=== PATIENT | female | born 1955 | race Caucasian/White ===

== ENCOUNTER → 2016-07-30 | Outpatient (CLI) | payer OTHER ==
[~2016-07-30] MED LIST: ACET-1256 PO; ADVIN25/60 INH; ALBU1AER9 INH; CHOL2000 PO; FURO-85 PO; LOSA50TA54 PO; LXP/20 PO; MISCCAP80 PO; OMEP20TA PO; PRAV40TA2 PO; PYRI100T4 PO; TPRSR/25 PO
[2016-07-30 18:22] LABS: ALT/SGPT 29 U/L (12-78); AST/SGOT 17 U/L (15-37); BLOOD UREA NITROGEN 21 mg/dl (7-18); BUN/CREATININE RATIO 20.5 (10-20); CALCIUM 8.8 mg/dl (8.5-10.1); CARBON DIOXIDE 32 mmol/L (21-32); CHLORIDE 103 mmol/L (98-107); GLUCOSE 84 mg/dl (70-99); SODIUM 141 mmol/L (136-145)
[2016-07-30 18:33] LABS: ALB/GLOB RATIO 0.9 (0.9-2); ALKALINE PHOSPHATASE 78 U/L (45-117); CHOLESTEROL 189 mg/dl (0-200); CHOLESTEROL/HDL RATIO 2.9; HDL CHOLESTEROL 66 mg/dl; LDL CHOLESTEROL CALCULATED 106 mg/dl; TRIGLYCERIDES 84 mg/dl (0-150); VERY LOW DENSITY LIPOPROT CALC 17 mg/dl
== END ==
LOC: C.LABPVFM 14:10
PROVIDERS: ATTEND Family Medicine
DX: I10 Essential (primary) hypertension (principal); E78.5 Hyperlipidemia, unspecified; F41.8 Other specified anxiety disorders; I50.32 Chronic diastolic (congestive) heart failure; E55.9 Vitamin D deficiency, unspecified

== ENCOUNTER → 2017-01-07 | Outpatient (CLI) | payer OTHER ==
--- NOTE | 2017-01-07 15:38 | MAMMOGRAPHY REPORT ---
BILATERAL DIGITAL SCREENING MAMMOGRAM TOMOSYNTHESIS WITH CAD: 01/07/2017 CLINICAL HISTORY: Routine screening. Patient has no complaints. TECHNIQUE: Breast tomosynthesis in addition to standard 2D mammography was performed. Current study was also evaluated with a Computer Aided Detection (CAD) system. COMPARISON: Comparison is made to exams dated: 01/07/2016 mammogram, 01/01/2015 mammogram, 08/08/2013 mammogram, 06/19/2012 mammogram, 06/14/2011 mammogram, and 06/11/2010 mammogram - [facility]. BREAST COMPOSITION: There are scattered areas of fibroglandular density in both breasts. FINDINGS: No suspicious masses, calcifications, or areas of architectural distortion are noted in ei ther breast. There has been no significant interval change compared to prior exams. Scattered bilater al benign-appearing calcifications are not significantly changed. A marker clip is again noted withi n the left 12:00 breast. Circumscribed oval benign-appearing 7 mm mass within the left upper inner q uadrant posteriorly is stable dating back to at least the 2014 exam. IMPRESSION: ACR BI-RADS CATEGORY 2: BENIGN There is no mammographic evidence of malignancy. A 1 year screening mammogram is recommended. The pa tient will receive written notification of the results. Approximately 10% of breast cancers are not detected with mammography. A negative mammographic report should not delay biopsy if a clinically suggestive mass is present. Charo Alas M.D. /:01/07/2017 15:23:01 Title Insurance Agent: Jewell HUI(Alena)(Johnson)(PIETRO), [facility] letter sent: Normal 1/2 BI-RADS Code: ACR BI-RADS Category 2: Benign
== END | disposition home or self-care (01) ==
LOC: C.MAMM 11:06
PROVIDERS: ATTEND Family Medicine
DX: Z12.31 Encounter for screening mammogram for malignant neoplasm of breast (principal)

== ENCOUNTER → 2017-01-27 | Outpatient (CLI) | payer OTHER ==
[2017-01-27 18:01] LABS: ALT/SGPT 32 U/L (12-78); BLOOD UREA NITROGEN 17 mg/dl (7-18); BUN/CREATININE RATIO 17.6 (10-20); CARBON DIOXIDE 32 mmol/L (21-32); CHLORIDE 103 mmol/L (98-107); CHOLESTEROL 182 mg/dl (0-200); CREATININE 0.98 mg/dl (0.60-1.20); GLUCOSE 85 mg/dl (70-99); POTASSIUM 4.2 mmol/L (3.5-5.1); SODIUM 139 mmol/L (136-145)
[2017-01-27 18:04] LABS: ALB/GLOB RATIO 1.3 (0.9-2); ALKALINE PHOSPHATASE 69 U/L (45-117); AST/SGOT 21 U/L (15-37); CHOLESTEROL/HDL RATIO 2.8; HDL CHOLESTEROL 64 mg/dl; LDL CHOLESTEROL CALCULATED 99 mg/dl; TRIGLYCERIDES 95 mg/dl (0-150); VERY LOW DENSITY LIPOPROT CALC 19 mg/dl
== END | disposition home or self-care (01) ==
LOC: C.LABPVFM 12:11
PROVIDERS: ATTEND Family Medicine
DX: K21.9 Gastro-esophageal reflux disease without esophagitis (principal); J45.909 Unspecified asthma, uncomplicated; I50.32 Chronic diastolic (congestive) heart failure; F41.8 Other specified anxiety disorders; E78.5 Hyperlipidemia, unspecified; I11.0 Hypertensive heart disease with heart failure

== ENCOUNTER → 2017-09-07 | Outpatient (CLI) | payer OTHER ==
--- NOTE | 2017-09-07 14:13 | DIAGNOSTIC IMAGING REPORT ---
LEFT SHOULDER 3 VIEWS HISTORY: LT SHOULDER PAIN COMPARISON: None. FINDINGS: There is no fracture or dislocation. The left clavicle is intact. Mild AC joint arthrosis. Moderate cartilage space narrowing with subchondral sclerosis and marginal osteophytes at the glenohumeral joint. This is consistent with osteoarthritis. No radiopaque foreign bodies. IMPRESSION: 1. No fracture or dislocation within the left shoulder. 2. Moderate osteoarthritis at the glenohumeral joint. Electronically signed by: Wilder Vaca M.D. 09/07/2017 2:12 PM Dictated Date/Time: 09/07/2017 2:11 PM
[2017-09-07 17:48] LABS: BLOOD UREA NITROGEN 16 mg/dl (7-18); CARBON DIOXIDE 30 mmol/L (21-32); CREATININE 0.89 mg/dl (0.60-1.20); GLUCOSE 87 mg/dl (70-99); POTASSIUM 4.2 mmol/L (3.5-5.1); SODIUM 141 mmol/L (136-145)
[2017-09-07 17:49] LABS: ALBUMIN 3.8 gm/dl (3.4-5.0); ALKALINE PHOSPHATASE 76 U/L (45-117); ALT/SGPT 22 U/L (12-78); AST/SGOT 16 U/L (15-37); CALCIUM 8.8 mg/dl (8.5-10.1); CHOLESTEROL 204 mg/dl (0-200); LDL CHOLESTEROL CALCULATED 111 mg/dl; TOTAL PROTEIN 7.7 gm/dl (6.4-8.2)
== END | disposition home or self-care (01) ==
LOC: C.LABPVFM 13:21
PROVIDERS: ATTEND Family Medicine
DX: M25.512 Pain in left shoulder (principal); I10 Essential (primary) hypertension; E78.5 Hyperlipidemia, unspecified; J45.909 Unspecified asthma, uncomplicated; F41.8 Other specified anxiety disorders; I50.32 Chronic diastolic (congestive) heart failure; K21.9 Gastro-esophageal reflux disease without esophagitis

== ENCOUNTER 2020-08-29 07:57 | Observation (INO) ==
--- NOTE | 2020-08-06 12:41 | PAT Medication Instructions ---
Medication Instructions Date of Service August 06, 2020 Home Medications Medication Instructions Recorded acetaminophen 500 mg tablet 1,000 mg PO DIRECTED PRN #30 tab 09/29/18 fluticasone 250 mcg-salmeterol 50 See Rx Instructions .ROUTE 01/04/20 mcg/dose blistr powdr for .COMPLEX #60 unspecified inhalation furosemide 20 mg tablet 20 mg PO QAM #90 tab 02/11/20 furosemide 20 mg tablet 20 mg PO QAM #90 tab 02/11/20 losartan 50 mg tablet 50 mg PO QAM #90 tab 02/11/20 losartan 50 mg tablet 50 mg PO QAM #90 tab 02/11/20 metoprolol succinate 25 mg 25 mg PO DAILY #90 tab 02/11/20 tablet,extended release 24 hr pravastatin 40 mg tablet 40 mg PO DAILY #90 tab 02/11/20 escitalopram oxalate 20 mg tablet 20 mg PO QAM #90 tab 04/04/20 albuterol sulfate 90 mcg/actuation 2 puff INHALATION BID PRN #18 g 07/09/20 aerosol inhaler tramadol 50 mg tablet 50 mg PO Q8H PRN #30 tab 07/23/20 acetaminophen 500 mg tablet 1,000 mg PO DIRECTED PRN fluticasone 250 mcg-salmeterol 50 mcg/dose blistr powdr for inhalation See Rx Instructions .ROUTE .COMPLEX furosemide 20 mg tablet 20 mg PO QAM losartan 50 mg tablet 50 mg PO QAM metoprolol succinate 25 mg tablet,extended release 24 hr 25 mg PO DAILY pravastatin 40 mg tablet 40 mg PO DAILY escitalopram oxalate 20 mg tablet 20 mg PO QAM albuterol sulfate 90 mcg/actuation aerosol inhaler 2 puff INHALATION BID PRN tramadol 50 mg tablet 50 mg PO Q8H PRN metoprolol succinate 25 mg PO QAM multivitamin 1 tab PO QAM omeprazole 20 mg PO QAM pravastatin 40 mg PO QAM DO NOT take the morning of surgery furosemide 20 mg tablet 20 mg PO QAM losartan 50 mg tablet 50 mg PO QAM multivitamin 1 tab PO QAM Take morning of surgery With a small sip of water, OTHERWISE NOTHING TO EAT OR DRINK AFTER MIDNIGHT: acetaminophen 500 mg tablet 1,000 mg PO DIRECTED PRN (okay to take up to 4 hours prior to surgery if needed) fluticasone 250 mcg-salmeterol 50 mcg/dose blistr powdr for inhalation See Rx Instructions .ROUTE .COMPLEX metoprolol succinate 25 mg tablet,extended release 24 hr 25 mg PO DAILY pravastatin 40 mg tablet 40 mg PO DAILY escitalopram oxalate 20 mg tablet 20 mg PO QAM albuterol sulfate 90 mcg/actuation aerosol inhaler 2 puff INHALATION BID PRN (use if needed; please bring rescue inhaler with you to hospital day of surgery if possible) tramadol 50 mg tablet 50 mg PO Q8H PRN (okay to take up to 4 hours prior to surgery if needed) metoprolol succinate 25 mg PO QAM omeprazole 20 mg PO QAM pravastatin 40 mg PO QAM Take evening before surgery acetaminophen 500 mg tablet 1,000 mg PO DIRECTED PRN (if needed) fluticasone 250 mcg-salmeterol 50 mcg/dose blistr powdr for inhalation See Rx Instructions .ROUTE .COMPLEX albuterol sulfate 90 mcg/actuation aerosol inhaler 2 puff INHALATION BID PRN (if needed) tramadol 50 mg tablet 50 mg PO Q8H PRN (if needed) Other Notes If you have any questions please call us at [phone] or [phone] or [phone] or [phone]
--- NOTE | 2020-08-07 13:26 | Anesthesiology Consultation ---
Date of Service August 07, 2020 The patient will be seen by her PCP prior to surgery. There is some concern about her daily albuterol use. Assessment & Plan (1) Encounter for pre-operative examination: COVID Status: As of 08/07 assessment, patient denies travel to endemic area, known exposure/sick contacts, or symptoms of COVID19. Patient advised to adhere to social distancing guidelines, wear a mask in public and avoid large crowds or unnecessary travel in the 2 weeks leading up to surgery. Preoperative COVID19 testing to be completed prior to surgery per surgeon's arrangements (pt reports 08/20, too far in advance, should be 08/27, will inform surgeon's office). Patient encouraged to be extra cautious/conscientious with COVID precautions between COVID testing and surgery. Possible difficult intubation. Chart Review Chart Review: Acceptable Risk for Surgery and Patient seen in Pre Admission Testing Teaching & Discussion Instructed NPO after midnight before surgery, except medications with 15 cc of water. Medication instructions provided according to the PAT guidelines. History Surgery Operation Date: 08/29/20 08:20 Proposed Procedures p Right Reverse Total Shoulder Arthroplasty - Seb Gonzalez, Height/Weight Height: 5 ft 2 in Weight: 100.7 kg Allergies Allergy/AdvReac Type Severity Reaction Status Date / Time No Known Allergies Allergy Unknown Verified 07/25/20 13:22 Medications Home Medications Medication Instructions Recorded Confirmed Last Taken acetaminophen 500 mg tablet 1,000 mg PO DIRECTED PRN #30 tab 09/29/18 07/25/20 Unknown fluticasone 250 mcg-salmeterol 50 See Rx Instructions .ROUTE 01/04/20 07/25/20 Unknown mcg/dose blistr powdr for .COMPLEX #60 unspecified inhalation furosemide 20 mg tablet 20 mg PO QAM #90 tab 02/11/20 02/11/20 Unknown furosemide 20 mg tablet 20 mg PO QAM #90 tab 02/11/20 07/25/20 Unknown losartan 50 mg tablet 50 mg PO QAM #90 tab 02/11/20 02/11/20 Unknown losartan 50 mg tablet 50 mg PO QAM #90 tab 02/11/20 07/25/20 Unknown metoprolol succinate 25 mg 25 mg PO DAILY #90 tab 02/11/20 02/11/20 Unknown tablet,extended release 24 hr pravastatin 40 mg tablet 40 mg PO DAILY #90 tab 02/11/20 02/11/20 Unknown escitalopram oxalate 20 mg tablet 20 mg PO QAM #90 tab 04/04/20 07/25/20 Unknown albuterol sulfate 90 mcg/actuation 2 puff INHALATION BID PRN #18 g 07/09/20 07/25/20 Unknown aerosol inhaler tramadol 50 mg tablet 50 mg PO Q8H PRN #30 tab 07/23/20 07/25/20 Unknown metoprolol succinate 25 mg PO QAM 07/25/20 07/25/20 Unknown multivitamin 1 tab PO QAM 07/25/20 07/25/20 Unknown omeprazole 20 mg PO QAM 07/25/20 07/25/20 Unknown pravastatin 40 mg PO QAM 07/25/20 07/25/20 Unknown Past Medical History Medical History (Updated 08/07/20 @ 13:46 by Sushil Klein) Asthma Advair daily and albuterol a few times per day Atypical chest pain [place] [facility] [place] for [place]. At the time reported chest discomfort at random but most often during times of increased emotional stress. EKG normal sinus with no acute STT wave abnormality. Also had work-up for this in 2017 with normal DSE. Per cardiology can follow-up as needed but no further cardiovascular testing or intervention recommended. Patient denies any recent chest pain at PAT. Chronic diastolic (congestive) heart failure Follows with PCP, on Lasix daily, low Na+ diet. Euvolemic on exam. 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 No longer on anticoagulation. Exercise / Class Metabolic Activity III < 4 Walking/Shop/Light housework Past Family History Family History (Updated 07/25/20 @ 13:35 by Winsome Serra RN) Grandmother Breast cancer Father Diabetes Heart disease Myocardial infarction Grandfather Diabetes Stroke Brother Myocardial infarction Uncle Family hx of colon cancer Denies family history of Ovarian cancer Prostate cancer Lung cancer Colorectal cancer Hypertension Past Surgical History Surgical History (Updated 08/07/20 @ 13:23 by Sushil Klein) History of carpal tunnel surgery LEFT History of colonoscopy History of hand surgery MASS REMOVAL FROM FINGER History of oral surgery REMOVAL GROWTH UNDER TONGUE S/P tonsillectomy Past Anesthesia History No Hx of Anesthesia Complications and No Family Hx of Anesthesia Complications History of PONV No Hx of PONV and No Hx of Motion Sickness Social History Smoking Status: Never smoker Do You Dip or Chew Tobacco: No Hx Alcohol Use: No Alcohol type: beer Hx Substance Use: No Review of Systems Pt denies any recent chest pain, shortness of breath, palpitations, cough, fever, URI, or uncontrolled acid reflux (controlled with PPI). Physical Exam Vital Signs BP: 112/74 P: 67bpm SPO2: 95% RA T: 98.2 F R: 12 Constitutional + morbidly obese ENMT Mouth: + poor dentition (many missing), + chipped teeth and + macroglossia; no dental restorations and no loose teeth Thyromental Distance: < 3.5 Finger Breadths (2) Mallampati Class: I Neck + short neck and + thick neck; neck extension not limited Respiratory normal respiratory effort, lungs clear to auscultation Cardiovascular RRR, no murmur, no edema Lab Results Anesthesia Preop Results Results Anesthesia Widget: WBC 5.61 K/uL (4.8-10.8) 08/07/20 Hgb 12.5 g/dL (12.0-16.0) 08/07/20 Hct 39.1 % (37-47) 08/07/20 Plt 245 K/uL (130-400) 08/07/20 Na 140 mmol/L (136-145) 08/07/20 K 4.2 mmol/L (3.5-5.1) 08/07/20 Cl 103 mmol/L (98-107) 08/07/20 CO2 30 mmol/L (21-32) 08/07/20 BUN 17 mg/dl (7-18) 08/07/20 Creat 0.80 mg/dl (0.6-1.2) 08/07/20 Glucose Level 90 mg/dl (70-99) 08/07/20 PT 9.9 Seconds (9.0-12.0) 08/07/20 PTT 25.2 Seconds (21.0-31.0) 08/07/20 INR 1.0 (0.9-1.1) 08/07/20 Blood Type A Positive 08/07/20 Antibody Screen NEGATIVE 08/07/20 Testing Electrocardiogram Date: 08/07/20 Findings: + NSR @ (67bpm) and + no change from (2015) Chest X-Ray Date: 08/07/20 FINDINGS: No pneumothorax. No pleural effusion. Minimal atelectasis is seen at the left base. Redemonstration of diffuse prominence of pulmonary interstitium throughout otto ateral lungs, unchanged since prior study performed almost 3 years ago. Cardiomediastinal silhouette is within normal limits in size. Right hilum is enlarged. Aorta is tortuous.. Osseous structures: Degenerative changes of the spine. Interval development of severe degenerative changes of bilateral shoulders. IMPRESSION: 1. Minimal atelectasis at the left base. 2. Prominence of the right hilum. 3. Other findings as above. Stress Test Date: 11/01/16 Type: DSE Negative dobutamine stress echo at 87% MPHR. Patient achieved target heart rate in stage I of protocol with minimal dobutamine in part secondary to anxiety. Normal resting LV size and function with EF 55-60%. Normal RV size and function. No significant valvular pathology.
--- NOTE | 2020-08-28 16:51 | History & Physical Report ---
Date of Service August 28, 2020 Assessment & Plan (1) Osteoarthritis of right shoulder: We will proceed with a right reverse shoulder arthroplasty. Postoperatively she will be placed in a sling and kept overnight in the hospital for postoperative medical management. She plans to go to [facility] for therapy upon discharge. History of Present Illness Chief Complaint: Advanced osteoarthritis of the right shoulder. Primary Care Provider: July Willard MD Erica is a pleasant 65-year-old female who is been doing chronic worsening arthritis of her right shoulder. X-rays and clinical examination have been diagnostic for the arthritis. She had multiple injections in her shoulder without much relief. After failing conservative treatment, she has elected proceed with a right reverse shoulder replacement.. Allergies Allergy/AdvReac Type Severity Reaction Status Date / Time No Known Allergies Allergy Unknown Verified 08/29/20 08:29 Home Medications Medication Instructions Recorded Confirmed Type acetaminophen 500 mg tablet 1,000 mg PO DIRECTED PRN #30 tab 09/29/18 08/29/20 Rx fluticasone 250 mcg-salmeterol 50 See Rx Instructions .ROUTE 01/04/20 08/29/20 Rx mcg/dose blistr powdr for .COMPLEX #60 unspecified inhalation furosemide 20 mg tablet 20 mg PO QAM #90 tab 02/11/20 08/29/20 Rx losartan 50 mg tablet 50 mg PO QAM #90 tab 02/11/20 08/29/20 Rx escitalopram oxalate 20 mg tablet 20 mg PO QAM #90 tab 04/04/20 08/29/20 Rx albuterol sulfate 90 mcg/actuation 2 puff INHALATION BID PRN #18 g 07/09/20 08/29/20 Rx aerosol inhaler tramadol 50 mg tablet 50 mg PO Q8H PRN #30 tab 07/23/20 08/29/20 Rx metoprolol succinate 25 mg PO QAM 07/25/20 08/29/20 History multivitamin 1 tab PO QAM 07/25/20 08/29/20 History omeprazole 20 mg PO QAM 07/25/20 08/29/20 History pravastatin 40 mg PO QAM 07/25/20 08/29/20 History Past Med/Surg History Medical History Asthma Advair daily and albuterol a few times per day Atypical chest pain [place] [facility] [place]. At the time reported chest discomfort at random but most often during times of increased emotional stress. EKG normal sinus with no acute STT wave abnormality. Also had work-up for this in 2017 with normal DSE. Per cardiology can follow-up as needed but no further cardiovascular testing or intervention recommended. Patient denies any recent chest pain at PAT. Chronic diastolic (congestive) heart failure Follows with PCP, on Lasix daily, low Na+ diet. Euvolemic on exam. 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 No longer on anticoagulation. Surgical History History of carpal tunnel surgery LEFT History of colonoscopy History of hand surgery MASS REMOVAL FROM FINGER History of oral surgery REMOVAL GROWTH UNDER TONGUE S/P tonsillectomy Family History Grandmother Breast cancer Father Diabetes Heart disease Myocardial infarction Grandfather Diabetes Stroke Brother Myocardial infarction Uncle Family hx of colon cancer Denies family history of Ovarian cancer Prostate cancer Lung cancer Colorectal cancer Hypertension Social History Smoking Status: Never smoker Second Hand Exposure: Yes (SPOUSE SMOKES); Do You Dip or Chew Tobacco: No; Hx Alcohol Use: No Hx Substance Use: No Preferred Language: Yoruba Communication Ability: Effective Health Program Analyst Required: No Beliefs That Will Affect Care: None marital status: Current Living Situation: Spouse current occupational status: retired How many Children do You have: 2 Other Information That Helps Us Care for You: No Feels Safe at Home: Yes Safety Concerns: Feels Safe At This Time caffeine: Yes (coffee) Dental Care, Regularly: No Physical Activity Frequency: 1-2 Times per Week Seatbelt Use: always Sunscreen Use: No Assistive Devices: Brace/Splint/Immobilizer and Glasses Assistive Devices Comment: BACK BRACE PRN Review of Systems All systems reviewed & are unremarkable except as noted in HPI & below. Physical Exam On physical examination of the right shoulder, she has about 80 degrees of forward elevation 80 degrees of abduction. She also has some weakness possibly secondary to pain.. Constitutional WD/WN, vitals as above Eyes PERRL, conjunctivae normal, anicteric sclerae ENMT external ear and nose normal, oropharynx normal Neck trachea midline, no thyromegaly Respiratory normal respiratory effort Cardiovascular RRR, no murmur, no edema Gastrointestinal (Abdomen) normal bowel sounds, soft, nontender, no hepatosplenomegaly Psychiatric A+Ox3, euthymic affect Results & Data Results & Data Laboratory Results . Diagnostic Findings X-rays of the right shoulder do show advanced osteoarthritis with joint space narrowing, osteophyte formation, and [id number] articulation. PG Care Time/CCT Total # of Minutes Spent Total Time Spent with Patient: Total time spent is greater than 50% in coordination of care (as documented) at patient's floor/unit and/or counseling patient: Coding Level of Care Code None Diagnoses Osteoarthritis of right shoulder M19.011
[~2020-08-29 07:57] MED LIST changes: -ACET-1256 PO; +ACETAMINOPHEN 500 MG TAB PO SCH; -ADVIN25/60 INH; -ALBU1AER9 INH; +BUPIVACAINE 0.5 % 5 MG/1 ML PF 10ML VIAL ONE; -CHOL2000 PO; +FAMOTIDINE 20 MG TAB PO SCH; -FURO-85 PO; +GABAPENTIN 300 MG CAP PO SCH; -LOSA50TA54 PO; +LR 15ML/HR IV SCH; +LR 60ML/HR IV SCH; -LXP/20 PO; -MISCCAP80 PO; -OMEP20TA PO; -PRAV40TA2 PO; -PYRI100T4 PO; -TPRSR/25 PO; +TRANEXAMIC ACID 1,000 MG **IV Pre-op IV SCH; +ceFAZolin 2000MG 2,000 MG/15 ML SYR IV SCH; +dexAMETHasone 4 MG TAB PO SCH
[2020-08-29] MEDS ORDERED: dexAMETHasone 4 MG TAB PO ONE (08:33)
[2020-08-29] MEDS ORDERED: ACETAMINOPHEN 500 MG TAB ONE (08:33)
[2020-08-29] MEDS ORDERED: TRANEXAMIC ACID / 0.7% NACL 1000MG/100ML BAG IV ONE ×2 (08:33→11:40)
[2020-08-29] MEDS ORDERED: FAMOTIDINE 20 MG TAB ONE (08:33)
[2020-08-29] MEDS ORDERED: ceFAZolin 2,000 MG/15 ML IV PUSH IV ONE (08:34)
[2020-08-29] MEDS ORDERED: PHENYLEPHRINE 100MCG/ML 5ML SYR ONE (09:40)
[2020-08-29] MEDS ORDERED: fentaNYL citrate 100 MCG/2 ML VIAL ONE (09:40)
[2020-08-29] MEDS ORDERED: ONDANSETRON INJ 2 MG/ML 2 ML VIAL ONE (09:40)
[2020-08-29] MEDS ORDERED: PROPOFOL IV EMULSION 10 MG/ML 20 ML VIAL IV ONE (09:40)
[2020-08-29] MEDS ORDERED: MIDAZOLAM HCL 1 MG/ML 2ML VIAL ONE (09:40)
[2020-08-29] MEDS ORDERED: ePHEDrine sulfate 50 MG/ML AMP ONE (09:40)
[2020-08-29] MEDS ORDERED: DEXAMETHASONE SOD INJ 4 MG/ML VIAL ONE (09:40)
[2020-08-29] MEDS ORDERED: ATROPINE SULFATE 0.1 MG/ML 10ML SYR IV PRN (10:27)
[2020-08-29] MEDS ORDERED: ePHEDrine sulfate 50 MG/ML AMP IV PRN (10:27)
[2020-08-29] MEDS ORDERED: fentaNYL citrate 100 MCG/2 ML VIAL IV PRN (10:27)
[2020-08-29] MEDS ORDERED: ONDANSETRON INJ 2 MG/ML 2 ML VIAL IV PRN ×2 (10:27→14:35)
--- NOTE | 2020-08-29 10:35 | History & Physical Bridge Note ---
Date of Service August 29, 2020 History & Physical Bridge Note I have examined the patient, reviewed the History & Physical and in the interval since the performance of the History & Physical I have noted the following changes of clinical significance: no changes noted
[2020-08-29] MEDS ORDERED: ROPIVACAINE 0.5% HCL/PF 150 MG, BUPIVACAINE 0.75% MPF 20 ML, EPINEPHrine 30MG/30ML (OR ... INFIL SCH (12:30)
--- NOTE | 2020-08-29 13:20 | Operative Report ---
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 X-rays and clinical examination been diagnostic for advanced osteoarthritis of the right shoulder. After failing conservative treatment, she has elected to proceed with a right reverse shoulder replacement. Description of Procedure A CPT code modifier 59: The long head of the biceps tendon was enlarged and inflamed consistent with tendinopathy. A tenodesis was opted. This was a separate and distinct portion of the procedure. For these reasons, a CPT code modifier 59 will be added to this case. Implants used: I used a [employer]omet Comprehensive reverse total shoulder arthroplasty system with a size 6 press fit micro humeral stem, a standard humeral tray and a +3 humeral bearing, a 25 mm medium augment baseplate with a 6.5 mm central screw and superior and inferior locking screws, and a size 40 mm eccentric glenosphere. Erica arrived at [facility] for the above procedure. She was seen in the preoperative holding area and the operative extremity was identified and signed. She was given a preoperative antibiotic, TXA, and an interscalene nerve block. She was taken back to the operating room, laid on table in supine position, and put under general anesthesia. She was then put into the beachchair position. The shoulder was then prepped and draped in sterile fashion. A timeout was done and the patient and the operative extremity was properly identified. A deltopectoral approach was used. Dissection was taken down through the fascia and the deltoid was retracted laterally and the conjoined tendon was retracted medially. The anterior shoulder was exposed. The biceps groove was opened up and the biceps tendon was examined extensively. The biceps tendon demonstrated enlargement and inflammatory changes consistent with longstanding inflammation in the context of osteoarthritis and cuff arthropathy. The long head of the bic eps tendon was then tenodesed to the upper border of the pectoralis major. This was a separate and distinct portion of the procedure. The subscapularis was then directly released off the lesser tuberosity with a peel technique. The inferior capsule was released and the humeral head was dislocated. A canal finding reamer was sent down the center of the humeral canal. Sequential reaming up to a size 6 reamer was done. Off that reamer, a proximal humeral resection guide was placed. The proximal humerus was resected at 135 of inclination and 25 of retroversion. Osteophytes were then removed and the glenoid was exposed. Time was spent doing a complete capsular and labral release. The glenoid guide was then placed in the inferior aspect of the glenoid. A 3.2 mm Steinmann pin was then placed into the glenoid vault at 10 of inclination. The glenoid baseplate was then reamed. The final size 25 mm medium augment baseplate was then impacted in the place. A 6.5 mm central screw was then placed followed by superior and inferior locking screws. A 40 mm eccentric glenosphere was then impacted into place. Surrounding soft tissues were then injected with 100 cc an orthopedic pain control cocktail. The proximal humerus was then exposed. Sequential broaching of the humerus up to a size 6 broach was done. Off that broach a +3 thickness humeral tray was trialed. The shoulder was then reduced, brought through a full range of motion, and felt to be stable. The shoulder was then dislocated and the broach was removed. The final size 6 micro press-fit humeral stem was then impacted into place. A +3 humeral bearing was then snapped onto a standard offset humeral tray. The humeral tray was then impacted onto the humeral stem. The shoulder was once again reduced, brought through a full range of motion, and felt to be stable. The subscapularis was not able to be repaired. A dilute betadyne lavage was then done for 3 minutes. The joint was then irrigated with normal saline solution. Hemostasis was obtained. The interval was closed with 2-0 Vicryl suture. The skin was then closed with 2-0 Vicryl and jocelyn. A Silverlon dressing was placed and the arm was rested in a regular arm sling. She was then extubated and transferred to a hospital bed. She taken to the postanesthesia care unit in stable condition. She tolerated the procedure well. Seb Peaz PA-C, was present for the entire procedure. He was critical for patient positioning, prepping, draping, retraction exposure, wound closure and application of sterile dressing. I attest to the content of the Intraoperative Record and any orders documented therein. Any exceptions are noted below.
--- NOTE | 2020-08-29 14:23 | XRay Report ---
RIGHT SHOULDER 2 VIEWS CLINICAL HISTORY: Postoperative examination. FINDINGS: 2 portable views of the right shoulder are obtained. The skeletal structures are osteopenic . A right shoulder arthroplasty is in near anatomic alignment. No acute fracture is identified. Mild degenerative change is seen at the acromioclavicular joint. Skin clips, soft tissue swelling, and sub cutaneous gas are expected postoperative findings. The visualized right lung parenchyma appears clear noting basilar atelectasis. IMPRESSION: Expected postoperative findings status post right shoulder arthroplasty. No acute fractur e is seen. Electronically signed by: Sukumar Valenzuela M.D. 08/29/2020 2:22 PM
[2020-08-29] MEDS ORDERED: oxyCODONE HCL IR 5 MG TAB (IMMEDIATE RELEASE) PO PRN (14:35)
[2020-08-29] MEDS ORDERED: MAGNESIUM HYDROXIDE SUSP 30 ML UDC PO PRN (14:35)
[2020-08-29] MEDS ORDERED: METOCLOPRAMIDE HCL INJ 5 MG/ML 2 ML VIAL IV PRN (14:35)
[2020-08-29] MEDS ORDERED: bisacodyL 10 MG SUPP PR PRN (14:35)
[2020-08-29] MEDS ORDERED: SODIUM CHLORIDE 0.9% 1000ML 1,000 ML IV SCH (14:35)
[2020-08-29] MEDS ORDERED: NALOXONE HCL 0.4 MG/1 ML VIAL/CARP IV PRN (14:35)
[2020-08-29] MEDS ORDERED: HYDROmorphone INJ 0.5 MG/0.5 ML SYR IV PRN (14:35)
--- NOTE | 2020-08-29 14:47 | Anesthesiology Progress Note ---
Date of Service August 29, 2020 Anesthesia Post Procedure Vital Signs Vital Signs: Temp Pulse Pulse Resp BP Pulse Ox 08/29/20 14:30 97.7 F 101 H 16 132/80 100 08/29/20 14:15 97.0 F L 94 H 20 155/98 H 95 08/29/20 14:05 86 18 140/87 94 08/29/20 13:55 92 H 18 115/90 94 08/29/20 13:45 83 18 142/82 H 96 08/29/20 13:36 97.5 F L 90 14 149/87 H 98 08/29/20 08:37 98.1 F 79 22 157/89 H 94 Transfer of Care Handoff Completed per policy Notes Mental Status: alert / awake / arousable and participated in evaluation Patient Amnestic to Procedure: Yes Nausea / Vomiting: adequately controlled Pain: adequately controlled Airway Patency, RR, SpO2: stable & adequate BP & HR: stable & adequate Hydration State: stable & adequate Anesthetic Complications: no major complications apparent and Pt Satisfied with anesthetic care
[2020-08-29] MEDS ORDERED: ALBUTEROL HFA 8 GM INHALER INH PRN (14:52)
[2020-08-29] MEDS: ACETAMINOPHEN 500 MG TAB PO SCH ×2 (16:34→23:42)
[2020-08-29] MEDS: KETOROLAC TROMETHAMINE 15 MG/ML VIAL IV SCH ×2 (16:35→22:45)
[2020-08-29] MEDS: ceFAZolin 2000MG 2,000 MG/15 ML SYR IV SCH (20:50)
[2020-08-29] MEDS ORDERED: SENNA 8.6 MG TAB PO SCH (21:00)
[2020-08-29] MEDS: DOCUSATE SODIUM 100 MG CAP PO SCH (22:44)
[2020-08-30] MEDS: KETOROLAC TROMETHAMINE 15 MG/ML VIAL IV SCH ×2 (04:16→08:43)
[2020-08-30] MEDS: ceFAZolin 2000MG 2,000 MG/15 ML SYR IV SCH (04:16)
--- NOTE | 2020-08-30 07:07 | Orthopedic Progress Note ---
Date of Service August 30, 2020 Assessment & Plan (1) Status post reverse total replacement of right shoulder: Overall she is doing very well. She is not having much pain in the right shoulder. She will be seen by physical therapy today for ambulation and range of motion exercises. She can be discharged home later today. She will follow- up with orthopedics in 2 weeks. Natalie Maldonado was seen and examined at bedside this morning. Overall she is doing fairly well. She is not having much pain in the right shoulder. She was able to get some sleep last night. She has no complaints.. Review of Systems All systems reviewed & are unremarkable except as noted in HPI & below. Physical Exam On physical examination of the right shoulder, the dressing is clean and dry. She has active motion of her hand and her wrist. She is wearing her sling as instructed.. Results & Data Results & Data Laboratory Results . Diagnostic Findings Postoperative x-rays of the right shoulder show the prosthesis to be in anatomic alignment without any evidence of fracture, dislocation, or loosening. PG Care Time/CCT Total # of Minutes Spent Total Time Spent with Patient: Total time spent is greater than 50% in coordination of care (as documented) at patient's floor/unit and/or counseling patient: Coding Level of Care Code 90800 Post Operative Follow-Up Diagnoses Status post reverse total replacement of right shoulder Z96.611
--- NOTE | 2020-08-30 07:08 | Discharge Summary ---
Date of Service August 30, 2020 Admission HPI (Per Admitting) Erica is a pleasant 65-year-old female who is been doing chronic worsening arthritis of her right shoulder. X-rays and clinical examination have been diagnostic for the arthritis. She had multiple injections in her shoulder without much relief. After failing conservative treatment, she has elected proceed with a right reverse shoulder replacement.. Admission Exam (Per Admitting) On physical examination of the right shoulder, she has about 80 degrees of forward elevation 80 degrees of abduction. She also has some weakness possibly secondary to pain.. Principal Diagnosis Same as "Discharge Diagnosis" noted below under Discharge Instructions. Discharge Exam On physical examination of the right shoulder, the dressing is clean and dry. She has active motion of her hand and her wrist. She is wearing her sling as instructed.. Discharge Data Procedures Performed Operation Date: 08/29/20 10:20 Actual Procedures p Right Reverse Total Shoulder Arthroplasty(Right) - Seb Gonzalez DO Ordered Studies 08/29/20 05:00 US - OR guided needle placemen Routine Hospital Course (1) Status post reverse total replacement of right shoulder: On August 29, [address] [facility] and underwent a right reverse shoulder replacement without complication. She had a general anesthetic and a right interscalene nerve block. Postoperatively she was placed in an arm sling and transferred to the general orthopedic floors. Her hospital course was uneventful. On postop day #1 her vital signs were stable and her. Was well controlled. She was able to participate well with physical therapy doing ambulation and range of motion exercises. She was then discharged to home. She will follow-up with orthopedics in 2 weeks. PG Care Time/CCT Total # of Minutes Spent Total Time Spent with Patient: Total time spent is greater than 50% in coordination of care (as documented) at patient's floor/unit and/or counseling patient: Discharge Plan Discharge Items Patient Disposition: Home - Home Health Services Reason For Visit: z01.818 Right Shoulder Osteoarthritis Discharge Diagnosis: Right reverse shoulder replacement Activity: As commented below Non-emergency contact: Surgeon Call non-emergency contact if: your wound has increased redness and your wound has increased drainage Follow-up/Referrals: July Willard MD [Primary Care Provider] - Diet: Regular Addtl Attending Provider Instructions: Activity and Therapy Recommendations: * If you are using [facility] then therapy will be provided at your home until they feel you have accomplished all of your goals. * If you are using [facility] then Physical Therapy will be provided until they feel you are ready to start Outpatient Physical Therapy. * If you are not using home therapy then Outpatient Physical Therapy should start about 3-5 days from your day of surgery. Therapy will last about 8-12 weeks * Wear your sling for 3 weeks, unless otherwise instructed. You may remove your sling to shower and to dress, but otherwise, you should be in your sling at all times, including while sleeping * The shoulder replacement is very stable and you can use your hand while in the sling * You were shown a series of exercises in the hospital. Do these exercises daily including the exercises you were shown in physical therapy. Medications: * Narcotic You will likely be sent home from the hospital with a prescription for the narcotic pain medication that worked best throughout your stay. * Other medications may be prescribed for specific circumstances. If you have any questions, please call the office at . * Resume previous home medications unless otherwise instructed Dressing Care: Leave the Silverlon dressing in place for 7 days. After 7 days you may remove the dressing. If the incision is not draining then you may leave the jocelyn open to air. If there is a little bit of drainage or if the jocelyn are getting stuck on your clothing then cover the incision with a dry dressing. The jocelyn will be removed at your 2 week follow-up appointment. Showering: You may shower with the Silverlon dressing in place. Do not let the shower spray hit the dressing directly. Pat the Silverlon dressing dry. If the dressing becomes wet underneath, then simply remove the dressing. Keep the incision dry until you are 7 days out from the day of surgery. After 7 days you may remove the Silverlon dressing and shower with the jocelyn exposed. Let soapy water run over the jocelyn and pat them dry. Do not scrub or soak the incision. Things To Watch For: * Drainage from the incision site that occurs more than one week after your surgery. * Increased redness at the incision site. * Fever above 102 degrees Fahrenheit. * Unusual chest pain or shortness of breath. * Call [facility] at with any of the above problems Follow-Up Visit: Follow-up with Dr. Gonzalez's PA (Seb Paez) 2-3 weeks after your day of surgery. He will remove your jocelyn and answer any questions. If you have any additional questions or concerns, Dr Gonzalez is usually in the office at the same time and will be available An appointment was probably scheduled when you signed-up for surgery in the office. If you have any questions call More detailed instructions as well as Frequently Asked Questions were provided in a folder by our office when you signed-up for surgery. Please review these instructions when you get home. If you have any further questions or concerns, please feel free to call the office at [phone] Pending Studies at Discharge: No Stand-Alone Forms: [facility] [employer], Smoking Cessation Medications and DC Order Prescriptions: New oxycodone 5 mg Tablet 5 mg PO Q4H PRN (Reason: pain) Qty: 30 RF: 0 Continued fluticasone propion-salmeterol [Advair Diskus] 250-50 mcg/dose blister with device See Rx Instructions .ROUTE .COMPLEX Qty: 60 RF: 5 escitalopram oxalate [Lexapro] 20 mg tablet 20 mg PO QAM Qty: 90 RF: 3 albuterol sulfate [ProAir HFA] 90 mcg/actuation HFA aerosol inhaler 2 puff INHALATION BID PRN (Reason: Shortness Of Breath Or Wheezing) Qty: 18 RF: 5 tramadol 50 mg tablet 50 mg PO Q8H PRN (Reason: pain) Qty: 30 RF: 0 acetaminophen [Tylenol Extra Strength] 500 mg tablet 1,000 mg PO DIRECTED PRN (Reason: Pain) Qty: 30 RF: 2 losartan 50 mg tablet 50 mg PO QAM Qty: 90 RF: 1 furosemide [Lasix] 20 mg tablet 20 mg PO QAM Qty: 90 RF: 1 multivitamin Tablet 1 tab PO QAM RF: 0 pravastatin 40 mg tablet 40 mg PO QAM RF: 0 omeprazole 20 mg capsule,delayed release(DR/EC) 20 mg PO QAM RF: 0 metoprolol succinate 25 mg tablet extended release 24 hr 25 mg PO QAM RF: 0 Discharge Orders: Discharge Order (Routine); Ordered 08/30/20 Ordered By: Seb Gonzalez Admission Data Admit Date/Time: 08/29/20 13:37 Attending Provider: Seb Gonzalez Admit Provider: Seb Gonzalez Primary Care Provider: July Willard
[2020-08-30] MEDS ORDERED: dexAMETHasone 4 MG TAB PO SCH (08:00)
[2020-08-30] MEDS: DOCUSATE SODIUM 100 MG CAP PO SCH (08:45)
[2020-08-30] MEDS: ACETAMINOPHEN 500 MG TAB PO SCH (08:47)
[2020-08-30] MEDS ORDERED: METOPROLOL SUCC 25MG EXT REL TAB PO SCH (09:00)
[2020-08-30] MEDS ORDERED: FLUTICASONE/VILANTEROL 200/25MCG 14 PUFFS/INHALER INH SCH (09:00)
[2020-08-30] MEDS ORDERED: FUROSEMIDE 20 MG TAB PO SCH (09:00)
[2020-08-30] MEDS ORDERED: ESCITALOPRAM OXALATE 20 MG TAB PO SCH (09:00)
[2020-08-30] MEDS ORDERED: MULTIVITAMIN TAB PO SCH (09:00)
[2020-08-30] MEDS ORDERED: LOSARTAN POTASSIUM 50 MG TAB PO SCH (09:00)
== END 2020-08-30 11:45 | disposition home health service (06) ==
LOC: ASU 07:57 → 3E 13:37 → INTOOBSV 13:37

== ENCOUNTER 2020-09-01 22:55 | Observation (INO) ==
[2020-09-02] MEDS ORDERED: SODIUM CHLORIDE 0.9% 1000ML 1,000 ML IV SCH (01:00)
[2020-09-02 01:15] LABS: Basophils # (auto) 0.01 K/uL (0-0.2); Basophils % (auto) 0.1 %; Eosinophils # (auto) 0.05 K/uL (0-0.5); Eosinophils % (auto) 0.7 %; Hematocrit (blood only) 36.1 % (37-47); Hemoglobin 11.5 g/dL (12.0-16.0); Immature Granulocytes # (auto) 0.02 K/uL (0.00-0.02); Immature Granulocytes % (auto) 0.3 %; Lymphocytes # (auto) 2.05 K/uL (1.2-3.4); Lymphocytes % (auto) 29.5 %; Mean Corpuscular Hemoglobin 26.9 pg (25-34); Mean Corpuscular Hgb Conc 31.9 g/dL (32-36); Mean Corpuscular Volume 84.5 fL (80-100); Monocytes % (auto) 8.6 %; Neutrophils # (auto) 4.22 K/uL (1.4-6.5); Neutrophils % (auto) 60.8 %; Platelet Count 291 K/uL (130-400); RDW Coefficient of Variation 16.3 % (11.5-14.5); RDW Standard Deviation 50.5 fL (36.4-46.3); Red Blood Count 4.27 M/uL (4.2-5.4); White Blood Count 6.95 K/uL (4.8-10.8)
[2020-09-02 01:25] LABS: Albumin Level 3.4 gm/dl (3.4-5.0); BUN Creatinine Ratio 21.3 (10-20); Calcium 8.6 mg/dl (8.5-10.1); Creatinine Clr Calc Pharmacy 73.5 ml/min; Est GFR (African American) 84.6 ml/min; Magnesium 2.2 mg/dl (1.8-2.4); Potassium 3.6 mmol/L (3.5-5.1)
[2020-09-02 01:36] LABS: Albumin Globulin Ratio 0.9 (0.9-2); Bilirubin,Total 0.5 mg/dl (0.2-1); Globulin 3.6 gm/dl (2.5-4.0); Thyroid Stimulating Hormone 2.34 uIu/ml (0.300-4.500)
[2020-09-02] MEDS ORDERED: oxyCODONE HCL IR 5 MG TAB (IMMEDIATE RELEASE) PO PRN ×2 (03:06→03:21)
--- NOTE | 2020-09-02 03:07 | Emergency Department Note ---
History of Present Illness General Chief complaint: Leg Injury/Pain Stated complaint: LEG PAIN/SWELLING Source: patient, RN notes reviewed and friends (At the bedside) Mode of arrival: EMS Limitations: no limitations History of Present Illness Provider complaint: Concern for DVT Maximum Pain Intensity: 8 This patient is a 65-year-old female who presents emergency department with complaints of bilateral lower extremity discomfort. Patient states she had a right shoulder replacement performed last week and subsequently felt trying to get into bed. She sustained a periprosthetic fracture and has been in a sling since that time. Her orthopedic surgeon is aware of the incident. Patient states she has had a DVT in the past and is concerned about lower extremity edema. She states she was supposed to have in-home nursing care however her orthopedic surgeon's office has had great difficulty getting this approved through her insurance company. She was not approved for a rehab stay. Patient's friend at the bedside states she does not have any support from her and friends are fearful of taking care of the patient due to her risk of falling. Patient states she has not had any "hygiene care" since the day of surgery. Patient denies any chest pain, significant shortness of breath, headache neck pain or recurrent falls. She states she woke up from a nap and noticed the increase in lower extremity edema. She denies that one leg is worse than the other. Patient is not currently anticoagulated. Home Medications Medication Instructions Recorded Confirmed Type furosemide 20 mg tablet (Lasix) 20 mg PO QAM #90 tab 02/11/20 09/02/20 Rx losartan 50 mg tablet 50 mg PO QAM #90 tab 02/11/20 09/02/20 Rx escitalopram oxalate 20 mg tablet 20 mg PO QAM #90 tab 04/04/20 09/02/20 Rx (Lexapro) albuterol sulfate 90 mcg/actuation 2 puff INHALATION BID PRN #18 g 07/09/20 09/02/20 Rx aerosol inhaler (ProAir HFA) metoprolol succinate 25 mg 25 mg PO QAM 07/25/20 09/02/20 History tablet,extended release 24 hr multivitamin 1 tab PO QAM 07/25/20 09/02/20 History omeprazole 20 mg capsule,delayed 20 mg PO QAM 07/25/20 09/02/20 History release pravastatin 40 mg tablet 40 mg PO QAM 07/25/20 09/02/20 History fluticasone 250 mcg-salmeterol 50 1 inh INHALATION Q12H 09/02/20 09/02/20 History mcg/dose blistr powdr for inhalation (Advair Diskus) acetaminophen 500 mg tablet 1,000 mg PO TID PRN #30 tab 09/03/20 09/02/20 Rx (Tylenol Extra Strength) aspirin 81 mg tablet,delayed 81 mg PO BID 14 Days #28 tab 09/03/20 Rx release (Aspirin Low Dose) oxycodone 5 mg tablet 5 mg PO Q4H PRN #10 tab 09/03/20 Rx polyethylene glycol 3350 17 gram 17 g PO DAILY #14 ea 09/03/20 Rx oral powder packet (Miralax) Allergies Allergy/AdvReac Type Severity Reaction Status Date / Time No Known Allergies Allergy Unknown Verified 09/02/20 00:46 Past Med/Surg History Medical History Asthma Advair daily and albuterol a few times per day Atypical chest pain Se[place] [facility] 03/07/2019 for this. At the time reported chest discomfort at random but most often during times of increased emotional stress. EKG normal sinus with no acute STT wave abnormality. Also had work-up for this in 2017 with normal DSE. Per cardiology can follow-up as needed but no further cardiovascular testing or intervention recommended. Patient denies any recent chest pain at PAT. Chronic diastolic (congestive) heart failure Follows with PCP, on Lasix daily, low Na+ diet. Euvolemic on exam. Depression with anxiety GERD (gastroesophageal reflux disease) Hyperlipidemia Hypertension Obstructive sleep apnea NO DEVICE SOB (shortness of breath) on exertion Venous thromboembolism (~2009) DVT/PE. No longer on anticoagulation. Surgical History History of carpal tunnel surgery LEFT History of colonoscopy History of hand surgery MASS REMOVAL FROM FINGER History of oral surgery REMOVAL GROWTH UNDER TONGUE S/P tonsillectomy Family History Grandmother Breast cancer Father Diabetes Heart disease Myocardial infarction Grandfather Diabetes Stroke Brother Myocardial infarction Uncle Family hx of colon cancer Denies family history of Ovarian cancer Prostate cancer Lung cancer Colorectal cancer Hypertension Social History Smoking Status: Former smoker Tobacco Type: Cigarettes Cigarettes Per Day: Couple per day, quit 8 years ago; Second Hand Exposure: No; Hx Alcohol Use: Yes Alcohol type: beer Alcohol Intake Frequency: Monthly or Less Hx Substance Use: No Preferred Language: Pashto Communication Ability: Effective Billing Department Supervisor Required: No Beliefs That Will Affect Care: None marital status: Current Living Situation: Spouse Current Living Situation Comment: double wide home, 4 steps to enter, current occupational status: retired How many Children do You have: 2 Feels Safe at Home: Yes caffeine: Yes (coffee) Dental Care, Regularly: No Physical Activity Frequency: 1-2 Times per Week Seatbelt Use: always Sunscreen Use: No Assistive Devices: None Review of Systems See HPI for pertinent positives & negatives. and A total of 10 systems reviewed and were otherwise negative Physical Exam Vital Signs Vital Signs - 24 hr 09/01/20 22:43 09/02/20 00:43 09/02/20 00:58 Pulse Rate 85 75 Pulse Rate [Apical] 75 Respiratory Rate 22 20 20 Blood Pressure 127/78 Blood Pressure [Left Arm] 140/67 Blood Pressure Mean 94 Blood Pressure Mean [Left Arm] 91 Blood Pressure Position [Left Arm] Pulse Oximetry 95 99 99 Oxygen Delivery Method Room Air Room Air Oxygen Flow Rate Sepsis Recent Fever Within 48 Hours No Sepsis New/Unexplained Change in Mental Status N/A Sepsis Action Taken by Nursing No Action Required 09/02/20 01:35 09/02/20 03:04 Pulse Rate Pulse Rate [Apical] 85 Respiratory Rate 22 Blood Pressure Blood Pressure [Left Arm] 171/105 H Blood Pressure Mean Blood Pressure Mean [Left Arm] 127 Blood Pressure Position [Left Arm] Sitting Pulse Oximetry 96 94 Oxygen Delivery Method Nasal Cannula Room Air Oxygen Flow Rate 2 Sepsis Recent Fever Within 48 Hours Sepsis New/Unexplained Change in Mental Status Sepsis Action Taken by Nursing Vital signs reviewed. General: Somewhat disheveled 65-year-old female, in no significant distress. HEENT: No scleral icterus, PERRLA, neck supple. Atraumatic. Cardiovascular: Regular rate and rhythm, no extra sounds. Pulmonary: Clear to auscultation bilaterally, normal work of breathing. Abdomen: Soft, nontender, nondistended, positive bowel sounds. Musculoskeletal: Right upper extremity sling in place, twisted about the upper body, no significant right upper extremity edema, neurovascularly intact. Minimal bilateral lower extremity edema, 1+ pitting bilaterally, symmetric. Neurologic: Patient awake alert and oriented x 3 Skin: Warm, dry, no rash Course Administered Medications Discontinued Medications Acetaminophen (Acetaminophen 500 Mg Tab) 1,000 mg PO Q8H [facility] Stop: 10/02/20 03:59 Last Admin: 09/03/20 11:52 Dose: 1,000 mg Documented by: [id number] Admin: 09/03/20 04:19 Dose: 1,000 mg Documented by: [id number] Admin: 09/02/20 21:14 Dose: 1,000 mg Documented by: [id number] Admin: 09/02/20 11:24 Dose: 1,000 mg Documented by: [id number] Admin: 09/02/20 05:14 Dose: 1,000 mg Documented by: [id number] Escitalopram Oxalate (Escitalopram Oxalate 20 Mg Tab) 20 mg PO QAM [facility] Stop: 10/02/20 08:59 Last Admin: 09/03/20 09:09 Dose: 20 mg Documented by: [id number] Admin: 09/02/20 08:23 Dose: 20 mg Documented by: [id number] Fluticasone/Vilanterol (Fluticasone/Vilanterol 200/25mcg 14 Puffs/Inhaler) 1 puffs INH DAILY [facility] Stop: 10/02/20 08:59 Last Admin: 09/03/20 09:09 Dose: 1 puffs Documented by: [id number] Admin: 09/02/20 08:23 Dose: 1 puffs Documented by: [id number] Furosemide (Furosemide 20 Mg Tab) 20 mg PO QAM [facility] Stop: 10/02/20 08:59 Last Admin: 09/03/20 09:09 Dose: 20 mg Documented by: [id number] Admin: 09/02/20 08:24 Dose: 20 mg Documented by: [id number] Heparin Sodium (Porcine) (Heparin Sod 5,000 Unit/0.5 Ml Vial) 5,000 units SQ Q8 [facility] Stop: 10/02/20 05:59 Last Admin: 09/03/20 15:18 Dose: 5,000 units Documented by: [id number] Admin: 09/03/20 06:07 Dose: 5,000 units Documented by: [id number] Admin: 09/02/20 21:15 Dose: 5,000 units Documented by: [id number] Admin: 09/02/20 13:49 Dose: 5,000 units Documented by: [id number] Admin: 09/02/20 05:15 Dose: 5,000 units Documented by: [id number] Sodium Chloride (Nss 1000ml) 1,000 mls @ 125 mls/hr IV .Q8H [facility] Stop: 09/02/20 08:59 Last Infusion: 09/02/20 05:59 Dose: 0 mls/hr Documented by: [id number] Admin: 09/02/20 01:28 Dose: 125 mls/hr Documented by: [id number] Ketorolac Tromethamine (Ketorolac Tromethamine 10 Mg Tablet) 10 mg PO Q6H PRN PRN Reason: moderate pain Stop: 09/07/20 04:01 Last Admin: 09/03/20 15:18 Dose: 10 mg Documented by: [id number] Admin: 09/03/20 07:16 Dose: 10 mg Documented by: [id number] Losartan Potassium (Losartan Potassium 50 Mg Tab) 50 mg PO [facility] Stop: 10/02/20 08:59 Last Admin: 09/03/20 09:09 Dose: 50 mg Documented by: [id number] Admin: 09/02/20 08:24 Dose: 50 mg Documented by: [id number] Metoprolol Succinate (Metoprolol Succ 25mg Ext Rel Tab) 25 mg PO [facility] Stop: 10/02/20 08:59 Last Admin: 09/03/20 09:09 Dose: 25 mg Documented by: [id number] Admin: 09/02/20 08:24 Dose: 25 mg Documented by: [id number] Multivitamins (Multivitamin Tab) 1 tab PO [facility] Stop: 10/02/20 08:59 Last Admin: 09/03/20 09:09 Dose: 1 tab Documented by: [id number] Admin: 09/02/20 08:24 Dose: 1 tab Documented by: [id number] Oxycodone HCl (Oxycodone Hcl Ir 5 Mg Tab (Immediate Release)) 5 mg PO Q4H PRN PRN Reason: severe pain and prePT Stop: 09/16/20 03:05 Last Admin: 09/02/20 18:08 Dose: 5 mg Documented by: [id number] Pantoprazole Sodium (Pantoprazole 40 Mg Tab) 40 mg PO [facility] Stop: 10/02/20 08:59 Last Admin: 09/03/20 09:10 Dose: 40 mg Documented by: [id number] Admin: 09/02/20 08:24 Dose: 40 mg Documented by: [id number] Polyethylene Glycol (Polyethylene (Miralax) 17 Gm Pack) 17 gm PO DAILY [facility] Stop: 10/02/20 18:14 Last Admin: 09/03/20 09:10 Dose: Not Given Documented by: [id number] Admin: 09/02/20 18:23 Dose: 17 gm Documented by: [id number] Pravastatin Sodium (Pravastatin Sod 40 Mg Tab) 40 mg PO QAM [facility] Stop: 10/02/20 08:59 Last Admin: 09/03/20 09:10 Dose: 40 mg Documented by: [id number] Admin: 09/02/20 08:24 Dose: 40 mg Documented by: [id number] Senna/Docusate Sodium (Docusate Sodium/Senna 50/8.6mg Tab) 1 tab PO QAM [facility] Stop: 10/02/20 18:14 Last Admin: 09/03/20 09:09 Dose: Not Given Documented by: [id number] Admin: 09/02/20 18:22 Dose: 1 tab Documented by: [id number] Medical Decision Making Differential Diagnosis DVT, musculoskeletal, infection, joint effusion, trauma, lymphedema, idiopathic, CHF, as well as other pathologies. Medical Records Attestation: I reviewed the patient's medical records. Home Medications Current Medication List: was personally reviewed by me Laboratory Data Attestation: I reviewed the patient's lab results. Result diagrams: 09/01/20 23:11 09/01/20 23:11 Lab Results 09/01/20 09/01/20 09/02/20 Range/Units 23:11 23:11 01:19 WBC 6.95 (4.8-10.8) K/uL RBC 4.27 (4.2-5.4) M/uL Hgb 11.5 L (12.0-16.0) g/dL Hct 36.1 L (37-47) % MCV 84.5 (80-100) fL MCH 26.9 (25-34) pg MCHC 31.9 L (32-36) g/dL RDW Std Deviation 50.5 H (36.4-46.3) fL RDW Coeff of Cristian 16.3 H (11.5-14.5) % Plt Count 291 (130-400) K/uL MPV 10.0 (7.4-10.4) fL Immature Gran % (Auto) 0.3 % Neut % (Auto) 60.8 % Lymph % (Auto) 29.5 % Meeker % (Auto) 8.6 % Eos % (Auto) 0.7 % Baso % (Auto) 0.1 % Neut # (Auto) 4.22 (1.4-6.5) K/uL Lymph # (Auto) 2.05 (1.2-3.4) K/uL Meeker # (Auto) 0.60 H (0.11-0.59) K/uL Eos # (Auto) 0.05 (0-0.5) K/uL Baso # (Auto) 0.01 (0-0.2) K/uL Immature Gran # (Auto) 0.02 (0.00-0.02) K/uL Sodium 142 (136-145) mmol/L Potassium 3.6 (3.5-5.1) mmol/L Chloride 107 (98-107) mmol/L Carbon Dioxide 30 (21-32) mmol/L Anion Gap 5.0 (3-11) BUN 18 (7-18) mg/dl Creatinine 0.83 (0.6-1.2) mg/dl Est Cr Clr Drug Dosing 73.5 ml/min Est GFR ( Amer) 84.6 ml/min Est GFR (Non-Af Amer) 73.0 ml/min BUN/Creatinine Ratio 21.3 H (10-20) Glucose 92 (70-99) mg/dl Calcium 8.6 (8.5-10.1) mg/dl Magnesium 2.2 (1.8-2.4) mg/dl Total Bilirubin 0.5 (0.2-1) mg/dl AST 19 (15-37) U/L ALT 20 (12-78) U/L Alkaline Phosphatase 68 (45-117) U/L Total Creatine Kinase 263 H (26-192) U/L Total Protein 7.0 (6.4-8.2) gm/dl Albumin 3.4 (3.4-5.0) gm/dl Globulin 3.6 (2.5-4.0) gm/dl Albumin/Globulin Ratio 0.9 (0.9-2) TSH 2.340 (0.300-4.500) uIu/ml COVID-19 Eval Order Covid19 at [facility] SARS-CoV-2 (PCR) (Negative) 09/02/20 Range/Units 01:19 WBC (4.8-10.8) K/uL RBC (4.2-5.4) M/uL Hgb (12.0-16.0) g/dL Hct (37-47) % MCV (80-100) fL MCH (25-34) pg MCHC (32-36) g/dL RDW Std Deviation (36.4-46.3) fL RDW Coeff of Cristian (11.5-14.5) % Plt Count (130-400) K/uL MPV (7.4-10.4) fL Immature Gran % (Auto) % Neut % (Auto) % Lymph % (Auto) % Meeker % (Auto) % Eos % (Auto) % Baso % (Auto) % Neut # (Auto) (1.4-6.5) K/uL Lymph # (Auto) (1.2-3.4) K/uL Meeker # (Auto) (0.11-0.59) K/uL Eos # (Auto) (0-0.5) K/uL Baso # (Auto) (0-0.2) K/uL Immature Gran # (Auto) (0.00-0.02) K/uL Sodium (136-145) mmol/L Potassium (3.5-5.1) mmol/L Chloride (98-107) mmol/L Carbon Dioxide (21-32) mmol/L Anion Gap (3-11) BUN (7-18) mg/dl Creatinine (0.6-1.2) mg/dl Est Cr Clr Drug Dosing ml/min Est GFR ( Amer) ml/min Est GFR (Non-Af Amer) ml/min BUN/Creatinine Ratio (10-20) Glucose (70-99) mg/dl Calcium (8.5-10.1) mg/dl Magnesium (1.8-2.4) mg/dl Total Bilirubin (0.2-1) mg/dl AST (15-37) U/L ALT (12-78) U/L Alkaline Phosphatase (45-117) U/L Total Creatine Kinase (26-192) U/L Total Protein (6.4-8.2) gm/dl Albumin (3.4-5.0) gm/dl Globulin (2.5-4.0) gm/dl Albumin/Globulin Ratio (0.9-2) TSH (0.300-4.500) uIu/ml COVID-19 Eval Order SARS-CoV-2 (PCR) NEGATIVE (Negative) Imaging Data Radiologist's Impression: Shoulder X-Ray 09/01/20 23:54 XR shoulder RT min 2V routine CLINICAL HISTORY: Right shoulder pain. Postop. COMPARISON STUDY: Right shoulder CT 08/31/2020. Right shoulder CT 08/31/2020. FINDINGS: There is again noted a reverse right total shoulder arthroplasty. Hardware appears intact. No dislocation. Skin jocelyn are in place. No fractures within the right clavicle. No change in the fractured 2.5 cm bony fragment adjacent to the prosthesis. IMPRESSION: No change in the fractured 2.5 cm bony fragment adjacent to the prosthesis. Otherwise, the hardware appears intact. ACT 112: Negative or not required by law. Electronically signed by: Wilder Vaca M.D. 09/02/2020 7:42 AM Venous Doppler Study 09/02/20 00:15 BILATERAL LOWER EXTREMITY VENOUS DOPPLER HISTORY: Acute pain and swelling of the bilateral lower extremities DVT, history, pain recent injury and surgery COMPARISON STUDY: Doppler study 02/16/2010 FINDINGS: There is normal compressibility, flow, and augmentation within the bilateral lower extremity deep venous systems. Bilateral popliteal fossa fluid collection suggestive of Velez's cysts measure up to 4.7 x 1.5 x 1.9 cm on the right and 4.4 x 2.8 x 1.3 cm on the left. IMPRESSION: No DVT within the right or left lower extremity. ACT 112: Negative or not required by law. Electronically signed by: Gerry Conroy M.D. 09/02/2020 6:40 AM Chest X-Ray 09/02/20 00:58 XR chest 1V portable HISTORY: 65 years-old Female weakness acute weakness COMPARISON: 08/07/2020, 12/25/2014 TECHNIQUE: Semierect AP view of the chest FINDINGS: Cardiac silhouette is enlarged. Mild asymmetric right hilar prominence is unchanged and likely secondary to pulmonary vasculature. No pneumothorax, pleural effusion, airspace consolidation or overt pulmonary edema. Mild right hemidiaphragmatic elevation. Blunting of the costophrenic angles suggestive of atelectasis. Severe left glenohumeral osteoarthritis. Reverse right shoulder total joint arthroplasty with overlying skin jocelyn. IMPRESSION: No acute process. ACT 112: Negative or not required by law. The above report was generated using voice recognition software. It may contain grammatical, syntax or spelling errors. Electronically signed by: Gerry Conroy M.D. 09/02/2020 8:13 AM ECG Data Attestation: I personally reviewed and interpreted this ECG as follows: Indication: + weakness Rate (beats per minute): 82 Rhythm: + normal sinus ECG Intervals/blocks: + Normal QRS and + Normal QT-c (453) ECG Shannon: + Normal ECG ST segments: + Normal ST segments ECG Findings: no PACs or no PVCs Comparison ECG Date: no prior available Change: no significant change Blood Pressure Blood Pressure Findings: Normal blood pressure Blood Pressure Disposition: did not require urgent referral MDM Narrative This patient was evaluated and appeared to be in no significant distress. Physical examination is fairly reassuring. Ultrasounds of the bilateral lower extremities were performed and are negative for DVT. IV access was obtained and laboratory work was drawn. Patient's laboratory work was reassuring. EKG reveals no evidence of acute ischemia. After much discussion with the patient and her friend at the bedside, it appears that the patient has no support at home and is unable to get in-home nursing services over the course of the last week. She did fall and sustain the periprosthetic fracture. Patient was discussed with the hospitalist service who will evaluate the patient for further management. Patient may require case management involvement for either rehabilitation services or reattempt at in-home nursing care. Patient is aware of this plan and agrees. Impression & Plan Unable to care for self, Weakness generalized, Mora-prosthetic fracture around prosthetic joint Discharge Plan Visit Data Chief Complaint: Leg Injury/Pain Stated Complaint: LEG PAIN/SWELLING ED Provider: Quin Jackson Discharge Problem: Unable to care for self, Weakness generalized, Mora-prosthetic fracture around prosthetic joint Patient Disposition: Admitted As Inpatient Condition: Fair Discharge Instructions Interventions: ED Discharge Assessment Last Done: 09/02/20 03:45 Discharge Problem: Mora-prosthetic fracture around prosthetic joint Qualifiers: Encounter type: initial encounter Qualified Code(s): M97.9XXA - Periprosthetic fracture around unspecified internal prosthetic joint, initial encounter
--- NOTE | 2020-09-02 03:19 | History & Physical Report ---
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 Periprosthetic fracture right shoulder, weakness: Recently underwent right reverse shoulder replacement by Dr. Gonzalez on 08/29/2020. Evaluated in ER on 08/31/2020 after a fall onto the right shoulder. X-ray and CT right upper extremity confirmed presence of periprosthetic fracture. Plan was for patient to follow with Dr. Gonzalez the following day. Presents today with continued right shoulder pain and worsening weakness. Patient will be admitted for evaluation by orthopedic surgery in the morning, as well as pain control. PT and OT will evaluate given patient's full body weakness. Suspect that this is secondary to deconditioning from recent surgery and poor mobility since discharge. No metabolic causes noted on lab work. Oxycodone as needed for severe pain, as well as before PT. We will also order scheduled Tylenol 1000mg q8h, as well as Toradol 10 mg q6h for moderate pain. Bilateral lower extremity swelling: Complaints today of worsening bilateral lower extremity swelling. Has a history of diastolic heart failure per EMR with stress echo in 2017 showing normal EF. Takes furosemide 20 mg daily. Venous Doppler stat read negative for DVT. Has a history of DVT in the past, saturating well on room air. Suspect subjectively worsened bilateral lower extremity swelling is secondary to poor mobility and stasis since discharge for her shoulder surgery. Lovenox for DVT prophylaxis while admitted. Low-salt diet while admitted. Continue Lasix. GERD: Continue PPI. Depression, anxiety: Continue home escitalopram. Asthma, TOMASA: Continue Advair Diskus, albuterol as needed. Patient has refused CPAP in the past. Monitor oxygen levels while admitted. 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 Was evaluated on 08/31 for right shoulder pain following a fall that day, found to have a periprosthetic fracture. Of note, patient recently underwent right shoulder replacement surgery on 08/[address] Gonzalez. Since 08/31 patient reports that she has been getting more and more weak and having difficulty lifting her arms overhead or performing daily tasks without assistance. She has not e ndorsed any worsening shortness of breath or chest pain, abdominal pain, nausea or vomiting. She does endorse some increased bilateral lower extremity swelling. This weakness that she feels does not seem to be isolated to a specific side. She has not been eating terribly well since her discharge, but does report being hungry now. ER evaluation today showed stable vital signs without hypoxia on room air, lab work which showed a mild anemia to 11.5 (down one-point from 1 month ago prior to surgery), mildly elevated BUN/creatinine ratio, mildly elevated CK to 263. Venous Doppler performed, stat read report no evidence of DVT. Allergies Allergy/AdvReac Type Severity Reaction Status Date / Time No Known Allergies Allergy Unknown Verified 09/02/20 00:46 Home Medications Medication Instructions Recorded Confirmed Type acetaminophen 500 mg tablet 1,000 mg PO DIRECTED PRN #30 tab 09/29/18 09/02/20 Rx furosemide 20 mg tablet 20 mg PO QAM #90 tab 02/11/20 09/02/20 Rx losartan 50 mg tablet 50 mg PO QAM #90 tab 02/11/20 09/02/20 Rx escitalopram oxalate 20 mg tablet 20 mg PO QAM #90 tab 04/04/20 09/02/20 Rx albuterol sulfate 90 mcg/actuation 2 puff INHALATION BID PRN #18 g 07/09/20 09/02/20 Rx aerosol inhaler metoprolol succinate 25 mg PO QAM 07/25/20 09/02/20 History multivitamin 1 tab PO QAM 07/25/20 09/02/20 History omeprazole 20 mg PO QAM 07/25/20 09/02/20 History pravastatin 40 mg PO QAM 07/25/20 09/02/20 History oxycodone 5 mg PO Q4H PRN #30 tab 08/30/20 09/02/20 Rx fluticasone propion-salmeterol 1 inh INHALATION Q12H 09/02/20 09/02/20 History [Advair Diskus] Past Med/Surg History Medical History Asthma Advair daily and albuterol a few times per day Atypical chest pain Seen by [facility] cardiology 03/07/2019 for this. At the time reported chest discomfort at random but most often during times of increased emotional stress. EKG normal sinus with no acute STT wave abnormality. Also had work-up for this in 2017 with normal DSE. Per cardiology can follow-up as needed but no further cardiovascular testing or intervention recommended. Patient denies any recent chest pain at PAT. Chronic diastolic (congestive) heart failure Follows with PCP, on Lasix daily, low Na+ diet. Euvolemic on exam. Depression with anxiety GERD (gastroesophageal reflux disease) Hyperlipidemia Hypertension Obstructive sleep apnea NO DEVICE SOB (shortness of breath) on exertion Venous thromboembolism (~2009) DVT/PE. No longer on anticoagulation. Surgical History History of carpal tunnel surgery LEFT History of colonoscopy History of hand surgery MASS REMOVAL FROM FINGER History of oral surgery REMOVAL GROWTH UNDER TONGUE S/P tonsillectomy Family History Grandmother Breast cancer Father Diabetes Heart disease Myocardial infarction Grandfather Diabetes Stroke Brother Myocardial infarction Uncle Family hx of colon cancer Denies family history of Ovarian cancer Prostate cancer Lung cancer Colorectal cancer Hypertension Social History Smoking Status: Former smoker Tobacco Type: Cigarettes Cigarettes Per Day: Couple per day, quit 8 years ago; Second Hand Exposure: No; Do You Dip or Chew Tobacco: No; Tobacco Cessation Education Requested by Patient: No Hx Alcohol Use: Yes Alcohol type: beer Alcohol Intake Frequency: Monthly or Less Hx Substance Use: No Preferred Language: Yakut Communication Ability: Effective Gericare Aide Teacher Required: No Beliefs That Will Affect Care: None marital status: Current Living Situation: Spouse Current Living Situation Comment: double wide home, 4 steps to enter, current occupational status: retired How many Children do You have: 2 Other Information That Helps Us Care for You: No Feels Safe at Home: Yes Safety Concerns: Feels Safe At This Time caffeine: Yes (coffee) Dental Care, Regularly: No Physical Activity Frequency: 1-2 Times per Week Seatbelt Use: always Sunscreen Use: No Assistive Devices: Brace/Splint/Immobilizer Assistive Devices Comment: Sling to right arm Review of Systems Review of Systems: All systems reviewed & are unremarkable except as noted in HPI & below Constitutional: + malaise and + weakness (full body); no fever and no chills Respiratory: no cough and no dyspnea Cardiovascular: no chest pain, no palpitations and no edema Gastrointestinal: no abdominal pain, no constipation and no diarrhea/loose stools Genitourinary: no dysuria and no hematuria Musculoskeletal: + joint pain (right shoulder) Physical Exam Constitutional: well developed, well nourished and + morbidly obese; no acute distress Eyes: no conjunctival abnormality and no scleral abnormality ENMT: external ear and nose normal, oropharynx normal Neck: thick neck Respiratory: poor air movement throughout; no wheezes, symmetric chest expansion, no crackles, not hypoxic on room air Cardiovascular: Rate/Rhythm: regular rate and regular rhythm Heart Sounds: no murmur Extremities: + edema (trace bilateral LE) Gastrointestinal (Abdomen): normal bowel sounds, soft, nontender, no hepatosplenomegaly Musculoskeletal: right arm in sling. handgrip equal bilaterally Skin: no rashes, warm and dry Neurologic: Resting facial tremor. Normal speech. Alert and oriented. Psychiatric: A+Ox3, euthymic affect Results & Data Results & Data ([facility]) Vital Signs (Past 12 Hours) Vital Signs Pulse Pulse Resp BP BP Pulse Ox 09/02/20 03:04 85 22 171/105 H 94 09/02/20 01:35 96 09/02/20 00:58 75 20 99 09/02/20 00:43 75 20 140/67 99 09/01/20 22:43 85 22 127/78 95 Code Status & VTE Plan VTE Prophylaxis Plan VTE Prophylaxis will be ordered: Yes Supervising Physician Co-Signing Physician Notes Attending addendum: I have physically seen this patient, have supervised the medical residents activities, and agree with the H&P unless as otherwise noted. Assessment and Plan: Periprosthetic right shoulder fracture- Status post right reverse shoulder replacement by Dr. Gonzalez on 08/29/2020 Fracture occurred status post fall Consult orthopedic surgery GERD- Continue omeprazole/pantoprazole Depression with anxiety- Continue Escitalopram Asthma/TOMASA- Continue Advair Diskus and albuterol HFA as needed Remaining orders and notations as noted Resident Activity Tracking Resident Involvement: Resident Care Provided Care Provided: Adult Hospital Medicine (1) Hyperlipidemia Hyperlipidemia type: unspecified Qualified Code(s): E78.5 - Hyperlipidemia, unspecified (2) Periprosthetic fracture around internal prosthetic right shoulder joint Encounter type: initial encounter Qualified Code(s): M97.31XA - Periprosthetic fracture around internal prosthetic right shoulder joint, initial encounter (3) Acid reflux disease Esophagitis presence: without esophagitis Qualified Code(s): K21.9 - Gastro- esophageal reflux disease without esophagitis (4) Hypertension Hypertension type: primary hypertension Qualified Code(s): I10 - Essential (primary) hypertension (5) Asthma Asthma complication type: uncomplicated Asthma persistence: unspecified Asthma severity: unspecified severity Qualified Code(s): J45.909 - Unspecified asthma, uncomplicated
[2020-09-02] MEDS ORDERED: ONDANSETRON INJ 2 MG/ML 2 ML VIAL IV PRN (04:02)
[2020-09-02] MEDS ORDERED: ALBUTEROL HFA 8 GM INHALER INH PRN (04:15)
[2020-09-02] MEDS: ACETAMINOPHEN 500 MG TAB PO SCH ×3 (05:14→21:14)
[2020-09-02] MEDS: HEPARIN SOD 5,000 UNIT/0.5 ML VIAL SQ SCH ×3 (05:15→21:15)
--- NOTE | 2020-09-02 06:41 | Ultrasound Report ---
BILATERAL LOWER EXTREMITY VENOUS DOPPLER HISTORY: Acute pain and swelling of the bilateral lower extremities DVT, history, pain recent injury and surgery COMPARISON STUDY: Doppler study 02/16/2010 FINDINGS: There is normal compressibility, flow, and augmentation within the bilateral lower extremit y deep venous systems. Bilateral popliteal fossa fluid collection suggestive of Velez's cysts measure up to 4.7 x 1.5 x 1.9 cm on the right and 4.4 x 2.8 x 1.3 cm on the left. IMPRESSION: No DVT within the right or left lower extremity. ACT 112: Negative or not required by law. Electronically signed by: Gerry Conroy M.D. 09/02/2020 6:40 AM
--- NOTE | 2020-09-02 07:44 | XRay Report ---
XR shoulder RT min 2V routine CLINICAL HISTORY: Right shoulder pain. Postop. COMPARISON STUDY: Right shoulder CT 08/31/2020. Right shoulder CT 08/31/2020. FINDINGS: There is again noted a reverse right total shoulder arthroplasty. Hardware appears intact. No dislocation. Skin jocelyn are in place. No fractures within the right clavicle. No change in the f ractured 2.5 cm bony fragment adjacent to the prosthesis. IMPRESSION: No change in the fractured 2.5 cm bony fragment adjacent to the prosthesis. Otherwise, t he hardware appears intact. ACT 112: Negative or not required by law. Electronically signed by: Wilder Vaca M.D. 09/02/2020 7:42 AM
--- NOTE | 2020-09-02 08:14 | XRay Report ---
XR chest 1V portable HISTORY: 65 years-old Female weakness acute weakness COMPARISON: 08/07/2020, 12/25/2014 TECHNIQUE: Semierect AP view of the chest FINDINGS: Cardiac silhouette is enlarged. Mild asymmetric right hilar prominence is unchanged and likely second olivia to pulmonary vasculature. No pneumothorax, pleural effusion, airspace consolidation or overt pulm onary edema. Mild right hemidiaphragmatic elevation. Blunting of the costophrenic angles suggestive o f atelectasis. Severe left glenohumeral osteoarthritis. Reverse right shoulder total joint arthroplas ty with overlying skin jocelyn. IMPRESSION: No acute process. ACT 112: Negative or not required by law. The above report was generated using voice recognition software. It may contain grammatical, syntax o r spelling errors. Electronically signed by: Gerry Conroy M.D. 09/02/2020 8:13 AM
[2020-09-02] MEDS: FLUTICASONE/VILANTEROL 200/25MCG 14 PUFFS/INHALER INH SCH (08:23)
[2020-09-02] MEDS: ESCITALOPRAM OXALATE 20 MG TAB PO SCH (08:23)
[2020-09-02] MEDS: MULTIVITAMIN TAB PO SCH (08:24)
[2020-09-02] MEDS: LOSARTAN POTASSIUM 50 MG TAB PO SCH (08:24)
[2020-09-02] MEDS: METOPROLOL SUCC 25MG EXT REL TAB PO SCH (08:24)
[2020-09-02] MEDS: FUROSEMIDE 20 MG TAB PO SCH (08:24)
[2020-09-02] MEDS: PRAVASTATIN SOD 40 MG TAB PO SCH (08:24)
[2020-09-02] MEDS: PANTOprazole 40 MG TAB PO SCH (08:24)
[2020-09-02 12:09] LABS: Appearance Urine Clear (Clear); Bacteria Urine Automated Negative (Negative); Bilirubin Urine Negative (Negative); Blood Urine Negative (Negative); Color Urine Yellow; Epithelial Cell Urine Auto >30 /lpf (0-5); Glucose Urine UA Negative (Negative); Ketones Urine Negative (Negative); Leukocyte Esterase Urine 2+ (Negative); Nitrite Urine Negative (Negative); Protein Urine Negative (Negative); RBC Urine Automated 0-4 /hpf (0-4); Urobilinogen Urine Negative (Negative); pH Urine 5.5 (4.5-7.5)
--- NOTE | 2020-09-02 16:33 | Orthopedic Consultation ---
Date of Service September 02, 2020 Assessment & Plan (1) Periprosthetic fracture around internal prosthetic right shoulder joint: This fracture can be treated conservatively. I will likely keep her in a sling for 6 weeks total instead of 3 weeks. She can see physical therapy and do hand, wrist, and elbow exercises. I want a limit range of motion of the shoulder at this point. She is orthopedically stable for discharge when medically ready. I will see her back my office in about 2 weeks as previously scheduled for suture removal. History of Present Illness Reason for Consultation: Right periprosthetic shoulder fracture. Requesting Physician: . Attending Physician: Concha Presley MD Erica is a pleasant six 5-year-old female who underwent a right reverse shoulder arthroplasty on August 29. She stayed overnight in the hospital. On postop day #1 she was doing well. She was up and ambulating well with physical therapy. She then went home and felt unsteady on her feet. She fell directly onto her right shoulder. She had increasing shoulder pain and had x-rays taken which showed a fracture of the greater tuberosity. She had a CAT scan which confirmed a fracture. My office was aware and I just recommended continue sling treatment. Unfortunately she still did not feel comfortable at home. She then returned to the emergency room and was admitted to the medical service mostly for placement issues. Allergies Allergy/AdvReac Type Severity Reaction Status Date / Time No Known Allergies Allergy Unknown Verified 09/02/20 00:46 Home Medications Medication Instructions Recorded Confirmed Type acetaminophen 500 mg tablet 1,000 mg PO DIRECTED PRN #30 tab 09/29/18 09/02/20 Rx furosemide 20 mg tablet 20 mg PO QAM #90 tab 02/11/20 09/02/20 Rx losartan 50 mg tablet 50 mg PO QAM #90 tab 02/11/20 09/02/20 Rx escitalopram oxalate 20 mg tablet 20 mg PO QAM #90 tab 04/04/20 09/02/20 Rx albuterol sulfate 90 mcg/actuation 2 puff INHALATION BID PRN #18 g 07/09/20 09/02/20 Rx aerosol inhaler metoprolol succinate 25 mg PO QAM 07/25/20 09/02/20 History multivitamin 1 tab PO QAM 07/25/20 09/02/20 History omeprazole 20 mg PO QAM 07/25/20 09/02/20 History pravastatin 40 mg PO QAM 07/25/20 09/02/20 History oxycodone 5 mg PO Q4H PRN #30 tab 08/30/20 09/02/20 Rx fluticasone propion-salmeterol 1 inh INHALATION Q12H 09/02/20 09/02/20 History [Advair Diskus] Past Med/Surg History Medical History Asthma Advair daily and albuterol a few times per day Atypical chest pain Seen by [facility] cardiology 03/07/2019 for this. At the time reported chest discomfort at random but most often during times of increased emotional stress. EKG normal sinus with no acute STT wave abnormality. Also had work-up for this in 2017 with normal DSE. Per cardiology can follow-up as needed but no further cardiovascular testing or intervention recommended. Patient denies any recent chest pain at PAT. Chronic diastolic (congestive) heart failure Follows with PCP, on Lasix daily, low Na+ diet. Euvolemic on exam. Depression with anxiety GERD (gastroesophageal reflux disease) Hyperlipidemia Hypertension Obstructive sleep apnea NO DEVICE SOB (shortness of breath) on exertion Venous thromboembolism (~2009) DVT/PE. No longer on anticoagulation. Surgical History History of carpal tunnel surgery LEFT History of colonoscopy History of hand surgery MASS REMOVAL FROM FINGER History of oral surgery REMOVAL GROWTH UNDER TONGUE S/P tonsillectomy Family History Grandmother Breast cancer Father Diabetes Heart disease Myocardial infarction Grandfather Diabetes Stroke Brother Myocardial infarction Uncle Family hx of colon cancer Denies family history of Ovarian cancer Prostate cancer Lung cancer Colorectal cancer Hypertension Social History Smoking Status: Former smoker Tobacco Type: Cigarettes Cigarettes Per Day: Couple per day, quit 8 years ago; Second Hand Exposure: No; Do You Dip or Chew Tobacco: No; Tobacco Cessation Education Requested by Patient: No Hx Alcohol Use: Yes Alcohol type: beer Alcohol Intake Frequency: Monthly or Less Hx Substance Use: No Preferred Language: Dutch Communication Ability: Effective Instructor Pilot Required: No Beliefs That Will Affect Care: None marital status: Current Living Situation: Spouse Current Living Situation Comment: double wide home, 4 steps to enter, current occupational status: retired How many Children do You have: 2 Other Information That Helps Us Care for You: No Feels Safe at Home: Yes Safety Concerns: Feels Safe At This Time caffeine: Yes (coffee) Dental Care, Regularly: No Physical Activity Frequency: 1-2 Times per Week Seatbelt Use: always Sunscreen Use: No Assistive Devices: Glasses Assistive Devices Comment: Sling to right arm Review of Systems All systems reviewed & are unremarkable except as noted in HPI & below. Physical Exam On physical examination of her right shoulder, the dressing is clean and dry. She is wearing her sling as instructed. The radial, median, and ulnar nerves are checked intact at her wrist.. Constitutional WD/WN, vitals as above Eyes PERRL, conjunctivae normal, anicteric sclerae ENMT external ear and nose normal, oropharynx normal Neck trachea midline, no thyromegaly Respiratory normal respiratory effort Cardiovascular RRR, no murmur, no edema Gastrointestinal (Abdomen) normal bowel sounds, soft, nontender, no hepatosplenomegaly Psychiatric A+Ox3, euthymic affect Results & Data Results & Data Laboratory Results . Diagnostic Findings X-rays of the right shoulder do show a fracture of the greater tuberosity the shoulder implant looks to be in good alignment. CT scan of the right shoulder confirms a fracture of the greater tuberosity. The implant appears to be in good alignment.. PG Care Time/CCT Total # of Minutes Spent Total Time Spent with Patient: Total time spent is greater than 50% in coordination of care (as documented) at patient's floor/unit and/or counseling patient: Coding Level of Care Code 25672 Inpt Consult Level 4 Diagnoses Periprosthetic fracture around internal prosthetic right shoulder joint M97.31XA Encounter type: initial encounter (1) Periprosthetic fracture around internal prosthetic right shoulder joint Encounter type: initial encounter Qualified Code(s): M97.31XA - Periprosthetic fracture around internal prosthetic right shoulder joint, initial encounter
--- NOTE | 2020-09-02 18:08 | History & Physical Bridge Note ---
Date of Service September 02, 2020 History & Physical Bridge Note I have examined the patient, reviewed the History & Physical and in the interval since the performance of the History & Physical I have noted the following changes of clinical significance: Patient reports her pain is present but is fairly well controlled with oxycodone. She mostly reports that she came into the hospital because her legs were swollen and she was worried that she had a blood clot. She is able to ambulate around her room today to the bathroom and back. She is urinating but has not moved her bowels in 5 days. She denies chest pains or shortness of breath. No nausea or vomiting. She is eating and drinking. She was seen by orthopedics today and that consultation was reviewed-recommends discharge from orthopedic standpoint and to remain with right upper extremity in sling x6 weeks. She is able to do hand, wrist, and elbow exercises but he wants a limited range of motion of the shoulder at this point and to follow-up with orthopedics in the office in 2 weeks for suture removal. Gen: AAOx3, NAD HEENT: Anicteric sclerae, EOMI CV: RRR no mgr nl S1S2 Pulm: CTAB no wcr Abd: +BS soft NT ND no masses or hernias Ext: RUE in sling, neurovascularly intact in right hand Skin: No rashes, warm/dry Venous Dopplers negative Chest x-ray negative 65-year-old female here with right upper extremity periprosthetic humerus fracture, here with weakness and lower extremity swelling DVT ruled out with negative Dopplers She is ambulating Pain control with oxycodone Will start bowel regimen with MiraLAX, senna/docusate as no bowel movement in 5 days She reports that her insurance will not cover rehab as she was told. PT evalu ation pending -Most likely will be discharging to home tomorrow with home health
[2020-09-02] MEDS: DOCUSATE SODIUM/SENNA 50/8.6MG TAB PO SCH (18:22)
[2020-09-02] MEDS: POLYETHYLENE (MIRALAX) 17 GM PACK PO SCH (18:23)
--- NOTE | 2020-09-02 18:26 | Electrocardiogram Report ---
Test Reason : Blood Pressure : / mmHG Vent. Rate : 082 BPM Atrial Rate : 082 BPM P-R Int : 148 ms QRS Dur : 090 ms QT Int : 388 ms P-R-T Axes : 035 -02 031 degrees QTc Int : 453 ms Normal sinus rhythm Normal ECG When compared with ECG of 07-AUG-2020 13:42, No significant change was found Confirmed by Dennys Guzman ([id number]) on 09/02/2020 6:25:51 PM Referred By: REFERRED SELF Confirmed By:Brandan Guzman
--- NOTE | 2020-09-03 00:33 | Billing Data ---
Date of Service September 03, 2020 Coding Level of Care Code INT OBSERVATION CARE 70M LVL 3
[2020-09-03] MEDS: ACETAMINOPHEN 500 MG TAB PO SCH ×2 (04:19→11:52)
[2020-09-03] MEDS: HEPARIN SOD 5,000 UNIT/0.5 ML VIAL SQ SCH ×2 (06:07→15:18)
[2020-09-03] MEDS: KETOROLAC TROMETHAMINE 10 MG TABLET PO PRN ×2 (07:16→15:18)
[2020-09-03] MEDS: FLUTICASONE/VILANTEROL 200/25MCG 14 PUFFS/INHALER INH SCH (09:09)
[2020-09-03] MEDS: MULTIVITAMIN TAB PO SCH (09:09)
[2020-09-03] MEDS: METOPROLOL SUCC 25MG EXT REL TAB PO SCH (09:09)
[2020-09-03] MEDS: LOSARTAN POTASSIUM 50 MG TAB PO SCH (09:09)
[2020-09-03] MEDS: ESCITALOPRAM OXALATE 20 MG TAB PO SCH (09:09)
[2020-09-03] MEDS: DOCUSATE SODIUM/SENNA 50/8.6MG TAB PO SCH (09:09)
[2020-09-03] MEDS: FUROSEMIDE 20 MG TAB PO SCH (09:09)
[2020-09-03] MEDS: PRAVASTATIN SOD 40 MG TAB PO SCH (09:10)
[2020-09-03] MEDS: PANTOprazole 40 MG TAB PO SCH (09:10)
[2020-09-03] MEDS: POLYETHYLENE (MIRALAX) 17 GM PACK PO SCH (09:10)
--- NOTE | 2020-09-03 12:07 | Discharge Summary ---
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 Was evaluated on 08/31 for right shoulder pain following a fall that day, found to have a periprosthetic fracture. Of note, patient recently underwent right shoulder replacement surgery on 08/[address] Gonzalez. Since 08/31 patient reports that she has been getting more and more weak and having difficulty lifting her a michael overhead or performing daily tasks without assistance. She has not endorsed any worsening shortness of breath or chest pain, abdominal pain, nausea or vomiting. She does endorse some increased bilateral lower extremity swelling. This weakness that she feels does not seem to be isolated to a specific side. She has not been eating terribly well since her discharge, but does report being hungry now. ER evaluation today showed stable vital signs without hypoxia on room air, lab work which showed a mild anemia to 11.5 (down one-point from 1 month ago prior to surgery), mildly elevated BUN/creatinine ratio, mildly elevated CK to 263. Venous Doppler performed, stat read report no evidence of DVT. Principal Diagnosis Right periprosthetic humerus fracture, generalized weakness, leg swelling Discharge Exam Constitutional WD/WN, vitals as above Eyes + anicteric sclerae ENMT external ear and nose normal, oropharynx normal Neck trachea midline, no thyromegaly Respiratory normal respiratory effort, lungs clear to auscultation Cardiovascular RRR, no murmur, no edema Chest (Breasts) Chest: normal inspection of chest Gastrointestinal (Abdomen) normal bowel sounds, soft, nontender, no hepatosplenomegaly Musculoskeletal Extremities: + extremities abnormal to inspection (RUE in sling), no cyanosis and no clubbing Skin no rashes, warm and dry Neurologic moves all extremities and awake; no focal motor deficits Psychiatric A+Ox3, euthymic affect Lymphatic no lymphedema Discharge Data Allergies Allergy/AdvReac Type Severity Reaction Status Date / Time No Known Allergies Allergy Unknown Verified 09/02/20 00:46 Consultations 09/02/20 02:44 ED Decision to Admit Stat 09/02/20 04:43 Consult Orthopedic Surgery Routine Ordered Studies 09/02/20 00:15 US venous doppler LE BI Urgent Hospital Course (1) Periprosthetic fracture around internal prosthetic right shoulder joint: (2) Acid reflux disease: (3) Hyperlipidemia: (4) Depression with anxiety: (5) Obstructive sleep apnea: (6) Asthma: (7) Hypertension: Patient reports her pain is present but is fairly well controlled with oxycodone. She mostly reports that she came into the hospital because her legs were swollen and she was worried that she had a blood clot. She is able to ambulate around her room and with PT since admission and feels fine. She is urinating but had not moved her bowels in 5 days but then did on day of discharge after laxatives. She denies chest pains or shortness of breath. No nausea or vomiting. She is eating and drinking. She was seen by orthopedics here and that consultation was reviewed-recommends discharge from orthopedic standpoint and to remain with right upper extremity in sling x6 weeks. She is able to do hand, wrist, and elbow exercises but he wants a limited range of motion of the shoulder at this point and to follow-up with orthopedics in the office in 2 weeks for suture removal. Venous Dopplers negative Chest x-ray negative 65-year-old female here with right upper extremity periprosthetic humerus fracture, here with weakness and lower extremity swelling DVT ruled out with negative Dopplers She is ambulating Pain control with oxycodone continue bowel regimen with MiraLAX, senna/docusate as no bowel movement in 5 days discharge to home with home health Total Time Total Time Spent Total Time Spent (In Minutes): 35min Discharge Plan Discharge Items Patient Disposition: Home - Home Health Services Reason For Visit: PERIPROSTHETIC FRACTURE Discharge Diagnosis: Right humerus periprosthetic fracture Condition on Discharge: Fair Activity: As commented below Lifting Comment: No lifting with right arm Bathing: Keep incision dry Exercise/Sports: Gradually increase as tolerated Exercise Comment: can use right hand,wrist,fingers but not arm Weightbearing Comment: Keep right arm in sling x 6 weeks Non-emergency contact: Primary Care Provider and Surgeon Call non-emergency contact if: you have any medication questions, your symptoms worsen and your pain is not controlled Follow-up/Referrals: July Willard MD [Primary Care Provider] - 09/12/20 10:00 am (Follow up within 1-2 weeks.) Seb Gonzalez, [Physician] - 09/15/20 1:10 pm Diet: Heart Healthy Addtl Attending Provider Instructions: You can continue to take oxycodone as needed for pain as well as Tylenol. Please take Miralax or a stool softener to prevent constipation. Home health has been arranged for you to do physical therapy at home. Follow up with Dr. Gonzalez as scheduled and with your PCP. Pending Studies at Discharge: No Stand-Alone Forms: [facility], Smoking Cessation Medications and DC Order Prescriptions: New polyethylene glycol 3350 [Miralax] 17 gram Powder In Packet 17 g PO DAILY Qty: 14 RF: 0 aspirin [Aspirin Low Dose] 81 mg tablet,delayed release (DR/EC) 81 mg PO BID 14 Days Qty: 28 RF: 0 Continued escitalopram oxalate [Lexapro] 20 mg tablet 20 mg PO QAM Qty: 90 RF: 3 albuterol sulfate [ProAir HFA] 90 mcg/actuation HFA aerosol inhaler 2 puff INHALATION BID PRN (Reason: Shortness Of Breath Or Wheezing) Qty: 18 RF: 5 losartan 50 mg tablet 50 mg PO QAM Qty: 90 RF: 1 furosemide [Lasix] 20 mg tablet 20 mg PO QAM Qty: 90 RF: 1 multivitamin Tablet 1 tab PO QAM RF: 0 pravastatin 40 mg tablet 40 mg PO QAM RF: 0 omeprazole 20 mg capsule,delayed release(DR/EC) 20 mg PO QAM RF: 0 metoprolol succinate 25 mg tablet extended release 24 hr 25 mg PO QAM RF: 0 fluticasone propion-salmeterol [Advair Diskus] 250-50 mcg/dose blister with device 1 inh inhalation Q12H RF: 0 oxycodone 5 mg Tablet 5 mg PO Q4H PRN (Reason: pain) Qty: 10 RF: 0 Changed acetaminophen [Tylenol Extra Strength] 500 mg tablet 1,000 mg PO TID PRN (Reason: Pain) Qty: 30 RF: 2 Discharge Orders: Discharge Order (Routine); Ordered 09/03/20 Ordered By: Concha Presley Admission Data Admit Date/Time: 09/02/20 03:06 Attending Provider: Concha Presley Admit Provider: Rhiannon Larson Primary Care Provider: July Willard Other Providers: Bobby Taveras ; Seb Gonzalez ; [facility],Home Healthcare Coding Level of Care Code 61876 OBS Care - Discharge Diagnoses Periprosthetic fracture around internal prosthetic right shoulder joint M97.31XA Encounter type: initial encounter Acid reflux disease K21.9 Esophagitis presence: without esophagitis Hyperlipidemia E78.5 Hyperlipidemia type: unspecified Depression with anxiety F41.8 Obstructive sleep apnea G47.33 Asthma J45.909 Asthma complication type: uncomplicated Asthma persistence: unspecified Asthma severity: unspecified severity Hypertension I10 Hypertension type: primary hypertension
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
== END 2020-09-03 19:01 | disposition home health service (06) ==
LOC: 3E 22:55 → ED 22:55 → SUATTDRO 09-02 03:06 → 3E 09-02 03:45

== ENCOUNTER 2023-08-15 06:29 | Inpatient (IN) ==
--- NOTE | 2023-08-15 07:30 | Emergency Department Note ---
ED Provider Note History of Present Illness Chief Complaint: Animal Bite Stated Complaint: DOG BITE TUESDAY, WORRIED ABOUT INFECTION Time Seen by Provider: 08/15/23 07:02 68-year-old female presents to the emergency department with concerns about her right leg after a dog bite on Tuesday. Patient reports that her dog bit her leg on Tuesday and since then it has gotten progressively more painful and reddened. Patient reports that her dog is vaccinated. Patient's right leg is warm to touch, reddened, and painful. Home Medications Medication Instructions Recorded Confirmed Type multivitamin 1 tab PO QAM 07/25/20 08/15/23 History ferrous sulfate 325 mg (65 mg 325 mg PO QAM 04/21/21 08/15/23 History iron) tablet (iron) polyethylene glycol 3350 17 gram 17 g PO DAILY PRN prn 04/21/21 08/15/23 History oral powder packet (Miralax) aspirin 81 mg tablet 81 mg PO BID 04/26/22 08/15/23 History albuterol sulfate 90 mcg/actuation 2 puff inhalation BID PRN 12/06/22 08/15/23 Rx aerosol inhaler (ProAir HFA) Shortness Of Breath Or Wheezing #18 grams lorazepam 0.5 mg tablet 0.5 mg PO UD PRN anxiety 12/09/22 08/15/23 History losartan 50 mg tablet 50 mg PO QAM #90 tabs 05/02/23 08/15/23 Rx escitalopram oxalate 20 mg tablet 20 mg PO QAM #90 tabs 06/20/23 08/15/23 Rx (Lexapro) furosemide 20 mg tablet (Lasix) 20 mg PO QAM #90 tabs 06/20/23 08/15/23 Rx metoprolol succinate 25 mg 25 mg PO QAM #90 tabs 06/20/23 08/15/23 Rx tablet,extended release 24 hr omeprazole 20 mg capsule,delayed 20 mg PO QAM #90 caps 06/20/23 08/15/23 Rx release rosuvastatin 40 mg tablet 40 mg PO DAILY #90 tabs 06/21/23 08/15/23 Rx fluticasone 250 mcg-salmeterol 50 1 inh inhalation Q12H #60 ea 07/29/23 08/15/23 Rx mcg/dose blistr powdr for inhalation (Advair Diskus) propranolol 40 mg tablet 40 mg PO BID #180 tabs 07/29/23 08/15/23 Rx Allergies Allergy/AdvReac Type Severity Reaction Status Date / Time No Known Allergies Allergy Unknown Verified 06/21/23 09:20 Past Med/Surg History Problem List Cellulitis (Acute) Essential tremor S/P carpal tunnel release Encounter for pre-operative examination Vitamin D deficiency Urge and stress incontinence Restless legs syndrome Osteopenia Obesity Menopause Memory loss Hypersomnia Edema Diverticulosis of colon Cystocele, midline Allergic rhinitis Acid reflux disease (Chronic) Abnormal thyroid function test ACC/AHA stage C congestive heart failure (Chronic) Hyperlipidemia (Chronic) Routine health maintenance (Chronic) Status post reverse total replacement of right shoulder (~08/2020) Unable to care for self (Acute) Weakness generalized (Acute) Mora-prosthetic fracture around prosthetic joint (Acute) Encounter for examination following treatment at hospital Anxiety Osteoarthritis of knees, bilateral Chest pressure Antiplatelet or antithrombotic long-term use Bilateral swelling of feet and ankles Neck pain without injury Osteoarthritis of left shoulder Palpitations Carpal tunnel syndrome of right wrist Degenerative disc disease, cervical PVC (premature ventricular contraction) Normal stress echocardiogram Normal left ventricular systolic function Hyperlipidemia Chronic diastolic (congestive) heart failure Follows with PCP, on Lasix daily, low Na+ diet. Euvolemic on exam. Depression with anxiety (Chronic) Obstructive sleep apnea NO DEVICE Asthma (Chronic) Advair daily and albuterol a few times per day Hypertension (Chronic) Medical History Premature ventricular contraction follows with Dr Marrufo last seen 05/2022 Atypical chest pain Seen by [facility] cardiology 2022 for this. At the time reported chest discomfort at random but most often during times of increased emotional stress. EKG normal sinus with no acute STT wave abnormality. Also had work-up for this in 2017 with normal DSE. Per cardiology can follow-up as needed but no further cardiovascular testing or intervention recommended. Patient denies any recent chest pain at [facility]. GERD (gastroesophageal reflux disease) SOB (shortness of breath) on exertion with climbing stairs Venous thromboembolism (~2009) DVT/PE. No longer on anticoagulation. Surgical History History of arthroscopic procedure on shoulder right 2020 History of hand surgery MASS REMOVAL FROM FINGER History of oral surgery REMOVAL GROWTH UNDER TONGUE History of colonoscopy History of carpal tunnel surgery LEFT S/P tonsillectomy Family History Grandmother Breast cancer Father Diabetes Heart disease Myocardial infarction Grandfather Diabetes Stroke Brother Myocardial infarction Uncle Family hx of colon cancer Denies family history of Ovarian cancer Prostate cancer Lung cancer Colorectal cancer Hypertension Social History Smoking Status: Former smoker Tobacco Type: Cigarettes Cigarettes Per Day: Couple per day, quit 8 years ago; Second Hand Exposure: No; Do You Dip or Chew Tobacco: No; Hx Alcohol Use: Yes Alcohol type: beer Alcohol Intake Frequency: Monthly or Less Hx Substance Use: No Preferred Language: Armenian Communication Ability: Effective Visual Impairment: Limited Hearing Ability: Normal 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 Beliefs That Will Affect Care: None marital status: Current Living Situation: Spouse Current Living Situation Comment: Rad current occupational status: retired How many Children do You have: 2 Feels Safe at Home: Yes Childhood Exposure to Second-Hand Smoke: No Diet: regular caffeine: Yes (coffee) during the past year weight has: remained stable Dental Care, Regularly: No Physical Activity Frequency: 1-2 Times per Week Seatbelt Use: always Sunscreen Use: No Assistive Devices: Cane and Glasses Physical Exam Vital Signs Vital Signs - 24 hr 08/15/23 06:38 08/15/23 08:38 08/15/23 08:39 Temperature 38.7 C H Temperature Source Oral Pulse Rate 108 H Pulse Rate [Left Finger] 108 H Pulse Rhythm [Left Finger] Regular Pulse Strength [Left Finger] Normal Respiratory Rate 20 Respiratory Effort / Characteristics Non-Labored Spontaneous Respiratory Depth Normal Respiratory Pattern Regular Blood Pressure 119/87 Blood Pressure [Right Arm] 103/82 Blood Pressure Mean 97 Blood Pressure Mean [Right Arm] 89 Blood Pressure Position [Right Arm] Sitting Pulse Oximetry 87 L 87 L Oxygen Delivery Method Room Air Nasal Cannula Oxygen Flow Rate 0 Sepsis Recent Fever Within 48 Hours No Sepsis New/Unexplained Change in Mental Status No Sepsis Action Taken by Nursing No Action Required Oxygen Flow Rate - Titration 2 Pulse Oximetry Post Tiitration 92 08/15/23 10:00 Temperature 37.6 C H Temperature Source Oral Pulse Rate Pulse Rate [Left Finger] 100 H Pulse Rhythm [Left Finger] Pulse Strength [Left Finger] Respiratory Rate 18 Respiratory Effort / Characteristics Non-Labored Spontaneous Respiratory Depth Normal Respiratory Pattern Regular Blood Pressure Blood Pressure [Right Arm] 118/83 Blood Pressure Mean Blood Pressure Mean [Right Arm] 94 Blood Pressure Position [Right Arm] Semi-fowlers Pulse Oximetry 94 Oxygen Delivery Method Nasal Cannula Oxygen Flow Rate 1 Sepsis Recent Fever Within 48 Hours Sepsis New/Unexplained Change in Mental Status Sepsis Action Taken by Nursing Oxygen Flow Rate - Titration Pulse Oximetry Post Tiitration PHYSICAL EXAM: Vital Signs reviewed, see Nurse's notes, vital signs stable. GENERAL: 68-year-old female, awake, alert, well appearing, no acute distress. MUSCULOSKELETAL: Examination of the right lower extremity reveals a puncture type of wound. There is moderate swelling on inspection. Palpation of the right lower extremity reveals mild tenderness. Significant redness and warmth noted. Distal pulses intact. SKIN: No signs of infection. NEURO: No sensory or motor deficits noted over all dermatomes and myotomes tested. Course Course I examined the patient. The patient presented with an isolated bite wound as described as above. By the history, there is no concern for rabies exposure. Signs of infection on exam as noted above. Tetanus booster was given. Lab work, fluids and antibiotic was ordered. 07:55-Nursing staff gave patient the oral Tylenol, patient threw it back up immediately and was too nauseous to tolerate anything by mouth at this time. IV Ofirmev and Zofran were ordered. 08:45-patient reevaluated, reports that she is feeling much better. Denies nausea at this time. 10:10-patient's vitals were reevaluated by nursing staff. Patient still presents tachycardic and febrile. Discussed admission with patient, patient is agreeable and verbalized understanding. [facility]ist consulted for admission. 10:39-I spoke with [facility]ist who accepted the patient for admission. Patient was made aware and verbalized understanding. Please see inpatient documentation for further intervention and care. Administered Medications Aspirin (Aspirin 81 Mg Ectab) 81 mg PO BID [facility] Stop: 09/14/23 10:59 Last Admin: 08/15/23 11:57 Dose: 81 mg Documented By: YAW Enoxaparin Sodium (Enoxaparin Inj 40 Mg/0.4 Ml Syr) 40 mg SQ QAM [facility] Stop: 09/14/23 11:14 Last Admin: 08/15/23 11:58 Dose: 40 mg Documented By: YAW Ampicillin Sodium/Sulbactam Sodium 3,000 mg/ Sodium Chloride 100 mls @ 200 mls/hr IV Q6H [facility] Stop: 08/22/23 13:59 Last Infusion: 08/15/23 16:29 Dose: Infused Documented By: Admin: 08/15/23 15:47 Dose: 200 mls/hr Documented By: CHALO Pantoprazole Sodium (Pantoprazole 40 Mg Tab) 40 mg PO BID [facility] Stop: 09/14/23 10:44 Last Admin: 08/15/23 11:58 Dose: 40 mg Documented By: YAW Discontinued Medications Acetaminophen (Acetaminophen 500 Mg Tab) 1,000 mg PO NOW STA Stop: 08/15/23 07:16 Last Admin: 08/15/23 07:49 Dose: 1,000 mg Documented By: CHINMAY Diphtheria/Pertussis/Tetanus Vacc (Diphther/Tetan/Pertus Vaccine (Tdap, Adol/Adult) 0.5ml) 0.5 ml IM .ONCE ONE Stop: 08/15/23 07:16 Last Admin: 08/15/23 07:49 Dose: 0.5 ml Documented By: CHINMAY Sodium Chloride (Nss) 1,000 mls @ 500 mls/hr IV .Q2H [facility] Stop: 08/15/23 08:32 Last Infusion: 08/15/23 10:52 Dose: Infused Documented By: Admin: 08/15/23 08:06 Dose: 500 mls/hr Documented By: CHINMAY Ampicillin Sodium/Sulbactam Sodium 3,000 mg/ Sodium Chloride 100 mls @ 200 mls/hr IV NOW STA Stop: 08/15/23 07:44 Last Infusion: 08/15/23 09:28 Dose: Infused Documented By: Admin: 08/15/23 08:07 Dose: 200 mls/hr Documented By: CHINMAY Acetaminophen (Ofirmev) 1,000 mg in 100 mls @ 400 mls/hr IV NOW STA Stop: 08/15/23 08:10 Last Infusion: 08/15/23 08:22 Dose: Infused Documented By: Admin: 08/15/23 08:07 Dose: 400 mls/hr Documented By: CHINMAY Ondansetron HCl (Ondansetron Inj 2 Mg/Ml 2 Ml Vial) 4 mg IV NOW STA Stop: 08/15/23 07:57 Last Admin: 08/15/23 08:07 Dose: 4 mg Documented By: CHINMAY Medical Decision Making Differential Diagnosis Dog bite, cellulitis, soft tissue injury, puncture wound Medical Records Attestation: I reviewed the patient's medical records. Home Medications was personally reviewed by me Laboratory Data 08/15/23 07:30 08/15/23 07:30 Lab Results 08/15/23 Range/Units 07:30 WBC 15.04 H (4.8-10.8) K/ul RBC 4.26 (4.20-5.40) M/uL Hgb 12.3 (12.0-16.0) g/dl Hct 38.2 (37.0-47.0) % MCV 89.7 (80.0-100.0) fL MCH 28.9 (25.0-34.0) pg MCHC 32.2 (32.0-36.0) g/dL RDW Std Deviation 46.4 H (36.4-46.3) fL RDW Coeff of Cristian 14.2 (11.5-14.5) % Plt Count 207 (130-400) K/uL MPV 9.6 (9.4-12.4) fL Immature Gran % (Auto) 0.6 % Neut % (Auto) 90.3 % Lymph % (Auto) 4.5 % [place] % (Auto) 4.3 % Eos % (Auto) 0.1 % Baso % (Auto) 0.2 % Neut # (Auto) 13.59 H (1.40-6.50) K/uL Lymph # (Auto) 0.67 L (1.20-3.40) K/uL [place] # (Auto) 0.65 H (0.11-0.59) K/uL Eos # (Auto) 0.01 (0.00-0.50) K/uL Baso # (Auto) 0.03 (0.00-0.20) K/uL Immature Gran # (Auto) 0.09 (0.01-0.20) K/uL RBC Morphology Unremarkable Sodium 141 (136-145) mmol/L Potassium 3.9 (3.5-5.1) mmol/L Chloride 105 (98-107) mmol/L Carbon Dioxide 30 (21-32) mmol/L Anion Gap 6 (3-11) BUN 19 (6-23) mg/dl Creatinine 0.88 (0.6-1.2) mg/dl Est Cr Clr Drug Dosing Not Reportable Est GFR ( Amer) 77.2 ml/min Est GFR (Non-Af Amer) 66.6 ml/min BUN/Creatinine Ratio 21.6 H (10-20) Glucose 116 H (70-99(Fasting)) mg/dl Lactate 1.0 (0.4-2.0) mmol/L Calcium 9.2 (8.6-10.3) mg/dl Total Bilirubin 0.5 (0.2-1.0) mg/dl AST 12 L (13-39) U/L ALT 12 (7-52) U/L Alkaline Phosphatase 50 (34-104) U/L Total Protein 6.6 (6.0-8.3) gm/dl Albumin 4.1 (3.4-5.0) gm/dl Globulin 2.5 (2.5-4.0) gm/dl Albumin/Globulin Ratio 1.6 (0.9-2) Procalcitonin 0.10 (0-0.5) ng/ml Imaging Data Radiologist's Impression: Chest X-Ray 08/15/23 09:12 SINGLE VIEW CHEST CLINICAL HISTORY: Hypoxia FINDINGS: An AP, portable, upright chest radiograph is compared to study dated 09/02/2020. Correlation is made with chest CT dated 02/16/2010. The examination is degraded by portable technique and apical lordotic positioning. The heart is mildly enlarged noting atherosclerotic calcification of the thoracic aorta. The pulmonary vasculature is noncongested. Chronic interstitial thickening is similar to previous. Scarring/atelectasis is noted at the lung bases. The lungs and pleural spaces are otherwise clear. No pneumothorax is seen. The bony thorax is grossly intact. A right shoulder arthroplasty is in place. Advanced arthritic change is seen in the left shoulder with flattening/deformity of the left humeral head. IMPRESSION: Cardiomegaly with no acute cardiopulmonary abnormality identified. ACT 112: Negative or not required by law. Electronically signed by: Sukumar Valenzuela M.D. 08/15/2023 10:23 AM MDM Narrative 68-year-old female presents to the emergency department with complaints of right leg swelling, redness, and pain after a dog bite on Tuesday. Moderate symptoms of infection were noted on exam. Patient also presented tachycardic and febrile. Patient was ordered lab work, fluids, and antibiotics. After administration of antibiotics, fluids, and antipyretics patient continues to be febrile and tachycardic. Patient had an elevated white blood cell count as well as pulse rate in the 100s and has required use of oxygen via nasal cannula while in the emergency department. Because of these findings and lab results patient is to be admitted to the hospitalist team as an inpatient. Impression Cellulitis Discharge Plan Visit Data Chief Complaint: Animal Bite Stated Complaint: DOG BITE TUESDAY, WORRIED ABOUT INFECTION ED Provider: Ronn Christine ED Midlevel Provider: Prema Schwartz Discharge Problem: Cellulitis Patient Disposition: Admitted As Inpatient Discharge Instructions Interventions: ED Discharge Assessment Last Done: 08/15/23 12:38 Discharge Problem: Cellulitis Qualifiers: Site of cellulitis: extremity Site of cellulitis of extremity: lower extremity Laterality: left Qualified Code(s): L03.116 - Cellulitis of left lower limb
--- NOTE | 2023-08-15 07:42 | Emergency Department Note ---
ED Visit Note I was consulted by the Advanced Practice Provider, JAKE Reese. I personally made/approved the management plan and take responsibility for the patient management. I performed a substantive portion of the visit. This includes the aspects of: -History/Physical/Personally seeing the patient -MDM .
[2023-08-15] MEDS: ACETAMINOPHEN 500 MG TAB PO STA (07:49)
[2023-08-15] MEDS: DIPHTHER/TETAN/PERTUS Vaccine (Tdap, Adol/Adult) 0.5mL IM ONE (07:49)
[2023-08-15 07:57] LABS: Hematocrit (blood only) 38.2 % (37.0-47.0); Hemoglobin 12.3 g/dl (12.0-16.0); Mean Corpuscular Hemoglobin 28.9 pg (25.0-34.0); Mean Corpuscular Hgb Conc 32.2 g/dL (32.0-36.0); Mean Corpuscular Volume 89.7 fL (80.0-100.0); Mean Platelet Volume 9.6 fL (9.4-12.4); Platelet Count 207 K/uL (130-400); RDW Coefficient of Variation 14.2 % (11.5-14.5); RDW Standard Deviation 46.4 fL (36.4-46.3); Red Blood Count 4.26 M/uL (4.20-5.40); White Blood Count 15.04 K/ul (4.8-10.8)
[2023-08-15] MEDS: SODIUM CHLORIDE 0.9% 1,000 ML IV SCH (08:06)
[2023-08-15] MEDS: ACETAMINOPHEN 1,000 MG/100 ML VIAL IV STA (08:07)
[2023-08-15] MEDS: AMPICILLIN/SULBACTAM SOD 3,000 MG in SODIUM CHLOR 0.9% MINI-B 100 ML IV STA (08:07)
[2023-08-15] MEDS: ONDANSETRON INJ 2 MG/ML 2 ML VIAL IV STA (08:07)
[2023-08-15 08:08] LABS: Alanine Aminotransferase 12 U/L (7-52); Albumin Globulin Ratio 1.6 (0.9-2); Albumin Level 4.1 gm/dl (3.4-5.0); Alkaline Phosphatase 50 U/L (34-104); Anion Gap 6 (3-11); Aspartate Aminotransferase 12 U/L (13-39); BUN Creatinine Ratio 21.6 (10-20); Bilirubin,Total 0.5 mg/dl (0.2-1.0); Blood Urea Nitrogen 19 mg/dl (6-23); Calcium 9.2 mg/dl (8.6-10.3); Carbon Dioxide 30 mmol/L (21-32); Chloride 105 mmol/L (98-107); Est GFR (African American) 77.2 ml/min; Est GFR (Non-African American) 66.6 ml/min; Globulin 2.5 gm/dl (2.5-4.0); Glucose 116 mg/dl (70-99(Fasting)); Potassium 3.9 mmol/L (3.5-5.1); Sodium 141 mmol/L (136-145); Total Protein 6.6 gm/dl (6.0-8.3)
[2023-08-15 08:29] LABS: Basophils # (auto) 0.03 K/uL (0.00-0.20); Basophils % (auto) 0.2 %; Eosinophils # (auto) 0.01 K/uL (0.00-0.50); Eosinophils % (auto) 0.1 %; Immature Granulocytes # (auto) 0.09 K/uL (0.01-0.20); Immature Granulocytes % (auto) 0.6 %; Lymphocytes # (auto) 0.67 K/uL (1.20-3.40); Lymphocytes % (auto) 4.5 %; Monocytes # (auto) 0.65 K/uL (0.11-0.59); Monocytes % (auto) 4.3 %; Neutrophils # (auto) 13.59 K/uL (1.40-6.50); Neutrophils % (auto) 90.3 %; RBC Morphology Unremarkable
--- NOTE | 2023-08-15 10:25 | XRay Report ---
SINGLE VIEW CHEST CLINICAL HISTORY: Hypoxia FINDINGS: An AP, portable, upright chest radiograph is compared to study dated 09/02/2020. Correlation is made with chest CT dated 02/16/2010. The examination is degraded by portable technique and apical lordotic positioning. The heart is mildly enlarged noting atherosclerotic calcification of the thora cic aorta. The pulmonary vasculature is noncongested. Chronic interstitial thickening is similar to p revious. Scarring/atelectasis is noted at the lung bases. The lungs and pleural spaces are otherwise clear. No pneumothorax is seen. The bony thorax is grossly intact. A right shoulder arthroplasty is i n place. Advanced arthritic change is seen in the left shoulder with flattening/deformity of the left humeral head. IMPRESSION: Cardiomegaly with no acute cardiopulmonary abnormality identified. ACT 112: Negative or not required by law. Electronically signed by: Sukumar Valenzuela M.D. 08/15/2023 10:23 AM
--- NOTE | 2023-08-15 10:47 | History & Physical Report ---
Date of Service August 15, 2023 Assessment & Plan (1) Cellulitis: Plan: Lower leg extremity cellulitis in a 68 yo female who sustained a dog bite. Dog is updated with vaccines and is the patient's pet. Will place on IV antibiotics. PAtient will be admitted with sepsis/ WBC, HR above 90. will consult wound care. (2) Hyperlipidemia: Plan: resume home meds (3) Chronic diastolic (congestive) heart failure: Plan: resume home. Patient appears euvolemic. (4) Asthma: Plan: stable (5) Hypertension: Plan: resume metoprolol History of Present Illness Chief Complaint: dog bite Primary Care Provider: July Willard MD 68 yo reports to the ED with a dog bite. Patient reports the incident occured this past weekend. Her dog bit her leg. She noticed that over the course ot the next 2 days, patient has noticed more swelling and pain in her leg. Allergies Allergy/AdvReac Type Severity Reaction Status Date / Time No Known Allergies Allergy Unknown Verified 06/21/23 09:20 Home Medications Medication Instructions Recorded Confirmed Type multivitamin 1 tab PO QAM 07/25/20 08/15/23 History ferrous sulfate 325 mg (65 mg 325 mg PO QAM 04/21/21 08/15/23 History iron) tablet (iron) polyethylene glycol 3350 17 gram 17 g PO DAILY PRN prn 04/21/21 08/15/23 History oral powder packet (Miralax) aspirin 81 mg tablet 81 mg PO BID 04/26/22 08/15/23 History albuterol sulfate 90 mcg/actuation 2 puff inhalation BID PRN 12/06/22 08/15/23 Rx aerosol inhaler (ProAir HFA) Shortness Of Breath Or Wheezing #18 grams lorazepam 0.5 mg tablet 0.5 mg PO UD PRN anxiety 12/09/22 08/15/23 History losartan 50 mg tablet 50 mg PO QAM #90 tabs 05/02/23 08/15/23 Rx escitalopram oxalate 20 mg tablet 20 mg PO QAM #90 tabs 06/20/23 08/15/23 Rx (Lexapro) furosemide 20 mg tablet (Lasix) 20 mg PO QAM #90 tabs 06/20/23 08/15/23 Rx metoprolol succinate 25 mg 25 mg PO QAM #90 tabs 06/20/23 08/15/23 Rx tablet,extended release 24 hr omeprazole 20 mg capsule,delayed 20 mg PO QAM #90 caps 06/20/23 08/15/23 Rx release rosuvastatin 40 mg tablet 40 mg PO DAILY #90 tabs 06/21/23 08/15/23 Rx fluticasone 250 mcg-salmeterol 50 1 inh inhalation Q12H #60 ea 07/29/23 08/15/23 Rx mcg/dose blistr powdr for inhalation (Advair Diskus) propranolol 40 mg tablet 40 mg PO BID #180 tabs 07/29/23 08/15/23 Rx Past Med/Surg History Problem List Cellulitis (Acute) Essential tremor S/P carpal tunnel release Encounter for pre-operative examination Vitamin D deficiency Urge and stress incontinence Restless legs syndrome Osteopenia Obesity Menopause Memory loss Hypersomnia Edema Diverticulosis of colon Cystocele, midline Allergic rhinitis Acid reflux disease (Chronic) Abnormal thyroid function test ACC/AHA stage C congestive heart failure (Chronic) Hyperlipidemia (Chronic) Routine health maintenance (Chronic) Status post reverse total replacement of right shoulder (~08/2020) Unable to care for self (Acute) Weakness generalized (Acute) Mora-prosthetic fracture around prosthetic joint (Acute) Encounter for examination following treatment at hospital Anxiety Osteoarthritis of knees, bilateral Chest pressure Antiplatelet or antithrombotic long-term use Bilateral swelling of feet and ankles Neck pain without injury Osteoarthritis of left shoulder Palpitations Carpal tunnel syndrome of right wrist Degenerative disc disease, cervical PVC (premature ventricular contraction) Normal stress echocardiogram Normal left ventricular systolic function Hyperlipidemia Chronic diastolic (congestive) heart failure Follows with PCP, on Lasix daily, low Na+ diet. Euvolemic on exam. Depression with anxiety (Chronic) Obstructive sleep apnea NO DEVICE Asthma (Chronic) Advair daily and albuterol a few times per day Hypertension (Chronic) Medical History Premature ventricular contraction follows with Dr Marrufo last seen 05/2022 Atypical chest pain Seen by [facility] cardiology 2022 for this. At the time reported chest discomfort at random but most often during times of increased emotional stress. EKG normal sinus with no acute STT wave abnormality. Also had work-up for this in 2017 with normal DSE. Per cardiology can follow-up as needed but no further cardiovascular testing or intervention recommended. Patient denies any recent chest pain at PAT. GERD (gastroesophageal reflux disease) SOB (shortness of breath) on exertion with climbing stairs Venous thromboembolism (~2009) DVT/PE. No longer on anticoagulation. Surgical History History of arthroscopic procedure on shoulder right 2020 History of hand surgery MASS REMOVAL FROM FINGER History of oral surgery REMOVAL GROWTH UNDER TONGUE History of colonoscopy History of carpal tunnel surgery LEFT S/P tonsillectomy Family History Grandmother Breast cancer Father Diabetes Heart disease Myocardial infarction Grandfather Diabetes Stroke Brother Myocardial infarction Uncle Family hx of colon cancer Denies family history of Ovarian cancer Prostate cancer Lung cancer Colorectal cancer Hypertension Social History Smoking Status: Former smoker Tobacco Type: Cigarettes Cigarettes Per Day: Couple per day, quit 8 years ago; Smoking End Date: 2013; Second Hand Exposure: No; Do You Dip or Chew Tobacco: No; Hx Alcohol Use: No Hx Substance Use: No Preferred Language: [place] Communication Ability: Effective Visual Impairment: Limited Hearing Ability: Normal Cloud Developer Required: No Beliefs That Will Affect Care: None marital status: Current Living Situation: Spouse Current Living Situation Comment: Rad current occupational status: retired How many Children do You have: 2 Other Information That Helps Us Care for You: No Feels Safe at Home: Yes Safety Concerns: Feels Safe At This Time Childhood Exposure to Second-Hand Smoke: No Diet: regular caffeine: Yes (coffee) during the past year weight has: remained stable Dental Care, Regularly: No Physical Activity Frequency: 1-2 Times per Week Seatbelt Use: always Sunscreen Use: No Assistive Devices: Cane and Glasses Review of Systems Constitutional: + fever; no body aches Eyes: no blind spots Ear, Nose, Mouth, Throat: no ear pain Respiratory: no cough Cardiovascular: no chest pain Gastrointestinal: no abdominal pain Genitourinary: no dysuria Musculoskeletal: no back pain Integumentary: no acne Neurologic: no gait abnormality Psychiatric: no behavioral changes Endocrine: no fatigue Hematologic / Lymphatic: no easy bleeding Allergy / Immunological: no GI upset with certain foods Physical Exam Constitutional: WD/WN, vitals as above Eyes: PERRL, conjunctivae normal, anicteric sclerae ENMT: external ear and nose normal, oropharynx normal Neck: trachea midline, no thyromegaly Respiratory: normal respiratory effort, lungs clear to auscultation Cardiovascular: RRR, no murmur, no edema Gastrointestinal (Abdomen): normal bowel sounds, soft, nontender, no hepatosplenomegaly Skin: no rashes, warm and dry right lower leg trauma from dog bite. Patient has erythema surrounding the lower extremity. Neurologic: PERRL, EOMI, accommodation nl, no face palsy, no dysarthria Psychiatric: A+Ox3, euthymic affect Lymphatic: no cervical or axillary lymphadenopathy Results & Data Results & Data Vital Signs (Past 12 Hours) Vital Signs Temp Pulse Pulse Resp BP BP Pulse Ox 08/15/23 10:00 37.6 C H 100 H 18 118/83 94 08/15/23 08:39 87 L 08/15/23 08:38 108 H 20 103/82 87 L 08/15/23 06:38 38.7 C H 108 H 119/87 O2 Del Method O2 Flow Rate 08/15/23 10:00 Nasal Cannula 1 08/15/23 08:39 Nasal Cannula 0 08/15/23 08:38 Room Air 08/15/23 06:38 PG Care Time/CCT Total # of Minutes Spent Total Time Spent with Patient: Total time spent is greater than 50% in coordination of care (as documented) at patient's floor/unit and/or counseling patient: Coding Level of Care Code 74541 INT INP/OBS CARE 3/75MIN Diagnoses Cellulitis L03.116 Laterality: left Site of cellulitis: extremity Site of cellulitis of extremity: lower extremity Hyperlipidemia, unspecified hyperlipidemia type E78.5 Hyperlipidemia type: unspecified Chronic diastolic (congestive) heart failure I50.32 Uncomplicated asthma, unspecified asthma severity, unspecified whether persistent J45.909 Asthma complication type: uncomplicated Asthma persistence: unspecified Asthma severity: unspecified severity Primary hypertension I10 Hypertension type: primary hypertension (1) Cellulitis Laterality: left Site of cellulitis: extremity Site of cellulitis of extremity: lower extremity Qualified Code(s): L03.116 - Cellulitis of left lower limb (2) Hyperlipidemia Hyperlipidemia type: unspecified Qualified Code(s): E78.5 - Hyperlipidemia, unspecified (4) Asthma Asthma complication type: uncomplicated Asthma persistence: unspecified Asthma severity: unspecified severity Qualified Code(s): J45.909 - Unspecified asthma, uncomplicated (5) Hypertension Hypertension type: primary hypertension Qualified Code(s): I10 - Essential (primary) hypertension
[2023-08-15] MEDS ORDERED: Patient's HEIGHT &/or WEIGHT Needed SCH (11:00)
[2023-08-15] MEDS: ASPIRIN 81 MG ECTAB PO SCH (11:57)
[2023-08-15] MEDS: ENOXAPARIN INJ 40 MG/0.4 ML SYR SQ SCH (11:58)
[2023-08-15] MEDS: PANTOprazole 40 MG TAB PO SCH (11:58)
[2023-08-15] MEDS ORDERED: AMPICILLIN SOD/SULBACTAM SOD 3 GM VIAL IV SCH (14:00)
[2023-08-15] MEDS: AMPICILLIN/SULBACTAM SOD 3,000 MG in SODIUM CHLOR 0.9% MINI-B 100 ML IV SCH (15:47)
[2023-08-15] MEDS: ACETAMINOPHEN 325 MG TAB PO PRN (21:01)
[2023-08-15] MEDS: LORazepam 0.5 MG TAB PO PRN (21:01)
[2023-08-15] MEDS: MELATONIN 3 MG TAB PO PRN (21:01)
[2023-08-15] MEDS: PROPRANOLOL HCL 20 MG TAB PO SCH (21:01)
[2023-08-16 06:28] LABS: Hematocrit (blood only) 33.4 % (37.0-47.0); Hemoglobin 10.3 g/dl (12.0-16.0); Mean Corpuscular Hemoglobin 28.1 pg (25.0-34.0); Mean Corpuscular Hgb Conc 30.8 g/dL (32.0-36.0); Mean Platelet Volume 9.6 fL (9.4-12.4); Platelet Count 179 K/uL (130-400); RDW Coefficient of Variation 14.5 % (11.5-14.5); RDW Standard Deviation 48.3 fL (36.4-46.3); Red Blood Count 3.67 M/uL (4.20-5.40); White Blood Count 11.09 K/ul (4.8-10.8)
[2023-08-16 06:30] LABS: BUN Creatinine Ratio 16.5 (10-20); C Reactive Protein 22.7 mg/dl (0-0.5); Calcium 8.3 mg/dl (8.6-10.3); Creatinine Clr Calc Pharmacy 68.4 ml/min; Est GFR (African American) 80.5 ml/min; Est GFR (Non-African American) 69.4 ml/min; Potassium 3.9 mmol/L (3.5-5.1)
[2023-08-16] MEDS: ESCITALOPRAM OXALATE 20 MG TAB PO SCH (08:45)
[2023-08-16] MEDS: FERROUS SULFATE 325 MG TAB PO SCH (08:46)
[2023-08-16] MEDS: ROSUVASTATIN CALCIUM 20 MG TAB PO SCH (08:47)
[2023-08-16] MEDS: MULTIVITAMIN TAB PO SCH (08:48)
[2023-08-16] MEDS: METOPROLOL SUCC 25MG EXT REL TAB PO SCH (08:53)
[2023-08-16] MEDS: LOSARTAN POTASSIUM 50 MG TAB PO SCH (08:57)
[2023-08-16] MEDS ORDERED: PNEUMOCOCCAL VACCINE (PCV20) 20-VAL CONJ-DIP CRM/PF 0.5 ML SYR IM ONE (09:00)
[2023-08-16] MEDS: FLUTICASONE/VILANTEROL 200/25MCG 14 PUFFS/INHALER INH SCH (10:22)
[2023-08-16] MEDS: DOCUSATE SODIUM/SENNA 50/8.6MG TAB PO SCH (15:56)
--- NOTE | 2023-08-16 17:28 | Hospitalist Progress Note ---
Date of Service August 16, 2023 Assessment & Plan (1) Cellulitis: Plan: Lower leg extremity cellulitis in a 68 yo female who sustained a dog bite. Dog is updated with vaccines and is the patient's pet. Will place on IV antibiotics. Patient will be admitted with sepsis/ WBC, HR above 90. will consult wound care. continue IV antibiotics on 08/15 (2) Hyperlipidemia: Plan: resume home meds (3) Chronic diastolic (congestive) heart failure: Plan: resume home. Patient appears euvolemic. (4) Asthma: Plan: stable (5) Hypertension: Plan: resume metoprolol Admission and Anticipated Discharge Date Admission Date: August 15, 2023 Subjective 68 yo female reports no new symptoms. Review of Systems Review of Systems: All systems reviewed & are unremarkable except as noted in HPI & below Physical Exam Constitutional: WD/WN, vitals as above Eyes: PERRL, conjunctivae normal, anicteric sclerae ENMT: external ear and nose normal, oropharynx normal Neck: trachea midline, no thyromegaly Respiratory: normal respiratory effort, lungs clear to auscultation Cardiovascular: RRR, no murmur, no edema Gastrointestinal (Abdomen): normal bowel sounds, soft, nontender, no hepatosplenomegaly Skin: erythema noted on right foot and lower leg above and below wound. Neurologic: PERRL, EOMI, accommodation nl, no face palsy, no dysarthria Psychiatric: A+Ox3, euthymic affect Lymphatic: no cervical or axillary lymphadenopathy Results & Data Results & Data Vital Signs (Past 12 Hours) Vital Signs Temp Pulse Pulse Resp BP BP Pulse Ox 08/16/23 16:00 36.6 C 78 18 110/75 93 08/16/23 08:52 82 18 96/61 L 96 08/16/23 07:55 36.8 C 67 18 113/73 91 08/16/23 07:35 O2 Del Method 08/16/23 16:00 Room Air 08/16/23 08:52 Room Air 08/16/23 07:55 Room Air 08/16/23 07:35 Room Air PG Care Time/CCT Total # of Minutes Spent Total Time Spent with Patient: Total time spent is greater than 50% in coordination of care (as documented) at patient's floor/unit and/or counseling patient: Coding Level of Care Code 46015 SUB INP/OBS CARE 2/35MIN Diagnoses Cellulitis L03.116 Laterality: left Site of cellulitis: extremity Site of cellulitis of extremity: lower extremity Hyperlipidemia, unspecified hyperlipidemia type E78.5 Hyperlipidemia type: unspecified Chronic diastolic (congestive) heart failure I50.32 Uncomplicated asthma, unspecified asthma severity, unspecified whether persiste nt J45.909 Asthma complication type: uncomplicated Asthma persistence: unspecified Asthma severity: unspecified severity Primary hypertension I10 Hypertension type: primary hypertension (1) Cellulitis Laterality: left Site of cellulitis: extremity Site of cellulitis of extremity: lower extremity Qualified Code(s): L03.116 - Cellulitis of left lower limb (2) Hyperlipidemia Hyperlipidemia type: unspecified Qualified Code(s): E78.5 - Hyperlipidemia, unspecified (4) Asthma Asthma complication type: uncomplicated Asthma persistence: unspecified Asthma severity: unspecified severity Qualified Code(s): J45.909 - Unspecified asthma, uncomplicated (5) Hypertension Hypertension type: primary hypertension Qualified Code(s): I10 - Essential (primary) hypertension
[2023-08-17 07:51] LABS: Hematocrit (blood only) 31.9 % (37.0-47.0); Mean Corpuscular Hemoglobin 28.2 pg (25.0-34.0); Mean Corpuscular Hgb Conc 31.3 g/dL (32.0-36.0); Mean Corpuscular Volume 90.1 fL (80.0-100.0); Mean Platelet Volume 9.3 fL (9.4-12.4); Platelet Count 161 K/uL (130-400); RDW Coefficient of Variation 13.9 % (11.5-14.5); RDW Standard Deviation 45.5 fL (36.4-46.3); Red Blood Count 3.54 M/uL (4.20-5.40); White Blood Count 4.84 K/ul (4.8-10.8)
[2023-08-17 08:29] LABS: BUN Creatinine Ratio 15.8 (10-20); C Reactive Protein 13.35 mg/dl (0-0.5); Calcium 8.2 mg/dl (8.6-10.3); Creatinine Clr Calc Pharmacy 76.5 ml/min; Est GFR (African American) 92.1 ml/min; Est GFR (Non-African American) 79.5 ml/min; Potassium 3.9 mmol/L (3.5-5.1)
[2023-08-17] MEDS: POLYETHYLENE (MIRALAX) 17 GM PACK PO PRN (13:18)
--- NOTE | 2023-08-17 14:56 | Electrocardiogram Report ---
Test Reason : Blood Pressure : / mmHG Vent. Rate : 084 BPM Atrial Rate : 084 BPM P-R Int : 146 ms QRS Dur : 090 ms QT Int : 388 ms P-R-T Axes : 062 012 010 degrees QTc Int : 458 ms Poor data quality, interpretation may be adversely affected Sinus rhythm with occasional Premature ventricular complexes Otherwise normal ECG When compared with ECG of 02-SEP-2020 01:14, Premature ventricular complexes are now Present Confirmed by Madi Larson ([id number]) on 08/17/2023 2:56:48 PM Referred By: REFERRED SELF Confirmed By:Madi Larson
--- NOTE | 2023-08-17 22:01 | Hospitalist Progress Note ---
Date of Service August 17, 2023 Assessment & Plan (1) Cellulitis: Plan: Lower leg extremity cellulitis in a 68 yo female who sustained a dog bite. Dog is updated with vaccines and is the patient's pet. Will place on IV antibiotics. Patient will be admitted with sepsis/ WBC, HR above 90. will consult wound care. continue IV antibiotics on 08/16 showing improvement. (2) Hyperlipidemia: Plan: resume home meds (3) Chronic diastolic (congestive) heart failure: Plan: resume home. Patient appears euvolemic. (4) Asthma: Plan: stable (5) Hypertension: Plan: resume metoprolol Admission and Anticipated Discharge Date Admission Date: August 15, 2023 Subjective 68 yo female reports no new symptoms. Review of Systems Review of Systems: All systems reviewed & are unremarkable except as noted in HPI & below Physical Exam Constitutional: WD/WN, vitals as above Eyes: PERRL, conjunctivae normal, anicteric sclerae ENMT: external ear and nose normal, oropharynx normal Neck: trachea midline, no thyromegaly Respiratory: normal respiratory effort, lungs clear to auscultation Cardiovascular: RRR, no murmur, no edema Gastrointestinal (Abdomen): normal bowel sounds, soft, nontender, no hepatosplenomegaly Skin: no rashes, warm and dry decreased erythema. Neurologic: PERRL, EOMI, accommodation nl, no face palsy, no dysarthria Psychiatric: A+Ox3, euthymic affect Lymphatic: no cervical or axillary lymphadenopathy Results & Data Results & Data Vital Signs (Past 12 Hours) Vital Signs Temp Pulse Resp BP Pulse Ox O2 Del Method 08/17/23 20:05 36.7 C 93 H 22 134/80 95 Room Air 08/17/23 15:12 36.8 C 74 17 117/76 94 Room Air PG Care Time/CCT Total # of Minutes Spent Total Time Spent with Patient: Total time spent is greater than 50% in coordination of care (as documented) at patient's floor/unit and/or counseling patient: Coding Level of Care Code 63945 SUB INP/OBS CARE 2/35MIN Diagnoses Cellulitis L03.116 Laterality: left Site of cellulitis: extremity Site of cellulitis of extremity: lower extremity Hyperlipidemia, unspecified hyperlipidemia type E78.5 Hyperlipidemia type: unspecified Chronic diastolic (congestive) heart failure I50.32 Uncomplicated asthma, unspecified asthma severity, unspecified whether persistent J45.909 Asthma complication type: uncomplicated Asthma persistence: unspecified Asthma severity: unspecified severity Primary hypertension I10 Hypertension type: primary hypertension (1) Cellulitis Laterality: left Site of cellulitis: extremity Site of cellulitis of extremity: lower extremity Qualified Code(s): L03.116 - Cellulitis of left lower limb (2) Hyperlipidemia Hyperlipidemia type: unspecified Qualified Code(s): E78.5 - Hyperlipidemia, unspecified (4) Asthma Asthma complication type: uncomplicated Asthma persistence: unspecified Asthma severity: unspecified severity Qualified Code(s): J45.909 - Unspecified asthma, uncomplicated (5) Hypertension Hypertension type: primary hypertension Qualified Code(s): I10 - Essential (primary) hypertension
[2023-08-18 07:06] LABS: Hematocrit (blood only) 31.6 % (37.0-47.0); Hemoglobin 10.2 g/dl (12.0-16.0); Mean Corpuscular Hemoglobin 28.7 pg (25.0-34.0); Mean Corpuscular Hgb Conc 32.3 g/dL (32.0-36.0); Mean Platelet Volume 9.6 fL (9.4-12.4); Platelet Count 205 K/uL (130-400); RDW Coefficient of Variation 13.9 % (11.5-14.5); RDW Standard Deviation 45.6 fL (36.4-46.3); Red Blood Count 3.55 M/uL (4.20-5.40); White Blood Count 4.77 K/ul (4.8-10.8)
[2023-08-18 07:24] LABS: BUN Creatinine Ratio 14.5 (10-20); C Reactive Protein 6.53 mg/dl (0-0.5); Calcium 8.4 mg/dl (8.6-10.3); Creatinine Clr Calc Pharmacy 76.5 ml/min; Est GFR (African American) 92.1 ml/min; Est GFR (Non-African American) 79.5 ml/min; Potassium 4.3 mmol/L (3.5-5.1)
[2023-08-18 11:12] LABS: A calco-baum cmplx NotReported Not Detected (NotDetected); Bact fragilis Not Reported Not Detected (NotDetected); Blood Culture Id Panel PCR Panel Negative (NotDetected); C auris Not Reported Not Detected (NotDetected); Calbicans Not Reported Not Detected (NotDetected); Candida glabrata Not Reported Not Detected (NotDetected); Candida krusei Not Reported Not Detected (NotDetected); Cneoformans/gatti Not Reported Not Detected (NotDetected); Cparapsilosis Not Reported Not Detected (NotDetected); E cloacae compx Not Reported Not Detected (NotDetected); Efaecalis Not Reported Not Detected (NotDetected); Efaecium Not Reported Not Detected (NotDetected); Enterobacterales Not Reported Not Detected (NotDetected); Escherichia coli Not Reported Not Detected (NotDetected); H influenzae Not Reported Not Detected (NotDetected); K aerogenes Not Reported Not Detected (NotDetected); Koxytoca Not Reported Not Detected (NotDetected); Kpneumoniae grp Not Reported Not Detected (NotDetected); Lmonocyt Not Reported Not Detected (NotDetected); N meningitidis Not Reported Not Detected (NotDetected); P aeruginosa Not Reported Not Detected (NotDetected); Proteus spp Not Reported Not Detected (NotDetected); Salmonella spp Not Reported Not Detected (NotDetected); Staph lugdunensis Not Reported Not Detected (NotDetected); Staph spp. Not Reported Not Detected (NotDetected); Staphaureus Not Reported Not Detected (NotDetected); Staphepi Not Reported Not Detected (NotDetected); Stenmaltophilia Not Reported Not Detected (NotDetected); Strep agal(GrpB) Not Reported Not Detected (NotDetected); Strep pneum Not Reported Not Detected (NotDetected); Strep pyog (GrpA) Not Reported Not Detected (NotDetected); Strep spp Not Reported Not Detected (NotDetected)
--- NOTE | 2023-08-18 21:19 | Hospitalist Progress Note ---
Date of Service August 18, 2023 Assessment & Plan (1) Cellulitis: Plan: Lower leg extremity cellulitis in a 68 yo female who sustained a dog bite. Dog is updated with vaccines and is the patient's pet. Will place on IV antibiotics. Patient will be admitted with sepsis/ WBC, HR above 90. will consult wound care. continue IV antibiotics on 08/17 showing improvement. awaiting PT eval. (2) Hyperlipidemia: Plan: resume home meds (3) Chronic diastolic (congestive) heart failure: Plan: resume home. Patient appears euvolemic. (4) Asthma: Plan: stable (5) Hypertension: Plan: resume metoprolol Admission and Anticipated Discharge Date Admission Date: August 15, 2023 Subjective 68 yo female reports that her pain has improved.Patient is concerned regarding her mobility. Review of Systems Review of Systems: All systems reviewed & are unremarkable except as noted in HPI & below Physical Exam Constitutional: WD/WN, vitals as above Eyes: PERRL, conjunctivae normal, anicteric sclerae ENMT: external ear and nose normal, oropharynx normal Neck: trachea midline, no thyromegaly Respiratory: normal respiratory effort, lungs clear to auscultation Cardiovascular: RRR, no murmur, no edema Gastrointestinal (Abdomen): normal bowel sounds, soft, nontender, no hepatosplenomegaly Skin: no rashes, warm and dry Neurologic: PERRL, EOMI, accommodation nl, no face palsy, no dysarthria Psychiatric: A+Ox3, euthymic affect Lymphatic: no cervical or axillary lymphadenopathy Results & Data Results & Data Vital Signs (Past 12 Hours) Vital Signs Temp Pulse Resp BP Pulse Ox O2 Del Method 08/18/23 19:56 36.6 C 72 20 144/86 H 94 Room Air 08/18/23 15:04 36.7 C 75 18 133/77 94 Room Air PG Care Time/CCT Total # of Minutes Spent Total Time Spent with Patient: Total time spent is greater than 50% in coordination of care (as documented) at patient's floor/unit and/or counseling patient: Coding Level of Care Code 26859 SUB INP/OBS CARE 2/35MIN Diagnoses Cellulitis L03.116 Laterality: left Site of cellulitis: extremity Site of cellulitis of extremity: lower extremity Hyperlipidemia, unspecified hyperlipidemia type E78.5 Hyperlipidemia type: unspecified Chronic diastolic (congestive) heart failure I50.32 Uncomplicated asthma, unspecified asthma severity, unspecified whether persistent J45.909 Asthma complication type: uncomplicated Asthma persistence: unspecified Asthma severity: unspecified severity Primary hypertension I10 Hypertension type: primary hypertension (1) Cellulitis Laterality: left Site of cellulitis: extremity Site of cellulitis of extremity: lower extremity Qualified Code(s): L03.116 - Cellulitis of left lower limb (2) Hyperlipidemia Hyperlipidemia type: unspecified Qualified Code(s): E78.5 - Hyperlipidemia, unspecified (4) Asthma Asthma complication type: uncomplicated Asthma persistence: unspecified Asthma severity: unspecified severity Qualified Code(s): J45.909 - Unspecified asthma, uncomplicated (5) Hypertension Hypertension type: primary hypertension Qualified Code(s): I10 - Essential (primary) hypertension
[2023-08-19 06:05] LABS: Hematocrit (blood only) 34.6 % (37.0-47.0); Hemoglobin 11.1 g/dl (12.0-16.0); Mean Corpuscular Hemoglobin 28.3 pg (25.0-34.0); Mean Corpuscular Hgb Conc 32.1 g/dL (32.0-36.0); Mean Corpuscular Volume 88.3 fL (80.0-100.0); Mean Platelet Volume 9.4 fL (9.4-12.4); Platelet Count 229 K/uL (130-400); RDW Coefficient of Variation 13.8 % (11.5-14.5); RDW Standard Deviation 44.3 fL (36.4-46.3); Red Blood Count 3.92 M/uL (4.20-5.40); White Blood Count 4.89 K/ul (4.8-10.8)
[2023-08-19 06:23] LABS: BUN Creatinine Ratio 17.4 (10-20); C Reactive Protein 3.55 mg/dl (0-0.5); Calcium 8.7 mg/dl (8.6-10.3); Creatinine Clr Calc Pharmacy 67.6 ml/min; Est GFR (African American) 79.3 ml/min; Est GFR (Non-African American) 68.4 ml/min; Potassium 4.4 mmol/L (3.5-5.1)
--- NOTE | 2023-08-20 08:03 | Discharge Summary ---
Date of Service August 19, 2023 Admission HPI Per Admitting Provider 68 yo reports to the ED with a dog bite. Patient reports the incident occured this past weekend. Her dog bit her leg. She noticed that over the course ot the next 2 days, patient has noticed more swelling and pain in her leg. Principal Diagnosis cellulitis Discharge Exam Constitutional WD/WN, vitals as above Eyes PERRL, conjunctivae normal, anicteric sclerae ENMT external ear and nose normal, oropharynx normal Neck trachea midline, no thyromegaly Respiratory normal respiratory effort, lungs clear to auscultation Cardiovascular RRR, no murmur, no edema Gastrointestinal (Abdomen) normal bowel sounds, soft, nontender, no hepatosplenomegaly Skin no rashes, warm and dry Neurologic PERRL, EOMI, accommodation nl, no face palsy, no dysarthria Psychiatric A+Ox3, euthymic affect Lymphatic no cervical or axillary lymphadenopathy Discharge Data Allergies Allergy/AdvReac Type Severity Reaction Status Date / Time No Known Allergies Allergy Unknown Verified 06/21/23 09:20 Consultations 08/15/23 10:44 ED Decision to Admit Stat Hospital Course (1) Cellulitis: Lower leg extremity cellulitis in a 68 yo female who sustained a dog bite. Patient admitted with sepsis: WBC, HR above 90. Dog is updated with vaccines and is the patient's pet. Treated on IV antibiotics: unasyn consulted wound care. transitioned to oral antibiotics a erythema, pain subsided. wound discharge instructions noted below. (2) Hyperlipidemia: resume home meds (3) Chronic diastolic (congestive) heart failure: resume home. Patient appears euvolemic. (4) Asthma: stable (5) Hypertension: resume metoprolol Total Time Total Time Spent Total Time Spent (In Minutes): 32 Discharge Plan Discharge Items Patient Disposition: Home - Self-Care Reason For Visit: DOG BITE Discharge Diagnosis: dog bite Activity: As commented below Activity Comment: ambulate with a walker as you improve your strength Non-emergency contact: Primary Care Provider Call non-emergency contact if: you have any medication questions Follow-up/Referrals: July Willard MD [Primary Care Provider] - 08/30/23 12:00 pm Diet: Regular Addtl Attending Provider Instructions: Good afternoon Mrs. Diaz, You were treated for a dog bite. Sadly this dog bite was infected and you required antibiotics. The good news, your infection has improved with antibiotics, we will continue augmentin for 7 more days. Please take your first dose tonight. Right leg: clean with saline. Cover affected area with aquacel Ag, overlapping by 1, secure with optifoam. Change every other day as needed for drainage or soiling. Followup at center for wound care August 28 at 810am. [address], [place], [place], [place]. ; Please followup with your PCP in 1-2 weeks. It was a pleasure. Kindest regards, Lazaro Martinez MD Pending Studies at Discharge: No Stand-Alone Forms: My [facility] [employer], Smoking Cessation Medications and DC Order Prescriptions: New amoxicillin-pot clavulanate 875-125 mg tablet 1 tab PO BID Qty: 14 0RF Continued albuterol sulfate [ProAir HFA] 90 mcg/actuation HFA aerosol inhaler 2 puff INHALATION BID PRN (Reason: Shortness Of Breath Or Wheezing) Qty: 18 5RF omeprazole 20 mg capsule,delayed release(DR/EC) 20 mg PO QAM Qty: 90 3RF Rx Instructions: listed as on hold at pharmacy furosemide [Lasix] 20 mg tablet 20 mg PO QAM Qty: 90 1RF Rx Instructions: listed as on hold at pharmacy metoprolol succinate 25 mg tablet extended release 24 hr 25 mg PO QAM Qty: 90 3RF Rx Instructions: listed as on hold at pharmacy escitalopram oxalate [Lexapro] 20 mg tablet 20 mg PO QAM Qty: 90 3RF Rx Instructions: listed as on hold at pharmacy fluticasone propion-salmeterol [Advair Diskus] 250-50 mcg/dose blister with device 1 inh inhalation Q12H Qty: 60 5RF Rx Instructions: USE 1 INHALATION ORALLY EVERY 12 HOURS propranolol 40 mg tablet 40 mg PO BID Qty: 180 3RF ferrous sulfate [iron] 325 mg (65 mg iron) tablet 325 mg PO QAM Rx Instructions: unable to verify 6/24/24 polyethylene glycol 3350 [Miralax] 17 gram powder in packet 17 g PO DAILY PRN (Reason: prn) Rx Instructions: otc unable to verify 6/24/24 aspirin 81 mg tablet 81 mg PO BID Rx Instructions: otc unable to verify 6/24/24 rosuvastatin 40 mg tablet 40 mg PO DAILY Qty: 90 3RF losartan 50 mg tablet 50 mg PO QAM Qty: 90 2RF multivitamin Tablet 1 tab PO QAM Rx Instructions: otc unable to verify 08/15/23 lorazepam 0.5 mg tablet 0.5 mg PO UD PRN (Reason: anxiety) Rx Instructions: original: 0.5 mg bid prn unable to verify Discharge Orders: Discharge Order (Routine); Ordered 08/19/23 Ordered By: Lazaro Martinez Admission Data Admit Date/Time: 08/15/23 10:41 Attending Provider: Lazaro Martinez Admit Provider: Lazaro Martinez Primary Care Provider: July Willard Other Providers: Lazaro Martinez Other Interventions: Discharge Summary Assessment (RN) Last Done: 08/19/23 14:52 Coding Level of Care Code 10980 INP/OBS DISCH >30 MIN Diagnoses Cellulitis L03.116 Laterality: left Site of cellulitis: extremity Site of cellulitis of extremity: lower extremity Hyperlipidemia, unspecified hyperlipidemia type E78.5 Hyperlipidemia type: unspecified Chronic diastolic (congestive) heart failure I50.32 Uncomplicated asthma, unspecified asthma severity, unspecified whether persistent J45.909 Asthma complication type: uncomplicated Asthma persistence: unspecified Asthma severity: unspecified severity Primary hypertension I10 Hypertension type: primary hypertension
== END 2023-08-19 16:00 | disposition home or self-care (01) | DRG 872 ==
LOC: ED 06:29 → EDINP 10:41 → 3W 12:38

== ENCOUNTER 2024-05-15 01:20 | Inpatient (IN) ==
--- NOTE | 2024-05-15 01:41 | Emergency Department Note ---
Impression & Plan COVID-19, Hypoxia ED Provider Note CHIEF COMPLAINT: Fall HISTORY OF PRESENTING ILLNESS: Patient is a 69-year-old female who arrives to the emergency department for evaluation of injury sustained from a mechanical fall. Patient reports she attempted to get up out of her leather recliner, when she slid out of the chair landing on her bottom on the ground. She reports some pain in her buttocks, however no other injury. She reports she has been feeling weak though, with shortness of breath and fever. She reports history of asthma, however she has been using her 2 inhalers as directed. She states no abdominal pain, chest pain, nausea, vomiting, dysuria, constipation or diarrhea. She reports she does not currently wear oxygen at baseline. She denies head strike, or use of anticoagulants. She is alert and oriented. REVIEW OF SYSTEMS: See HPI for pertinent positives and pertinent negatives. ALLERGIES: See below MEDICATIONS: See below PAST MEDICAL HISTORY: See below PHYSICAL EXAM: VITALS: Vitals are noted on the nurse's note and reviewed by myself. Patient is hypoxic at 88% on room air, febrile 38.7 Celsius. GENERAL: 69-year-old female, in mild distress, nondiaphoretic, obese. SKIN: The skin was without rashes, erythema, edema, or bruising. HEAD: Normocephalic atraumatic. EYES: Pupils equal round and reactive to light and accommodation. Conjunctivae without injection, sclerae without icterus. Extraocular movements intact. No nystagmus present. NOSE: Patent, turbinates without inflammation or discharge. No sinus tenderness. MOUTH: Mucous membranes moist. No tonsillar hypertrophy noted. Pharynx without erythema or exudate. Uvula midline. Airway patent. Tongue does not deviate. NECK: Supple without nuchal rigidity. No lymphadenopathy. Cervical spine is nontender. No JVD. HEART: Regular rate and rhythm without murmurs gallops or rubs. LUNGS: Coarse lung sounds bilateral bases. Wheezing noted bilateral upper lobes. ABDOMEN: Positive bowel sounds x 4. Soft, nontender, without masses or organomegaly. Dominguez sign negative. No guarding or rebound tenderness. MUSCULOSKELETAL: No muscle atrophy, erythema, or edema noted. No TTP thoracic or lumbar spine. Negative SLR bilaterally. Strength 5/5 throughout. NEURO: Patient was alert and oriented to person place and time. No focal neurological deficits. DIFFERENTIAL DIAGNOSIS: Viral syndrome, otitis, pharyngitis, pneumonia, influenza, meningitis, urinary tract infection, sepsis, bacteremia, as well as other pathologies. ED COURSE AND MEDICAL DECISION MAKING: MEDICATIONS GIVEN: 1 L NSS bolus, 1 g p.o. acetaminophen MONITOR: Continuous cardiac rn: Order was placed for continuous cardiac rn. Patient was placed on the cardiac rn and continuous pulse ox. Patient was noted to be in normal sinus rhythm at an initial rate of 84 bpm per my interpretation. EKG: EKG was interpreted by myself as normal sinus rhythm at a rate of 80 bpm, no ST elevation, depression, or ectopy. Previous for comparison from 07/2023 shows PVCs are no longer present. INTERPRETATION OF LABS: I interpreted the labs with full lab results as below in the lab section of this note. Pertinent lab results discussed in the MDM section below. INTERPRETATION OF IMAGING: Imaging studies were interpreted by myself and read by radiology as per the imaging section of this note. CHRONIC MEDICAL/SOCIAL CONDITIONS AFFECTING CARE: Morbid obesity, ambulatory dysfunction MDM SUMMARY: The patient is a pleasant 69-year-old female who arrives to the emergency department for evaluation of the above-stated complaint. Sepsis workup was obtained. Lab work shows no leukocytosis, with a stable hemoglobin and hematocrit, CMP unremarkable, lactate negative, troponin, negative, procalcitonin negative. X-ray imaging of the chest, 2 view per my interpretation shows pulmonary vascular congestion, with bilateral perihilar prominent bronchovascular markings. EKG interpreted as above. The patient was placed on 2 L nasal cannula, for hypoxia upon arrival. She was provided 1 L normal saline bolus, with oral acetaminophen for fever. Upper respiratory [employer] panel was obtained which shows positive SARS-CoV-2. Due to the patient's hypoxia upon arrival, and dyspnea with any type of exertion whatsoever with positive COVID result, admission is indicated. I spoke with the [facility] hospitalist group, who agreed to accept the patient under their care. The patient will be admitted to Dr. Taveras, for further patient workup. Please refer to his documentation. DIAGNOSIS: Hypoxia, viral illness The patient's case was discussed with Dr. Epstein, who agreed with my evaluation and treatment plan. The chart was completed utilizing [employer] voice recognition software. Grammatical errors, random word insertions, pronoun errors, and incomplete sentences are an occasional consequence of this system due to software limitations, ambient noise, and hardware issues. Any formal questions or concerns about the content, text, or information contained within the body of this dictation should be directly addressed to the provider for clarification. Past Med/Surg History Problem List (Updated 05/15/24 @ 06:36 by JAKE Ruelas) Hypoxia (Acute) (HFpEF) heart failure with preserved ejection fraction COVID-19 (Acute) Anemia Perineal irritation in female Dog bite of right hand (Acute) Dog bite of calf (Acute) Morbid obesity Cellulitis (Acute) Essential tremor S/P carpal tunnel release Vitamin D deficiency Urge and stress incontinence Restless legs syndrome Osteopenia Obesity Menopause Memory loss Hypersomnia Edema Diverticulosis of colon Cystocele, midline Allergic rhinitis Acid reflux disease (Chronic) Abnormal thyroid function test ACC/AHA stage C congestive heart failure (Chronic) Hyperlipidemia (Chronic) Status post reverse total replacement of right shoulder (~08/2020) Unable to care for self (Acute) Weakness generalized (Acute) Mora-prosthetic fracture around prosthetic joint (Acute) Encounter for examination following treatment at hospital Osteoarthritis of knees, bilateral Chest pressure Antiplatelet or antithrombotic long-term use Bilateral swelling of feet and ankles Neck pain without injury Osteoarthritis of left shoulder Palpitations Carpal tunnel syndrome of right wrist Degenerative disc disease, cervical PVC (premature ventricular contraction) Normal stress echocardiogram Normal left ventricular systolic function Chronic diastolic (congestive) heart failure Follows with PCP, on Lasix daily, low Na+ diet. Euvolemic on exam. Depression with anxiety (Chronic) Obstructive sleep apnea NO DEVICE Asthma (Chronic) Advair daily and albuterol a few times per day Hypertension (Chronic) Medical History Encounter for pre-operative examination Routine health maintenance Premature ventricular contraction follows with Dr Marrufo last seen 05/2022 Atypical chest pain Seen by [facility] cardiology 2022 for this. At the time reported chest discomfort at random but most often during times of increased emotional stress. EKG normal sinus with no acute STT wave abnormality. Also had work-up for this in 2017 with normal DSE. Per cardiology can follow-up as needed but no further cardiovascular testing or intervention recommended. Patient denies any recent chest pain at PAT. GERD (gastroesophageal reflux disease) SOB (shortness of breath) on exertion with climbing stairs Venous thromboembolism (~2009) DVT/PE. No longer on anticoagulation. Surgical History History of arthroscopic procedure on shoulder right 2020 History of hand surgery MASS REMOVAL FROM FINGER History of oral surgery REMOVAL GROWTH UNDER TONGUE History of colonoscopy History of carpal tunnel surgery LEFT Right in November 2022 S/P tonsillectomy Family History Grandmother Breast cancer Father Diabetes Heart disease Myocardial infarction Grandfather Diabetes Stroke Brother Myocardial infarction Uncle Family hx of colon cancer Denies family history of Ovarian cancer Prostate cancer Lung cancer Colorectal cancer Hypertension Social History Smoking Status: Never smoker Tobacco Type: Cigarettes Age Started Using Tobacco: 48; Age Quit Using Tobacco: 50; packs per day: 0.5; Cigarettes Per Day: Couple per day, quit 8 years ago; Second Hand Exposure: No; Do You Dip or Chew Tobacco: No; Hx Alcohol Use: No Hx Substance Use: No Preferred Language: Romanian Communication Ability: Effective Visual Impairment: Limited Hearing Ability: Normal Economics Lecturer Required: No Beliefs That Will Affect Care: None marital status: Current Living Situation: Spouse Current Living Situation Comment: Rad current occupational status: retired How many Children do You have: 2 Feels Safe at Home: Yes Childhood Exposure to Second-Hand Smoke: No Diet: regular caffeine: Yes (coffee) during the past year weight has: remained stable Dental Care, Regularly: No Physical Activity Frequency: 1-2 Times per Week Seatbelt Use: always Sunscreen Use: No Assistive Devices: None Allergies Allergies Allergy/AdvReac Type Severity Reaction Status Date / Time No Known Allergies Allergy Unknown Verified 05/04/24 09:32 Home Meds Home Medications Medication Instructions Recorded Confirmed multivitamin 1 tab PO QAM 07/25/20 05/04/24 ferrous sulfate 325 mg (65 mg 325 mg PO QAM 04/21/21 05/04/24 iron) tablet (iron) polyethylene glycol 3350 17 gram 17 g PO DAILY PRN prn 04/21/21 05/04/24 oral powder packet (Miralax) aspirin 81 mg tablet 81 mg PO BID 04/26/22 05/04/24 Previous Rx's Medication Instructions Recorded escitalopram oxalate 20 mg tablet 20 mg PO QAM #90 tabs 06/20/23 (Lexapro) metoprolol succinate 25 mg 25 mg PO QAM #90 tabs 06/20/23 tablet,extended release 24 hr omeprazole 20 mg capsule,delayed 20 mg PO QAM #90 caps 06/20/23 release rosuvastatin 40 mg tablet 40 mg PO DAILY #90 tabs 06/21/23 albuterol sulfate 90 mcg/actuation 2 puff inhalation BID PRN 09/02/23 aerosol inhaler Shortness Of Breath Or Wheezing #18 grams furosemide 20 mg tablet (Lasix) 20 mg PO QAM #90 tabs 12/19/23 fluticasone 250 mcg-salmeterol 50 1 inh inhalation Q12H #60 ea 01/09/24 mcg/dose blistr powdr for inhalation (Advair Diskus) lorazepam 0.5 mg tablet 0.5 mg PO UD PRN anxiety #30 tabs 01/23/24 losartan 25 mg tablet 25 mg PO DAILY #90 tabs 03/16/24 propranolol 40 mg tablet 40 mg PO BID #180 tabs 04/23/24 Results & Data (ED) Vital Signs Vital Signs - 24 hr 05/15/24 01:27 05/15/24 01:28 05/15/24 02:15 Temperature 38.7 C H Temperature Source Oral Pulse Rate 83 84 Pulse Rate [Right] 100 H Pulse Rhythm [Right] Pulse Strength [Right] Respiratory Rate 19 16 Respiratory Effort / Characteristics Non-Labored Spontaneous Non-Labored Spontaneous Respiratory Depth Normal Normal Respiratory Pattern Regular Blood Pressure 141/82 H Blood Pressure [Right Arm] 136/88 Blood Pressure Mean 101 Blood Pressure Mean [Right Arm] 104 Pulse Oximetry 88 L 98 Oxygen Delivery Method Room Air Room Air Sepsis Recent Fever Within 48 Hours Yes Sepsis New/Unexplained Change in Mental Status N/A Sepsis Action Taken by Nursing No Action Required 05/15/24 02:15 05/15/24 03:03 05/15/24 03:11 Temperature 37.7 C H Temperature Source Oral Pulse Rate 85 Pulse Rate [Right] 88 Pulse Rhythm [Right] Regular Pulse Strength [Right] Normal Respiratory Rate 23 22 Respiratory Effort / Characteristics Non-Labored Spontaneous Respiratory Depth Normal Respiratory Pattern Regular Blood Pressure 125/89 Blood Pressure [Right Arm] 125/89 Blood Pressure Mean 101 Blood Pressure Mean [Right Arm] 101 Pulse Oximetry 96 91 92 Oxygen Delivery Method Room Air Room Air Sepsis Recent Fever Within 48 Hours Sepsis New/Unexplained Change in Mental Status Sepsis Action Taken by Nursing 05/15/24 04:42 05/15/24 05:06 05/15/24 05:25 Temperature Temperature Source Pulse Rate 82 81 90 Pulse Rate [Right] Pulse Rhythm [Right] Pulse Strength [Right] Respiratory Rate 30 H 25 H Respiratory Effort / Characteristics Respiratory Depth Respiratory Pattern Blood Pressure 136/81 141/85 H Blood Pressure [Right Arm] Blood Pressure Mean 99 103 Blood Pressure Mean [Right Arm] Pulse Oximetry 92 91 Oxygen Delivery Method Sepsis Recent Fever Within 48 Hours Sepsis New/Unexplained Change in Mental Status Sepsis Action Taken by Nursing 05/15/24 05:36 05/15/24 06:09 Temperature Temperature Source Pulse Rate 79 79 Pulse Rate [Right] Pulse Rhythm [Right] Pulse Strength [Right] Respiratory Rate 25 H 25 H Respiratory Effort / Characteristics Respiratory Depth Respiratory Pattern Blood Pressure 145/101 H 148/91 H Blood Pressure [Right Arm] Blood Pressure Mean 115 110 Blood Pressure Mean [Right Arm] Pulse Oximetry 91 94 Oxygen Delivery Method Sepsis Recent Fever Within 48 Hours Sepsis New/Unexplained Change in Mental Status Sepsis Action Taken by Correction Medications Current Medication List: was personally reviewed by me Laboratory Data Attestation: I reviewed the patient's lab results. 05/15/24 01:28 05/15/24 01:28 Lab Results 05/15/24 05/15/24 05/15/24 Range/Units 01:25 01:28 02:19 WBC 6.55 (4.8-10.8) K/ul RBC 4.52 (4.20-5.40) M/uL Hgb 12.6 (12.0-16.0) g/dl Hct 39.8 (37.0-47.0) % MCV 88.1 (80.0-100.0) fL MCH 27.9 (25.0-34.0) pg MCHC 31.7 L (32.0-36.0) g/dL RDW Std Deviation 46.8 H (36.4-46.3) fL RDW Coeff of Cristian 14.6 H (11.5-14.5) % Plt Count 175 (130-400) K/uL MPV 9.5 (9.4-12.4) fL Immature Gran % (Auto) 0.3 % Neut % (Auto) 81.6 % Lymph % (Auto) 10.2 % Valencia % (Auto) 6.4 % Eos % (Auto) 1.2 % Baso % (Auto) 0.3 % Neut # (Auto) 5.34 (1.40-6.50) K/uL Lymph # (Auto) 0.67 L (1.20-3.40) K/uL Valencia # (Auto) 0.42 (0.11-0.59) K/uL Eos # (Auto) 0.08 (0.00-0.50) K/uL Baso # (Auto) 0.02 (0.00-0.20) K/uL Immature Gran # (Auto) 0.02 (0.01-0.20) K/uL Sodium 143 (136-145) mmol/L Potassium 3.9 (3.5-5.1) mmol/L Chloride 105 (98-107) mmol/L Carbon Dioxide 31 (21-32) mmol/L Anion Gap 7 (3-11) BUN 20 (6-23) mg/dl Creatinine 0.96 (0.6-1.2) mg/dl Est Cr Clr Drug Dosing 58.2 ml/min eGFR 63.25 BUN/Creatinine Ratio 20.8 H (10-20) Glucose 121 H (70-99(Fasting)) mg/dl Lactate 1.3 (0.4-2.0) mmol/L Calcium 8.7 (8.6-10.3) mg/dl Magnesium 1.9 (1.7-2.4) mg/dl Total Bilirubin 0.5 (0.2-1.0) mg/dl Direct Bilirubin 0.1 (0-0.2) mg/dl AST 18 (13-39) U/L ALT 15 (7-52) U/L Alkaline Phosphatase 57 (34-104) U/L Troponin I High Sens < 2.3 (0-14) pg/ml Total Protein 7.1 (6.0-8.3) gm/dl Albumin 4.1 (3.4-5.0) gm/dl Procalcitonin 0.31 (0-0.5) ng/ml Urine Color Yellow Urine Appearance Clear (Clear) Urine pH 6.0 (4.5-7.5) Ur Specific Alexander 1.027 (1.000-1.030) Urine Protein Negative (Negative) Urine Glucose (UA) Negative (Negative) Urine Ketones Trace H (Negative) Urine Blood Negative (Negative) Urine Nitrite Negative (Negative) Urine Bilirubin Negative (Negative) Urine Urobilinogen Negative (Negative) Ur Leukocyte Esterase Negative (Negative) Adenovirus (PCR) Not Detected (NotDetected) B. pertussis DNA (PCR) Not Detected (NotDetected) B.parapertussis DNA PCR Not Detected (NotDetected) C. pneumoniae DNA (PCR) Not Detected (NotDetected) Coronavirus OC43 (PCR) Not Detected (NotDetected) Coronavirus HKU1 (PCR) Not Detected (NotDetected) Coronavirus 229E (PCR) Not Detected (NotDetected) SARS-CoV-2 (PCR) DETECTED A (NotDetected) Coronavirus NL63 (PCR) Not Detected (NotDetected) Human Metapneumovir PCR Not Detected (NotDetected) Influenza Type A (PCR) Not Detected (NotDetected) Influenza Type B (PCR) Not Detected (NotDetected) M. pneumoniae (PCR) Not Detected (NotDetected) Parainfluenza 1 (PCR) Not Detected (NotDetected) Parainfluenza 2 (PCR) Not Detected (NotDetected) Parainfluenza 3 (PCR) Not Detected (NotDetected) Parainfluenza 4 (PCR) Not Detected (NotDetected) RSV (PCR) Not Detected (NotDetected) Entero/Rhino (PCR) Not Detected (NotDetected) Administered Medications Remdesivir 200 mg/ Sodium (Chloride) 250 mls @ 125 mls/hr IV ONE STA Stop: 05/15/24 07:05 Last Admin: 05/15/24 05:52 Dose: 125 mls/hr Documented By: EJW Discontinued Medications Acetaminophen (Acetaminophen 500 Mg Tab) 1,000 mg PO NOW STA Stop: 05/15/24 01:53 Last Admin: 05/15/24 01:56 Dose: 1,000 mg Documented By: TJRosana Dexamethasone Sodium Phosphate (DexamethasonePf 10 Mg/Ml Vial) 10 mg IV NOW ONE Stop: 05/15/24 05:07 Last Admin: 05/15/24 05:39 Dose: 10 mg Documented By: FLIP Furosemide (Furosemide 40 Mg Tab) 40 mg PO NOW ONE Stop: 05/15/24 05:16 Last Admin: 05/15/24 05:39 Dose: 40 mg Documented By: FLIP Sodium Chloride (Nss) 1,000 mls @ 999 mls/hr IV .Q1H1M FAINA Stop: 05/15/24 03:45 Last Infusion: 05/15/24 04:06 Dose: Infused Documented By: Admin: 05/15/24 02:59 Dose: 999 mls/hr Documented By: Infusion: 05/15/24 02:58 Dose: Infused Documented By: Admin: 05/15/24 01:57 Dose: 999 mls/hr Documented By: JENNIFER Imaging Data Attestation: I personally reviewed and interpreted this imaging study as follows: Radiologist's Impression: Chest X-Ray 05/15/24 01:45 EXAM: XR chest 2V PA/lateral CLINICAL HISTORY: Sob TECHNIQUE: X-ray images of the chest were obtained in posteroanterior (PA) and lateral projections. COMPARISON: CR 08/15/2023. FINDINGS: Pulmonary Parenchyma: Lungs show prominent perihilar bronchovascular markings with pulmonary vascular congestion. No evidence of consolidation, collapse, or focal opacities. No pulmonary nodules identified. No evidence of pleural effusion or pleural thickening. Heart and Mediastinum: Heart size and shape are normal. No mediastinal widening or masses. No hilar or mediastinal lymphadenopathy. Prominent aortic arch with wall calcification. Bony Thorax: Bony thorax appears intact without fractures or deformities. Total right shoulder replacement. Severe chronic osteoarthritis of the left shoulder. Soft Tissues: Soft tissues overlying the chest wall are unremarkable. IMPRESSION: Bilateral perihilar prominent bronchovascular markings with pulmonary vascular congestion, more prominent compared to last CR. Prominent aortic arch with atherosclerosis. Electronically signed by Fuentes Lorenz 05-15-2024 02:51 AM Discharge Plan Visit Data Chief Complaint: Fall Stated Complaint: FALL ED Provider: Radha Epstein ED Midlevel Provider: Mayte Cassidy Discharge Problem: COVID-19, Hypoxia Forms Stand Alone Forms: [facility] [place] [employer] Prescriptions Prescriptions: No Action omeprazole 20 mg capsule,delayed release(DR/EC) 20 mg PO QAM Qty: 90 3RF Rx Instructions: listed as on hold at pharmacy metoprolol succinate 25 mg tablet extended release 24 hr 25 mg PO QAM Qty: 90 3RF Rx Instructions: listed as on hold at pharmacy escitalopram oxalate [Lexapro] 20 mg tablet 20 mg PO QAM Qty: 90 3RF Rx Instructions: listed as on hold at pharmacy albuterol sulfate 90 mcg/actuation HFA aerosol inhaler 2 puff INHALATION BID PRN (Reason: Shortness Of Breath Or Wheezing) Qty: 18 5RF furosemide [Lasix] 20 mg tablet 20 mg PO QAM Qty: 90 1RF Rx Instructions: listed as on hold at pharmacy fluticasone propion-salmeterol [Advair Diskus] 250-50 mcg/dose blister with device 1 inh inhalation Q12H Qty: 60 5RF Rx Instructions: USE 1 INHALATION ORALLY EVERY 12 HOURS lorazepam 0.5 mg tablet 0.5 mg PO UD PRN (Reason: anxiety) Qty: 30 0RF losartan 25 mg tablet 25 mg PO DAILY Qty: 90 3RF propranolol 40 mg tablet 40 mg PO BID Qty: 180 3RF ferrous sulfate [iron] 325 mg (65 mg iron) tablet 325 mg PO QAM Rx Instructions: unable to verify 6/24/24 polyethylene glycol 3350 [Miralax] 17 gram powder in packet 17 g PO DAILY PRN (Reason: prn) Rx Instructions: otc unable to verify 6/24/24 aspirin 81 mg tablet 81 mg PO BID Rx Instructions: otc unable to verify 6/24/24 rosuvastatin 40 mg tablet 40 mg PO DAILY Qty: 90 3RF multivitamin Tablet 1 tab PO QAM Rx Instructions: otc unable to verify 6/24/24 Referrals Referrals: July Willard MD [Primary Care Provider] -
--- NOTE | 2024-05-15 01:48 | Emergency Department Note ---
ED Visit Note I was consulted by the Advanced Practice Provider. I personally made/approved the management plan and take responsibility for the patient management. I performed a substantive portion of the visit. This includes the aspects of: Personally seeing the patient -MDM -I independently interpreted the following studies: Portable chest x-ray: Pulmonary vascular congestion with no obvious consolidation .
[2024-05-15] MEDS: ACETAMINOPHEN 500 MG TAB PO STA (01:56)
[2024-05-15] MEDS: SODIUM CHLORIDE 0.9% 1,000 ML IV SCH (01:57)
[2024-05-15 02:00] LABS: Appearance Urine Clear (Clear); Bilirubin Urine Negative (Negative); Blood Urine Negative (Negative); Color Urine Yellow; Glucose Urine UA Negative (Negative); Ketones Urine Trace (Negative); Leukocyte Esterase Urine Negative (Negative); Nitrite Urine Negative (Negative); Protein Urine Negative (Negative); Specific Gravity Urine 1.027 (1.000-1.030); Urobilinogen Urine Negative (Negative)
[2024-05-15 02:10] LABS: Basophils # (auto) 0.02 K/uL (0.00-0.20); Basophils % (auto) 0.3 %; Eosinophils # (auto) 0.08 K/uL (0.00-0.50); Eosinophils % (auto) 1.2 %; Hematocrit (blood only) 39.8 % (37.0-47.0); Hemoglobin 12.6 g/dl (12.0-16.0); Immature Granulocytes # (auto) 0.02 K/uL (0.01-0.20); Immature Granulocytes % (auto) 0.3 %; Lymphocytes # (auto) 0.67 K/uL (1.20-3.40); Lymphocytes % (auto) 10.2 %; Mean Corpuscular Hemoglobin 27.9 pg (25.0-34.0); Mean Corpuscular Hgb Conc 31.7 g/dL (32.0-36.0); Mean Corpuscular Volume 88.1 fL (80.0-100.0); Mean Platelet Volume 9.5 fL (9.4-12.4); Monocytes # (auto) 0.42 K/uL (0.11-0.59); Monocytes % (auto) 6.4 %; Neutrophils # (auto) 5.34 K/uL (1.40-6.50); Neutrophils % (auto) 81.6 %; Platelet Count 175 K/uL (130-400); RDW Coefficient of Variation 14.6 % (11.5-14.5); RDW Standard Deviation 46.8 fL (36.4-46.3); Red Blood Count 4.52 M/uL (4.20-5.40); White Blood Count 6.55 K/ul (4.8-10.8)
[2024-05-15 02:22] LABS: Alanine Aminotransferase 15 U/L (7-52); Albumin Level 4.1 gm/dl (3.4-5.0); Alkaline Phosphatase 57 U/L (34-104); Anion Gap 7 (3-11); Aspartate Aminotransferase 18 U/L (13-39); BUN Creatinine Ratio 20.8 (10-20); Bilirubin Direct 0.1 mg/dl (0-0.2); Bilirubin,Total 0.5 mg/dl (0.2-1.0); Blood Urea Nitrogen 20 mg/dl (6-23); Calcium 8.7 mg/dl (8.6-10.3); Carbon Dioxide 31 mmol/L (21-32); Chloride 105 mmol/L (98-107); Creatinine Clr Calc Pharmacy 58.2 ml/min; Glucose 121 mg/dl (70-99(Fasting)); Magnesium 1.9 mg/dl (1.7-2.4); Potassium 3.9 mmol/L (3.5-5.1); Sodium 143 mmol/L (136-145); Total Protein 7.1 gm/dl (6.0-8.3)
[2024-05-15 02:28] LABS: Troponin I High Sensitivity < 2.3 pg/ml (0-14)
--- NOTE | 2024-05-15 02:52 | XRay Report ---
EXAM: XR chest 2V PA/lateral CLINICAL HISTORY: Sob TECHNIQUE: X-ray images of the chest were obtained in posteroanterior (PA) and lateral projections. COMPARISON: CR 08/15/2023. FINDINGS: Pulmonary Parenchyma: Lungs show prominent perihilar bronchovascular markings with pulmonary vascular congestion. No evidence of consolidation, collapse, or focal opacities. No pulmonary nodules identified. No evidence of pleural effusion or pleural thickening. Heart and Mediastinum: Heart size and shape are normal. No mediastinal widening or masses. No hilar or mediastinal lymphadenopathy. Prominent aortic arch with wall calcification. Bony Thorax: Bony thorax appears intact without fractures or deformities. Total right shoulder replacement. Severe chronic osteoarthritis of the left shoulder. Soft Tissues: Soft tissues overlying the chest wall are unremarkable. IMPRESSION: Bilateral perihilar prominent bronchovascular markings with pulmonary vascular congestion, more prominent compared to last CR. Prominent aortic arch with atherosclerosis. Electronically signed by Fuentes Lorenz 05-15-2024 02:51 AM
[2024-05-15 03:43] LABS: Adenovirus PCR Not Detected (NotDetected); Bordetella parapertussis PCR Not Detected (NotDetected); Bordetella pertussis PCR Not Detected (NotDetected); Chlamydia pneumoniae PCR Not Detected (NotDetected); Coronavirus 229E PCR Not Detected (NotDetected); Coronavirus CoV-2 (COVID19)PCR DETECTED (NotDetected); Coronavirus HKU1 PCR Not Detected (NotDetected); Coronavirus NL63 PCR Not Detected (NotDetected); Coronavirus OC43PCR Not Detected (NotDetected); Human Metapneumovirus PCR Not Detected (NotDetected); Influenza A PCR Not Detected (NotDetected); Influenza B PCR Not Detected (NotDetected); Mycoplasma pneumoniae PCR Not Detected (NotDetected); Parainfluenza Virus 1 PCR Not Detected (NotDetected); Parainfluenza Virus 2 PCR Not Detected (NotDetected); Parainfluenza Virus 3 PCR Not Detected (NotDetected); Parainfluenza Virus 4 PCR Not Detected (NotDetected); Respiratory Syncytial VirusPCR Not Detected (NotDetected); Rhinovirus/Enterovirus PCR Not Detected (NotDetected)
--- NOTE | 2024-05-15 04:47 | History & Physical Report ---
Date of Service May 15, 2024 Assessment & Plan (1) COVID-19: (2) Obstructive sleep apnea: (3) Asthma: (4) Depression with anxiety: (5) Chronic diastolic (congestive) heart failure: Plan Pt is a 69 yo female with a past med hx of TOMASA not on CPAP, asthma, diastolic HF (last echo april 2021), obesity, HTN, depression who presents to the hospital on 05/15 for weakness after sliding off the couch at home and being unable to get up, found to have COVID-19, admitted for hypoxia with ambulation. #COVID-19 infection in asthmatic pt - also with hx of TOMASA but does not use CPAP (states she was ordered one but had issues with it, not interested in CPAP here) - admission [facility] + for COVID 19 - will do remdesivir - will initiate dexamethasone 10mg loading dose and 6 mg daily thereafter starting tomorrow - tylenol for fever - home albuterol q4h - home advair or formulary equivalent #HFpEF - was given 2L in 1L boluses x2 in the ED - CXR on admission with pulm congestion - takes lasix 20 mg daily, will do 40 mg dose on admission then continue daily dosing - consider new echo - continue metoprolol #HTN - continue home losartan - continue home propranolol #Depression with anxiety - continue home escitalopram - home lorazepam for prn anxiety Holding home statin given remdesivir VTE: Lovenox History of Present Illness Chief Complaint: Weakness, COVID19 + Primary Care Provider: July Willard MD Pt is a 69 yo female with a past med hx of TOMASA not on CPAP, asthma, diastolic HF (last echo april 2021), obesity, HTN, depression who presents to the hospital on 05/15 for weakness after sliding off the couch at home and being unable to get up, found to have COVID-19, admitted for hypoxia with ambulation. Pt seen at bedside. She states she has felt very weak today and maybe yesterday as well and also notes some nasal congestion. She states she does feel her breathing is a bit more labored than usual but no chest pain. No abdominal pain. No nausea or vomiting. No dysuria. She states she lives with her but he is currently admitted at a different hospital, so she is on her own. She states overall she just feels weaker than normal, but otherwise no complaints. With the fall today, she states she went to get up off the couch and ended up sliding off to the ground. No head trauma, no LOC, no chest pain/SOB/palpitations preceding incident. Her biggest concern at admission is that she has a dog at home that would need taken care of with admission to the hospital, but does state her daughter can likely come get her keys to do that. Allergies Allergy/AdvReac Type Severity Reaction Status Date / Time No Known Allergies Allergy Unknown Verified 05/15/24 08:32 Home Medications Medication Instructions Recorded Confirmed Type multivitamin 1 tab PO QAM 07/25/20 05/15/24 History ferrous sulfate 325 mg (65 mg 325 mg PO QAM 04/21/21 05/15/24 History iron) tablet (iron) polyethylene glycol 3350 17 gram 17 g PO DAILY PRN Constipation 04/21/21 05/15/24 History oral powder packet (Miralax) escitalopram oxalate 20 mg tablet 20 mg PO QAM #90 tabs 06/20/23 05/15/24 Rx (Lexapro) metoprolol succinate 25 mg 25 mg PO QAM #90 tabs 06/20/23 05/15/24 Rx tablet,extended release 24 hr omeprazole 20 mg capsule,delayed 20 mg PO QAM #90 caps 06/20/23 05/15/24 Rx release rosuvastatin 40 mg tablet 40 mg PO DAILY #90 tabs 06/21/23 05/15/24 Rx albuterol sulfate 90 mcg/actuation 2 puff inhalation BID PRN 09/02/23 05/15/24 Rx aerosol inhaler Shortness Of Breath Or Wheezing #18 grams furosemide 20 mg tablet (Lasix) 20 mg PO QAM #90 tabs 12/19/23 05/15/24 Rx fluticasone 250 mcg-salmeterol 50 1 inh inhalation Q12H #60 ea 01/09/24 05/15/24 Rx mcg/dose blistr powdr for inhalation (Advair Diskus) losartan 25 mg tablet 25 mg PO DAILY #90 tabs 03/16/24 05/15/24 Rx propranolol 40 mg tablet 40 mg PO BID #180 tabs 04/23/24 05/15/24 Rx aspirin 81 mg tablet,delayed 81 mg PO BID 05/15/24 05/15/24 History release lorazepam 0.5 mg tablet 0.5 mg PO DAILY PRN Anxiety 05/15/24 05/15/24 History Past Med/Surg History Problem List (Updated 05/15/24 @ 06:36 by JAKE Ruelas) Hypoxia (Acute) (HFpEF) heart failure with preserved ejection fraction COVID-19 (Acute) Anemia Perineal irritation in female Dog bite of right hand (Acute) Dog bite of calf (Acute) Morbid obesity Cellulitis (Acute) Essential tremor S/P carpal tunnel release Vitamin D deficiency Urge and stress incontinence Restless legs syndrome Osteopenia Obesity Menopause Memory loss Hypersomnia Edema Diverticulosis of colon Cystocele, midline Allergic rhinitis Acid reflux disease (Chronic) Abnormal thyroid function test ACC/AHA stage C congestive heart failure (Chronic) Hyperlipidemia (Chronic) Status post reverse total replacement of right shoulder (~08/2020) Unable to care for self (Acute) Weakness generalized (Acute) Mora-prosthetic fracture around prosthetic joint (Acute) Encounter for examination following treatment at hospital Osteoarthritis of knees, bilateral Chest pressure Antiplatelet or antithrombotic long-term use Bilateral swelling of feet and ankles Neck pain without injury Osteoarthritis of left shoulder Palpitations Carpal tunnel syndrome of right wrist Degenerative disc disease, cervical PVC (premature ventricular contraction) Normal stress echocardiogram Normal left ventricular systolic function Chronic diastolic (congestive) heart failure Follows with PCP, on Lasix daily, low Na+ diet. Euvolemic on exam. Depression with anxiety (Chronic) Obstructive sleep apnea NO DEVICE Asthma (Chronic) Advair daily and albuterol a few times per day Hypertension (Chronic) Medical History Encounter for pre-operative examination Routine health maintenance Premature ventricular contraction follows with Dr Marrufo last seen 05/2022 Atypical chest pain Seen by [facility] 2022 for this. At the time reported chest discomfort at random but most often during times of increased emotional stress. EKG normal sinus with no acute STT wave abnormality. Also had work-up for this in 2017 with normal DSE. Per cardiology can follow-up as needed but no further cardiovascular testing or intervention recommended. Patient denies any recent chest pain at [facility]. GERD (gastroesophageal reflux disease) SOB (shortness of breath) on exertion with climbing stairs Venous thromboembolism (~2009) DVT/PE. No longer on anticoagulation. Surgical History History of arthroscopic procedure on shoulder right 2020 History of hand surgery MASS REMOVAL FROM FINGER History of oral surgery REMOVAL GROWTH UNDER TONGUE History of colonoscopy History of carpal tunnel surgery LEFT Right in November 2022 S/P tonsillectomy Family History Grandmother Breast cancer Father Diabetes Heart disease Myocardial infarction Grandfather Diabetes Stroke Brother Myocardial infarction Uncle Family hx of colon cancer Denies family history of Ovarian cancer Prostate cancer Lung cancer Colorectal cancer Hypertension Social History Smoking Status: Former smoker Tobacco Type: Cigarettes Age Started Using Tobacco: 48; Age Quit Using Tobacco: 50; packs per day: 0.5; Cigarettes Per Day: Couple per day, quit 8 years ago; Second Hand Exposure: No; Do You Dip or Chew Tobacco: No; Tobacco Cessation Education Requested by Patient: No Hx Alcohol Use: Yes Alcohol type: beer Alcohol Intake Frequency: Monthly or Less Hx Substance Use: No Preferred Language: Yi Communication Ability: Effective Visual Impairment: Limited Hearing Ability: Normal Building Operator Required: No Beliefs That Will Affect Care: None marital status: Current Living Situation: Spouse Current Living Situation Comment: Rad current occupational status: retired How many Children do You have: 2 Other Information That Helps Us Care for You: No Feels Safe at Home: Yes Safety Concerns: Feels Safe At This Time Childhood Exposure to Second-Hand Smoke: No Diet: regular caffeine: Yes (coffee) during the past year weight has: remained stable Dental Care, Regularly: No Physical Activity Frequency: 1-2 Times per Week Seatbelt Use: always Sunscreen Use: No Assistive Devices: Cane, Glasses and Walker Review of Systems Review of Systems: Per HPI. Physical Exam Physical Exam: General:Alert and oriented, no acute distress, mildly increased resp effort HEENT: Normocephalic, moist oral mucosa, Cardio: Regular rate and rhythm, Resp:Difficult to auscultate due to body habitus, no wheezes or rhonchi noted, air movement is subpar GI: Soft and nontender, nondistended, bowel sounds active Skin: Warm, pink, dry, Results & Data Results & Data Vital Signs (Past 12 Hours) Vital Signs Temp Pulse Pulse Resp BP BP Pulse Ox 05/15/24 03:11 37.7 C H 88 22 125/89 92 05/15/24 03:03 85 23 125/89 91 05/15/24 02:15 96 05/15/24 02:15 100 H 16 136/88 98 05/15/24 01:28 84 05/15/24 01:27 38.7 C H 83 19 141/82 H 88 L O2 Del Method 05/15/24 03:11 Room Air 05/15/24 03:03 05/15/24 02:15 Room Air 05/15/24 02:15 Room Air 05/15/24 01:28 05/15/24 01:27 Room Air Supervising Physician Co-Signing Physician Notes Attending addendum: I have physically seen this patient, have supervised the medical residents activities, and agree with the H&P unless as otherwise noted. Assessment and Plan: The patient is a 69-year-old female with past medical history including TOMASA not on CPAP, asthma, diastolic CHF, obesity, hypertension and depression, who presents to the emergency department after sliding off of her couch at home, and landing on her buttocks gently, and unable to get up. She is found to have COVID-19 on testing in the emergency department and is admitted for treatment of hypoxia with ambulation. #Acute respiratory failure with COVID-19 infection/asthma exacerbation- Pulse ox 86% on room air improved to mid 90s with 2 L nasal cannula Placed on dexamethasone 10 mg IV loading dose and then 6 mg IV daily Remdesivir IV per protocol Continue home albuterol every 4 hours Acetaminophen 650 mg by mouth every 6 hours as needed for mild pain or fever HFpEF/hypertension- Increasing Lasix from 20 to 40 mg daily The patient will be admitted to telemetry for serial cardiac enzymes, serial EKG's, cardiac rhythm monitoring and a 2-D echocardiogram with Dopplers. Continue metoprolol, losartan and propranolol Depression with anxiety- Continue escitalopram and lorazepam Resident Activity Tracking Resident Involvement: Resident Care Provided Care Provided: Adult Hospital Medicine (3) Asthma Asthma complication type: uncomplicated Asthma persistence: unspecified Asthma severity: unspecified severity Qualified Code(s): J45.909 - Unspecified asthma, uncomplicated
[2024-05-15] MEDS: dexAMETHasone**PF** 10 MG/ML VIAL IV ONE (05:39)
[2024-05-15] MEDS: FUROSEMIDE 40 MG TAB PO ONE (05:39)
[2024-05-15] MEDS: REMDESIVIR 200 MG in SODIUM CHLORIDE 0.9% 210 ML IV STA (05:52)
[2024-05-15] MEDS ORDERED: LORazepam 0.5 MG TAB PO PRN (07:18)
[2024-05-15] MEDS ORDERED: ONDANSETRON INJ 2 MG/ML 2 ML VIAL IV PRN (07:18)
[2024-05-15] MEDS ORDERED: POLYETHYLENE (MIRALAX) 17 GM PACK PO PRN (07:18)
[2024-05-15] MEDS ORDERED: ALBUTEROL HFA 8 GM INHALER INH PRN (07:18)
[2024-05-15] MEDS ORDERED: MELATONIN 3 MG TAB PO PRN (07:18)
[2024-05-15] MEDS: ENOXAPARIN INJ 40 MG/0.4 ML SYR SQ SCH (08:40)
[2024-05-15] MEDS: ASPIRIN 81 MG ECTAB PO SCH (08:42)
[2024-05-15] MEDS: FLUTICASONE/VILANTEROL 200/25MCG 14 PUFFS/INHALER INH SCH (08:42)
[2024-05-15] MEDS: ESCITALOPRAM OXALATE 20 MG TAB PO SCH (08:42)
[2024-05-15] MEDS: LOSARTAN POTASSIUM 25 MG TAB PO SCH (08:43)
[2024-05-15] MEDS: METOPROLOL SUCC 25MG EXT REL TAB PO SCH (08:43)
[2024-05-15] MEDS: PROPRANOLOL HCL 20 MG TAB PO SCH (08:44)
[2024-05-15] MEDS: PANTOprazole 40 MG TAB PO SCH (08:44)
[2024-05-15] MEDS: ACETAMINOPHEN 325 MG TAB PO PRN (08:57)
[2024-05-15] MEDS: ALBUTEROL HFA 8 GM INHALER INH SCH (13:38)
--- NOTE | 2024-05-15 14:16 | Electrocardiogram Report ---
Test Reason : Blood Pressure : */* mmHG Vent. Rate : 80 BPM Atrial Rate : 80 BPM P-R Int : 132 ms QRS Dur : 90 ms QT Int : 364 ms P-R-T Axes : -8 33 65 degrees QTcB Int : 419 ms Normal sinus rhythm Normal ECG When compared with ECG of 17-Aug-2023 12:08, Premature ventricular complexes are no longer Present Confirmed by Ronn Montesinos ([id number]) on 05/15/2024 2:16:13 PM Referred By: Confirmed By: Ronn Montesinos
[2024-05-15 15:45] LABS: A calco-baum cmplx NotReported Not Detected (NotDetected); Bact fragilis Not Reported Not Detected (NotDetected); Blood Culture Id Panel PCR Panel Negative (NotDetected); C auris Not Reported Not Detected (NotDetected); Calbicans Not Reported Not Detected (NotDetected); Candida glabrata Not Reported Not Detected (NotDetected); Candida krusei Not Reported Not Detected (NotDetected); Cneoformans/gatti Not Reported Not Detected (NotDetected); Cparapsilosis Not Reported Not Detected (NotDetected); E cloacae compx Not Reported Not Detected (NotDetected); Efaecalis Not Reported Not Detected (NotDetected); Efaecium Not Reported Not Detected (NotDetected); Enterobacterales Not Reported Not Detected (NotDetected); Escherichia coli Not Reported Not Detected (NotDetected); H influenzae Not Reported Not Detected (NotDetected); K aerogenes Not Reported Not Detected (NotDetected); Koxytoca Not Reported Not Detected (NotDetected); Kpneumoniae grp Not Reported Not Detected (NotDetected); Lmonocyt Not Reported Not Detected (NotDetected); N meningitidis Not Reported Not Detected (NotDetected); P aeruginosa Not Reported Not Detected (NotDetected); Proteus spp Not Reported Not Detected (NotDetected); Salmonella spp Not Reported Not Detected (NotDetected); Staph lugdunensis Not Reported Not Detected (NotDetected); Staph spp. Not Reported Not Detected (NotDetected); Staphaureus Not Reported Not Detected (NotDetected); Staphepi Not Reported Not Detected (NotDetected); Stenmaltophilia Not Reported Not Detected (NotDetected); Strep agal(GrpB) Not Reported Not Detected (NotDetected); Strep pneum Not Reported Not Detected (NotDetected); Strep pyog (GrpA) Not Reported Not Detected (NotDetected); Strep spp Not Reported Not Detected (NotDetected)
[2024-05-15] MEDS: CEFEPIME 2000MG 2,000 MG/20 ML SYR IV SCH (17:52)
[2024-05-15] MEDS: MELATONIN 3 MG TAB PO PRN (21:55)
--- NOTE | 2024-05-16 03:28 | Billing Data ---
Date of Service May 16, 2024 Coding Level of Care Code 28199 INT INP/OBS CARE
[2024-05-16] MEDS: REMDESIVIR 100 MG in SODIUM CHLORIDE 0.9% 230 ML IV SCH (05:27)
[2024-05-16] MEDS: dexAMETHasone 6 MG in SYRINGE 0 ML IV SCH (05:27)
[2024-05-16] MEDS: ALBUTEROL HFA 8 GM INHALER INH SCH (07:06)
[2024-05-16 07:27] LABS: Hematocrit (blood only) 33.3 % (37.0-47.0); Hemoglobin 10.7 g/dl (12.0-16.0); Immature Granulocytes # (auto) 0.04 K/uL (0.01-0.20); Immature Granulocytes % (auto) 0.5 %; Lymphocytes # (auto) 0.78 K/uL (1.20-3.40); Lymphocytes % (auto) 9.3 %; Mean Corpuscular Hemoglobin 28.2 pg (25.0-34.0); Mean Corpuscular Hgb Conc 32.1 g/dL (32.0-36.0); Mean Corpuscular Volume 87.9 fL (80.0-100.0); Mean Platelet Volume 10.3 fL (9.4-12.4); Monocytes # (auto) 0.43 K/uL (0.11-0.59); Monocytes % (auto) 5.1 %; Neutrophils # (auto) 7.16 K/uL (1.40-6.50); Neutrophils % (auto) 85.1 %; Platelet Count 157 K/uL (130-400); RDW Coefficient of Variation 14.5 % (11.5-14.5); RDW Standard Deviation 47.1 fL (36.4-46.3); Red Blood Count 3.79 M/uL (4.20-5.40); White Blood Count 8.41 K/ul (4.8-10.8)
[2024-05-16 07:47] LABS: Albumin Globulin Ratio 1.3 (0.9-2); Albumin Level 3.4 gm/dl (3.4-5.0); Bilirubin,Total 0.3 mg/dl (0.2-1.0); Creatinine Clr Calc Pharmacy 75.5 ml/min; Globulin 2.6 gm/dl (2.5-4.0); Potassium 3.8 mmol/L (3.5-5.1)
--- NOTE | 2024-05-16 09:22 | Infectious Disease Consult ---
Date of Consultation May 16, 2024 Assessment & Plan (1) Bacteremia: (2) COVID-19: (3) Hypoxia: Plan Problems: #Aeromonas hydrophila/caviae bacteremia #COVID-19 #Hypoxia: on 3 L NC Micro: 05/15 BCx x2: Aeromonas hydrophila/caviae in 3/4 bottles Abx: Cefepime 05/15 - present 69 yo F with TOMASA not on CPAP, asthma, diastolic HF, obesity, HTN, depression who presented on 05/15 with weakness after sliding off a couch at home and being unable to get up, nasal congestion, shortness of breath, admitted with COVID-19 and found to have Aeromonas hydrophila/caviae bacteremia. Denied abd pain, N/V, dysuria. No wounds. On presentation, she was febrile to 38.7, 88% on room air. Labs showed no leukocytosis, procalcitonin 0.31. UA negative. RPP positive for COVID-19. Blood cultures collected. CXR with bilateral perihilar prominent bronchovascular markings with pulmonary vascular congestion. Pt was started on remdesivir, dexamethasone, diuresis. Blood cultures returned with Aeromonas hydrophila/caviae in 3/4 sets. Pt is on cefepime. Discussion: Unclear source of Aeromonas bacteremia--typically found in fresh and brackish water. Can cause soft tissue infections and sepsis in immunocompromised individuals, and can be associated with diarrheal disease in immunocompetent. Pt without signs of soft tissue infection or diarrhea however. Most patients with Aeromonas bacteremia are immunocompromised. Cases of Aeromonas infection causing intraabdominal abscess, hepatobiliary infection, SBP, meningitis, endocarditis, suppurative thrombophlebitis, osteomyelitis, UTI, pneumonia (i.e near drowning), empyema, lung abscess have been reported. However, pt without clear signs of any of these. Resistant to penicillin and ampicillin, often resistant to cefazolin, but often susceptible to third generation cephalosporins, carbapenems, fluoroquinolones. Recommendations: - Unclear source of Aeromonas bacteremia--see above discussion. Follow-up Aeromonas susceptibilities - Ordered repeat set of blood cultures - Can continue cefepime for now - Continue COVID-19 management with remdesivir and dexamethasone Will continue to follow. Consultation Information Consultation was provided via telemedicine using two-way real-time interactive telecommunication between the patient and the telemedicine provider. For the duration of the visit, the provider was performing the assessment from a different facility than the patient. This includesuse of bluetooth stethoscope forauscultationperformed by the telepresenter that the telemedicine provider can hear if described in the physical exam. Device Processing Engineer contact information: Please call [facility] . (Phone Number For Physician Use Only) After establishing a telemedicine visit, patient was: Patient was verified with two unique identifiers, Patient/authorized rep acknowledged consent and understanding and Gave permission to continue telehealth session Time Spent with Patient: Initial => 40 min History of Present Illness Reason for Consultation: Bacteremia Attending Physician: Елена Guerrero MD History of Present Illness 69 yo F with TOMASA not on CPAP, asthma, diastolic HF, obesity, HTN, depression who presented on 05/15 with weakness after sliding off a couch at home and being unable to get up. Pt reported weakness x 1-2 days, nasal congestion, shortness of breath. Denied abd pain, N/V, dysuria. On presentation, she was febrile to 38.7, 88% on room air. Labs showed no leukocytosis, procalcitonin 0.31. UA negative. RPP positive for COVID-19. Blood cultures collected. CXR with bilateral perihilar prominent bronchovascular markings with pulmonary vascular congestion. Pt was started on remdesivir, dexamethasone, diuresis. Blood cultures returned with Aeromonas hydrophila/caviae in 3/4 sets. Pt is on cefepime. Allergies Allergy/AdvReac Type Severity Reaction Status Date / Time No Known Allergies Allergy Unknown Verified 05/15/24 08:32 Home Medications Medication Instructions Recorded Confirmed Type multivitamin 1 tab PO QAM 07/25/20 05/15/24 History ferrous sulfate 325 mg (65 mg 325 mg PO QAM 04/21/21 05/15/24 History iron) tablet (iron) polyethylene glycol 3350 17 gram 17 g PO DAILY PRN Constipation 04/21/21 05/15/24 History oral powder packet (Miralax) escitalopram oxalate 20 mg tablet 20 mg PO QAM #90 tabs 06/20/23 05/15/24 Rx (Lexapro) metoprolol succinate 25 mg 25 mg PO QAM #90 tabs 06/20/23 05/15/24 Rx tablet,extended release 24 hr omeprazole 20 mg capsule,delayed 20 mg PO QAM #90 caps 06/20/23 05/15/24 Rx release rosuvastatin 40 mg tablet 40 mg PO DAILY #90 tabs 06/21/23 05/15/24 Rx albuterol sulfate 90 mcg/actuation 2 puff inhalation BID PRN 09/02/23 05/15/24 Rx aerosol inhaler Shortness Of Breath Or Wheezing #18 grams furosemide 20 mg tablet (Lasix) 20 mg PO QAM #90 tabs 12/19/23 05/15/24 Rx fluticasone 250 mcg-salmeterol 50 1 inh inhalation Q12H #60 ea 01/09/24 05/15/24 Rx mcg/dose blistr powdr for inhalation (Advair Diskus) losartan 25 mg tablet 25 mg PO DAILY #90 tabs 03/16/24 05/15/24 Rx propranolol 40 mg tablet 40 mg PO BID #180 tabs 04/23/24 05/15/24 Rx aspirin 81 mg tablet,delayed 81 mg PO BID 05/15/24 05/15/24 History release lorazepam 0.5 mg tablet 0.5 mg PO DAILY PRN Anxiety 05/15/24 05/15/24 History Patient History Medical History Encounter for pre-operative examination Routine health maintenance Premature ventricular contraction follows with Dr Marrufo last seen 05/2022 Atypical chest pain [place] [facility] [place] for this. At the time reported chest discomfort at random but most often during times of increased emotional stress. EKG normal sinus with no acute STT wave abnormality. Also had work-up for this in 2016 with normal DSE. Per cardiology can follow-up as needed but no further cardiovascular testing or intervention recommended. Patient denies any recent chest pain at [facility]. GERD (gastroesophageal reflux disease) SOB (shortness of breath) on exertion with climbing stairs Venous thromboembolism (~2009) DVT/PE. No longer on anticoagulation. Surgical History History of arthroscopic procedure on shoulder right 2020 History of hand surgery MASS REMOVAL FROM FINGER History of oral surgery REMOVAL GROWTH UNDER TONGUE History of colonoscopy History of carpal tunnel surgery LEFT Right in November 2022 S/P tonsillectomy Family History Grandmother Breast cancer Father Diabetes Heart disease Myocardial infarction Grandfather Diabetes Stroke Brother Myocardial infarction Uncle Family hx of colon cancer Denies family history of Ovarian cancer Prostate cancer Lung cancer Colorectal cancer Hypertension Social History Smoking Status: Former smoker Tobacco Type: Cigarettes Age Started Using Tobacco: 48; Age Quit Using Tobacco: 50; packs per day: 0.5; Cigarettes Per Day: Couple per day, quit 8 years ago; Second Hand Exposure: No; Do You Dip or Chew Tobacco: No; Tobacco Cessation Education Requested by Patient: No Hx Alcohol Use: Yes Alcohol type: beer Alcohol Intake Frequency: Monthly or Less Hx Substance Use: No Preferred Language: Burundian Communication Ability: Effective Visual Impairment: Limited Hearing Ability: Normal Bathhouse Attendant Required: No Beliefs That Will Affect Care: None marital status: Current Living Situation: Spouse Current Living Situation Comment: Rad current occupational status: retired How many Children do You have: 2 Other Information That Helps Us Care for You: No Feels Safe at Home: Yes Safety Concerns: Feels Safe At This Time Childhood Exposure to Second-Hand Smoke: No Diet: regular caffeine: Yes (coffee) during the past year weight has: remained stable Dental Care, Regularly: No Physical Activity Frequency: 1-2 Times per Week Seatbelt Use: always Sunscreen Use: No Assistive Devices: Cane, Glasses and Walker Review of System A complete ROS was performed and is negative except as mentioned in the HPI. Physical Exam Physical Exam: GEN: laying in bed in NAD HEENT: Normocephalic, atraumatic. NC in place RESP: No increased work of breathing ABD: Soft, non-distended. Non-tender to palpation. SKIN: No lesions or rashes on exposed skin. NEURO: Alert and oriented. Answers all questions appropriately. Speech not slurred. PSYCH: Normal mood, affect appropriate. Results & Data Vital Signs (Past 12 Hours) Vital Signs Temp Pulse Pulse Resp BP Pulse Ox O2 Del Method 05/16/24 08:03 36.4 C L 52 L 16 111/66 95 Nasal Cannula 05/16/24 07:37 54 L 05/16/24 07:06 52 L 15 98 Nasal Cannula 05/16/24 03:10 36.5 C 65 18 108/65 95 Nasal Cannula 05/15/24 22:57 69 18 96 Nasal Cannula 05/15/24 21:55 66 05/15/24 21:50 Nasal Cannula 05/15/24 21:48 36.5 C 63 22 117/73 95 Nasal Cannula O2 Flow Rate 05/16/24 08:03 3 05/16/24 07:37 05/16/24 07:06 3 05/16/24 03:10 3 05/15/24 22:57 3 05/15/24 21:55 05/15/24 21:50 3 05/15/24 21:48 Laboratory Results Short CBC 05/16/24 Range/Units 06:38 WBC 8.41 (4.8-10.8) K/ul Hgb 10.7 L (12.0-16.0) g/dl Hct 33.3 L (37.0-47.0) % Plt Count 157 (130-400) K/uL BMP 05/16/24 06:38 Sodium 140 Potassium 3.8 Chloride 106 Carbon Dioxide 29 BUN 20 Creatinine 0.74 Glucose 126 H Calcium 8.0 L Liver Function 05/16/24 Range/Units 06:38 Total Bilirubin 0.3 (0.2-1.0) mg/dl AST 17 (13-39) U/L ALT 15 (7-52) U/L Alkaline Phosphatase 42 (34-104) U/L Albumin 3.4 (3.4-5.0) gm/dl Diagnostic Findings Chest X-Ray 05/15/24 01:45 EXAM: XR chest 2V PA/lateral CLINICAL HISTORY: Sob TECHNIQUE: X-ray images of the chest were obtained in posteroanterior (PA) and lateral projections. COMPARISON: CR 08/15/2023. FINDINGS: Pulmonary Parenchyma: Lungs show prominent perihilar bronchovascular markings with pulmonary vascular congestion. No evidence of consolidation, collapse, or focal opacities. No pulmonary nodules identified. No evidence of pleural effusion or pleural thickening. Heart and Mediastinum: Heart size and shape are normal. No mediastinal widening or masses. No hilar or mediastinal lymphadenopathy. Prominent aortic arch with wall calcification. Bony Thorax: Bony thorax appears intact without fractures or deformities. Total right shoulder replacement. Severe chronic osteoarthritis of the left shoulder. Soft Tissues: Soft tissues overlying the chest wall are unremarkable. IMPRESSION: Bilateral perihilar prominent bronchovascular markings with pulmonary vascular congestion, more prominent compared to last CR. Prominent aortic arch with atherosclerosis. Electronically signed by Fuentes Lorenz 05-15-2024 02:51 AM Medications Administered Current Inpatient Medications Acetaminophen (Acetaminophen 325 Mg Tab) 650 mg PO Q4H PRN PRN Reason: pain/fever Stop: 06/14/24 07:17 Last Admin: 05/15/24 08:57 Dose: 650 mg Albuterol (Albuterol Hfa 8 Gm Inhaler) 2 puffs INH Q4R [facility] Stop: 06/15/24 06:59 Last Admin: 05/16/24 07:06 Dose: 2 puffs Aspirin (Aspirin 81 Mg Ectab) 81 mg PO BID [facility] Stop: 06/14/24 08:59 Last Admin: 05/15/24 20:16 Dose: 81 mg Enoxaparin Sodium (Enoxaparin Inj 40 Mg/0.4 Ml Syr) 40 mg SQ Q12H [facility] Stop: 06/14/24 07:44 Last Admin: 05/15/24 20:16 Dose: 40 mg Escitalopram Oxalate (Escitalopram Oxalate 20 Mg Tab) 20 mg PO QAM [facility] Stop: 06/14/24 08:59 Last Admin: 05/15/24 08:42 Dose: 20 mg Fluticasone/Vilanterol (Fluticasone/Vilanterol 200/25mcg 14 Puffs/Inhaler) 1 puffs INH DAILY [facility] Stop: 06/14/24 08:59 Last Admin: 05/15/24 08:42 Dose: 1 puffs Furosemide (Furosemide 20 Mg Tab) 20 mg PO QAM [facility] Stop: 06/15/24 08:59 Remdesivir 100 mg/ Sodium (Chloride) 250 mls @ 250 mls/hr IV Q24H [facility] Stop: 05/19/24 06:14 Last Infusion: 05/16/24 06:42 Dose: Infused Dexamethasone 6 mg/ Syringe 1.5 mls @ 1 mls/min IV Q24H [facility] Stop: 06/15/24 06:29 Last Admin: 05/16/24 05:27 Dose: 1 mls/min Cefepime HCl (Maxipime 2000mg) 2,000 mg in 20 mls @ 5 mls/min IV Q12H [facility]; Protocol Stop: 05/29/24 17:29 Last Admin: 05/16/24 05:27 Dose: 5 mls/min Lorazepam (Lorazepam 0.5 Mg Tab) 0.5 mg PO DAILY PRN PRN Reason: anxiety Stop: 06/14/24 07:17 Losartan Potassium (Losartan Potassium 25 Mg Tab) 25 mg PO DAILY [facility] Stop: 06/14/24 08:59 Last Admin: 05/15/24 08:43 Dose: 25 mg Melatonin (Melatonin 3 Mg Tab) 6 mg PO HS PRN PRN Reason: Insomnia Stop: 06/14/24 07:17 Last Admin: 05/15/24 21:55 Dose: 6 mg Metoprolol Succinate (Metoprolol Succ 25mg Ext Rel Tab) 25 mg PO QAM [facility] Stop: 06/14/24 08:59 Last Admin: 05/15/24 08:43 Dose: 25 mg Ondansetron HCl (Ondansetron Inj 2 Mg/Ml 2 Ml Vial) 4 mg IV Q6H PRN PRN Reason: Nausea Stop: 06/14/24 07:17 Pantoprazole Sodium (Pantoprazole 40 Mg Tab) 40 mg PO QAM [facility] Stop: 06/14/24 08:59 Last Admin: 05/15/24 08:44 Dose: 40 mg Polyethylene Glycol (Polyethylene (Miralax) 17 Gm Pack) 17 gm PO DAILY PRN PRN Reason: Constipation Stop: 06/14/24 07:17 Propranolol HCl (Propranolol Hcl 20 Mg Tab) 40 mg PO BID [facility] Stop: 06/14/24 08:59 Last Admin: 05/15/24 20:16 Dose: 40 mg
[2024-05-16] MEDS: FUROSEMIDE 20 MG TAB PO SCH (10:29)
--- NOTE | 2024-05-16 11:44 | Hospitalist Progress Note ---
Date of Service May 16, 2024 Assessment & Plan (1) COVID-19: (2) Obstructive sleep apnea: (3) Asthma: (4) Depression with anxiety: (5) Chronic diastolic (congestive) heart failure: (6) Bacteremia: Plan Pt is a 69 yo female with a past med hx of TOMASA not on CPAP, asthma, diastolic HF (last echo april 2021), obesity, HTN, depression who presents to the hospital on 05/15 for weakness after sliding off the couch at home and being unable to get up, found to have COVID-19, admitted for hypoxia with ambulation. Bacteremia Blood culture growing Aeromonas source is uncertain Empirically on IV Cefepime ID is on consult #COVID-19 infection in asthmatic pt - also with hx of TOMASA but does not use CPAP (states she was ordered one but had issues with it, not interested in CPAP here) - admission [facility]fire + for COVID 19 - will continue remdesivir - will continue dexamethasone 6 mg daily - tylenol for fever - home albuterol q4h - home advair or formulary equivalent #HFpEF - was given 2L in 1L boluses x2 in the ED - CXR on admission with pulm congestion - takes lasix 20 mg daily, will do 40 mg dose on admission then continue daily dosing - consider new echo - continue metoprolol #HTN - continue home losartan - continue home propranolol #Depression with anxiety - continue home escitalopram - home lorazepam for prn anxiety Hypoxia Secondary to COVID PNA and Pulm congestion continue mgt as above supplemenatl oxygen wean as tolerated Holding home statin given remdesivir VTE: Lovenox Admission and Anticipated Discharge Date Admission Date: May 15, 2024 Subjective patient seen and examined, denies chills , feels a little better today Review of Systems Review of Systems: All systems reviewed are negative, apart from the ones contained in the history. Physical Exam Physical Exam: The patient is awake, alert and oriented 3, well developed and well nourished, normocephalic and atraumatic, lying in bed and in no acute distress. HEENT--PERRL, EOMI, mucous membranes and oropharynx mildly dry Neck--supple. No JVD. No bruits. Thyroid normal, trachea midline, no adenopathy. Heart--normal S1 and S2. No murmurs, rubs or gallops. Lungs--clear bilaterally, no respiratory distress, no accessory muscle use. Abdomen--normal bowel sounds and soft. Extremities--no cyanosis or clubbing. No edema. Dermatologic--normal skin turgor, normal color, no abnormal lymph nodes, no rash. Neurologic--cranial nerves II through XII grossly intact. Rheumatologic--normal range of motion. Psychiatric--normal affect. Results & Data Results & Data Vital Signs (Past 12 Hours) Vital Signs Temp Pulse Pulse Resp BP Pulse Ox O2 Del Method 05/16/24 10:35 79 20 95 Nasal Cannula 05/16/24 08:03 97.5 F L 52 L 16 111/66 95 Nasal Cannula 05/16/24 07:37 54 L 05/16/24 07:06 52 L 15 98 Nasal Cannula 05/16/24 03:10 97.7 F 65 18 108/65 95 Nasal Cannula O2 Flow Rate 05/16/24 10:35 3 05/16/24 08:03 3 05/16/24 07:37 05/16/24 07:06 3 05/16/24 03:10 3 PG Care Time/CCT Total # of Minutes Spent Total Time Spent with Patient: Total time spent is greater than 50% in coordination of care (as documented) at patient's floor/unit and/or counseling patient: Coding Level of Care Code 45210 SUB INP/OBS CARE 2/35MIN Diagnoses COVID-19 U07.1 Obstructive sleep apnea G47.33 Uncomplicated asthma, unspecified asthma severity, unspecified whether persistent J45.909 Asthma severity: unspecified severity Asthma persistence: unspecified Asthma complication type: uncomplicated Depression with anxiety F41.8 Chronic diastolic (congestive) heart failure I50.32 Bacteremia R78.81 Time Spent (min) 35 (3) Asthma Asthma severity: unspecified severity Asthma persistence: unspecified Asthma complication type: uncomplicated Qualified Code(s): J45.909 - Unspecified asthma, uncomplicated
[2024-05-16] MEDS: CEFEPIME 2000MG 2,000 MG/20 ML SYR IV SCH (12:53)
[2024-05-17 06:57] LABS: Basophils # (auto) 0.01 K/uL (0.00-0.20); Basophils % (auto) 0.1 %; Hematocrit (blood only) 34.9 % (37.0-47.0); Hemoglobin 11.1 g/dl (12.0-16.0); Immature Granulocytes # (auto) 0.03 K/uL (0.01-0.20); Immature Granulocytes % (auto) 0.3 %; Lymphocytes # (auto) 1.29 K/uL (1.20-3.40); Lymphocytes % (auto) 14.5 %; Mean Corpuscular Hgb Conc 31.8 g/dL (32.0-36.0); Mean Corpuscular Volume 88.1 fL (80.0-100.0); Mean Platelet Volume 10.2 fL (9.4-12.4); Monocytes # (auto) 0.62 K/uL (0.11-0.59); Neutrophils # (auto) 6.96 K/uL (1.40-6.50); Neutrophils % (auto) 78.1 %; Platelet Count 166 K/uL (130-400); RDW Coefficient of Variation 14.6 % (11.5-14.5); RDW Standard Deviation 47.6 fL (36.4-46.3); Red Blood Count 3.96 M/uL (4.20-5.40); White Blood Count 8.91 K/ul (4.8-10.8)
[2024-05-17 07:17] LABS: Albumin Globulin Ratio 1.4 (0.9-2); Albumin Level 3.4 gm/dl (3.4-5.0); BUN Creatinine Ratio 32.2 (10-20); Bilirubin,Total 0.3 mg/dl (0.2-1.0); Calcium 8.5 mg/dl (8.6-10.3); Creatinine Clr Calc Pharmacy 64.2 ml/min; Globulin 2.5 gm/dl (2.5-4.0); Potassium 3.9 mmol/L (3.5-5.1); Total Protein 5.9 gm/dl (6.0-8.3)
--- NOTE | 2024-05-17 09:03 | Infectious Disease Progress Nt ---
Date of Service May 17, 2024 Assessment & Plan (1) Bacteremia: (2) COVID-19: (3) Hypoxia: Plan Problems: #Aeromonas hydrophila/caviae bacteremia #COVID-19 #Hypoxia: on 3 L NC, now improved Micro: 05/16 BCx x2: pending 05/15 BCx x2: Aeromonas hydrophila/caviae in 3/4 bottles (S amox/clav, amp/sul, ceftriaxone, cefuroxime, TMP/SMX, pip/tazo. R cefaz) Abx: Cefepime 05/15 - 05/17 Ceftriaxone 05/17 - present 69 yo F with TOMASA not on CPAP, asthma, diastolic HF, obesity, HTN, depression who presented on 05/15 with weakness after sliding off a couch at home and being unable to get up, nasal congestion, shortness of breath, admitted with COVID-19 and found to have Aeromonas hydrophila/caviae bacteremia. Denied abd pain, N/V, dysuria. No wounds. On presentation, she was febrile to 38.7, 88% on room air. Labs showed no leukocytosis, procalcitonin 0.31. UA negative. RPP positive for COVID-19. Blood cultures collected. CXR with bilateral perihilar prominent bronchovascular markings with pulmonary vascular congestion. Pt was started on remdesivir, dexamethasone, diuresis. Blood cultures returned with Aeromonas hydrophila/caviae in 3/4 sets. Pt is on cefepime. Discussion: Unclear source of Aeromonas bacteremia--typically found in fresh and brackish water. Can cause soft tissue infections and sepsis in immunocompromised individuals, and can be associated with diarrheal disease in immunocompetent. Pt without signs of soft tissue infection or diarrhea however. Most patients with Aeromonas bacteremia are immunocompromised. Cases of Aeromonas infection causing intraabdominal abscess, hepatobiliary infection, SBP, meningitis, endocarditis, suppurative thrombophlebitis, osteomyelitis, UTI, pneumonia (i.e near drowning), empyema, lung abscess have been reported. However, pt without clear signs of any of these. Resistant to penicillin and ampicillin, often resistant to cefazolin, but often susceptible to third generation cephalosporins, carbapenems, fluoroquinolones. Recommendations: - Narrowed cefepime to ceftriaxone 2 g IV q24h based on Aeromonas susceptibilities. Anticipate switching to Augmentin PO on discharge - Follow-up repeat blood cultures from 05/16 - Continue COVID-19 management with remdesivir and dexamethasone Will continue to follow Admission and Anticipated Discharge Date Admission Date: May 15, 2024 Subjective This patient recommendation is based on a telemedicine consult request which was completed asynchronously through chart review and information provided by the primary physician. The patient was not seen or examined today. The evaluation is consultative in nature and all patient care and treatment decisions can either be accepted or rejected by the patient's primary hospital-based treating physician using their own independent medical judgment for their patient. Time Spent Reviewing Chart: 11 - 20 minutes Afebrile without leukocytosis, on room air Results & Data Vital Signs (Past 12 Hours) Vital Signs Temp Pulse Pulse Resp BP Pulse Ox O2 Del Method 05/17/24 07:45 36.9 C 57 L 18 136/71 92 Room Air 05/17/24 07:32 84 16 93 Room Air 05/17/24 07:30 54 L 05/17/24 04:24 36.5 C 62 18 146/84 H 93 Nasal Cannula 05/16/24 23:26 86 18 97 Nasal Cannula 05/16/24 23:05 36.6 C 67 18 96/53 L 94 Nasal Cannula 05/16/24 21:56 61 O2 Flow Rate 05/17/24 07:45 05/17/24 07:32 05/17/24 07:30 05/17/24 04:24 2 05/16/24 23:26 1 05/16/24 23:05 05/16/24 21:56 Laboratory Results Short CBC 05/17/24 Range/Units 05:55 WBC 8.91 (4.8-10.8) K/ul Hgb 11.1 L (12.0-16.0) g/dl Hct 34.9 L (37.0-47.0) % Plt Count 166 (130-400) K/uL BMP 05/17/24 05:55 Sodium 139 Potassium 3.9 Chloride 105 Carbon Dioxide 29 BUN 28 H Creatinine 0.87 Glucose 114 H Calcium 8.5 L Liver Function 05/17/24 Range/Units 05:55 Total Bilirubin 0.3 (0.2-1.0) mg/dl AST 12 L (13-39) U/L ALT 13 (7-52) U/L Alkaline Phosphatase 42 (34-104) U/L Albumin 3.4 (3.4-5.0) gm/dl Medications Administered Current Inpatient Medications Acetaminophen (Acetaminophen 325 Mg Tab) 650 mg PO Q4H PRN PRN Reason: pain/fever Stop: 06/14/24 07:17 Last Admin: 05/16/24 23:10 Dose: 650 mg Albuterol (Albuterol Hfa 8 Gm Inhaler) 2 puffs INH Q4R [facility] Stop: 06/15/24 06:59 Last Admin: 05/17/24 07:32 Dose: 2 puffs Aspirin (Aspirin 81 Mg Ectab) 81 mg PO BID [facility] Stop: 06/14/24 08:59 Last Admin: 05/16/24 20:06 Dose: 81 mg Enoxaparin Sodium (Enoxaparin Inj 40 Mg/0.4 Ml Syr) 40 mg SQ Q12H [facility] Stop: 06/14/24 07:44 Last Admin: 05/17/24 07:09 Dose: 40 mg Escitalopram Oxalate (Escitalopram Oxalate 20 Mg Tab) 20 mg PO QAM [facility] Stop: 06/14/24 08:59 Last Admin: 05/17/24 08:23 Dose: 20 mg Fluticasone/Vilanterol (Fluticasone/Vilanterol 200/25mcg 14 Puffs/Inhaler) 1 puffs INH DAILY [facility] Stop: 06/14/24 08:59 Last Admin: 05/17/24 08:23 Dose: 1 puffs Furosemide (Furosemide 20 Mg Tab) 20 mg PO QAM [facility] Stop: 06/15/24 08:59 Last Admin: 05/17/24 08:21 Dose: 20 mg Remdesivir 100 mg/ Sodium (Chloride) 250 mls @ 250 mls/hr IV Q24H [facility] Stop: 05/19/24 06:14 Last Infusion: 05/17/24 07:09 Dose: Infused Dexamethasone 6 mg/ Syringe 1.5 mls @ 1 mls/min IV Q24H [facility] Stop: 06/15/24 06:29 Last Admin: 05/17/24 05:54 Dose: 1 mls/min Ceftriaxone Sodium (Rocephin) 2,000 mg in 50 mls @ 100 mls/hr IV Q24H [facility] Stop: 05/31/24 13:59 Lorazepam (Lorazepam 0.5 Mg Tab) 0.5 mg PO DAILY PRN PRN Reason: anxiety Stop: 06/14/24 07:17 Losartan Potassium (Losartan Potassium 25 Mg Tab) 25 mg PO DAILY [facility] Stop: 06/14/24 08:59 Last Admin: 05/17/24 08:23 Dose: 25 mg Melatonin (Melatonin 3 Mg Tab) 6 mg PO HS PRN PRN Reason: Insomnia Stop: 06/14/24 07:17 Last Admin: 05/16/24 20:06 Dose: 6 mg Metoprolol Succinate (Metoprolol Succ 25mg Ext Rel Tab) 25 mg PO QAM [facility] Stop: 06/14/24 08:59 Last Admin: 05/17/24 08:23 Dose: Not Given Ondansetron HCl (Ondansetron Inj 2 Mg/Ml 2 Ml Vial) 4 mg IV Q6H PRN PRN Reason: Nausea Stop: 06/14/24 07:17 Pantoprazole Sodium (Pantoprazole 40 Mg Tab) 40 mg PO QAM [facility] Stop: 06/14/24 08:59 Last Admin: 05/17/24 08:23 Dose: 40 mg Polyethylene Glycol (Polyethylene (Miralax) 17 Gm Pack) 17 gm PO DAILY PRN PRN Reason: Constipation Stop: 06/14/24 07:17 Propranolol HCl (Propranolol Hcl 20 Mg Tab) 40 mg PO BID [facility] Stop: 06/14/24 08:59 Last Admin: 05/17/24 08:21 Dose: Not Given
--- NOTE | 2024-05-17 10:52 | Hospitalist Progress Note ---
Date of Service May 17, 2024 Assessment & Plan (1) COVID-19: (2) Obstructive sleep apnea: (3) Asthma: (4) Depression with anxiety: (5) Chronic diastolic (congestive) heart failure: (6) Bacteremia: Plan Pt is a 69 yo female with a past med hx of TOMASA not on CPAP, asthma, diastolic HF (last echo april 2021), obesity, HTN, depression who presents to the hospital on 05/15 for weakness after sliding off the couch at home and being unable to get up, found to have COVID-19, admitted for hypoxia with ambulation. Bacteremia Blood culture growing Aeromonas source is uncertain Switch IV cefepime to ceftriaxone per infectious diseases. Will discharge on p.o. Augmentin ID is on consult #COVID-19 infection in asthmatic pt - also with hx of TOMASA but does not use CPAP (states she was ordered one but had issues with it, not interested in CPAP here) - admission [facility] + for COVID 19 - will continue remdesivir - will continue dexamethasone 6 mg daily - tylenol for fever - home albuterol q4h - home advair or formulary equivalent #HFpEF - was given 2L in 1L boluses x2 in the ED - CXR on admission with pulm congestion - takes lasix 20 mg daily, will do 40 mg dose on admission then continue daily dosing - consider new echo - continue metoprolol #HTN - continue home losartan - continue home propranolol #Depression with anxiety - continue home escitalopram - home lorazepam for prn anxiety Hypoxia Secondary to COVID PNA and Pulm congestion Now resolved, patient on room air Holding home statin given remdesivir VTE: Lovenox Disposition: Hopefully discharge home in the next 24 hours Admission and Anticipated Discharge Date Admission Date: May 15, 2024 Subjective Patient seen and examined, now on room air, feels a lot better Review of Systems Review of Systems: All systems reviewed are negative, apart from the ones contained in the history. Physical Exam Physical Exam: The patient is awake, alert and oriented 3, well developed and well nourished, normocephalic and atraumatic, lying in bed and in no acute distress. HEENT--PERRL, EOMI, mucous membranes and oropharynx mildly dry Neck--supple. No JVD. No bruits. Thyroid normal, trachea midline, no adenopathy. Heart--normal S1 and S2. No murmurs, rubs or gallops. Lungs--clear bilaterally, no respiratory distress, no accessory muscle use. Abdomen--normal bowel sounds and soft. Extremities--no cyanosis or clubbing. No edema. Dermatologic--normal skin turgor, normal color, no abnormal lymph nodes, no rash. Neurologic--cranial nerves II through XII grossly intact. Rheumatologic--normal range of motion. Psychiatric--normal affect. Results & Data Results & Data Vital Signs (Past 12 Hours) Vital Signs Temp Pulse Pulse Resp BP Pulse Ox O2 Del Method 05/17/24 09:38 Room Air 05/17/24 07:45 98.4 F 57 L 18 136/71 92 Room Air 05/17/24 07:32 84 16 93 Room Air 05/17/24 07:30 54 L 05/17/24 04:24 97.7 F 62 18 146/84 H 93 Nasal Cannula 05/16/24 23:26 86 18 97 Nasal Cannula 05/16/24 23:05 97.9 F 67 18 96/53 L 94 Nasal Cannula O2 Flow Rate 05/17/24 09:38 05/17/24 07:45 05/17/24 07:32 05/17/24 07:30 05/17/24 04:24 2 05/16/24 23:26 1 05/16/24 23:05 PG Care Time/CCT Total # of Minutes Spent Total Time Spent with Patient: Total time spent is greater than 50% in coordination of care (as documented) at patient's floor/unit and/or counseling patient: Coding Level of Care Code 89862 SUB INP/OBS CARE 2/35MIN Diagnoses COVID-19 U07.1 Obstructive sleep apnea G47.33 Uncomplicated asthma, unspecified asthma severity, unspecified whether persistent J45.909 Asthma severity: unspecified severity Asthma persistence: unspecified Asthma complication type: uncomplicated Depression with anxiety F41.8 Chronic diastolic (congestive) heart failure I50.32 Bacteremia R78.81 Time Spent (min) 35 (3) Asthma Asthma severity: unspecified severity Asthma persistence: unspecified Asthma complication type: uncomplicated Qualified Code(s): J45.909 - Unspecified asthma, uncomplicated
[2024-05-17] MEDS: cefTRIAXone SODIUM 2,000 MG/50 ML BAG IV SCH (13:36)
[2024-05-17] MEDS ORDERED: ALBUTEROL HFA 8 GM INHALER INH PRN (21:00)
[2024-05-18 07:04] LABS: Hematocrit (blood only) 35.2 % (37.0-47.0); Hemoglobin 11.4 g/dl (12.0-16.0); Immature Granulocytes # (auto) 0.03 K/uL (0.01-0.20); Immature Granulocytes % (auto) 0.4 %; Lymphocytes # (auto) 2.03 K/uL (1.20-3.40); Mean Corpuscular Hemoglobin 27.9 pg (25.0-34.0); Mean Corpuscular Hgb Conc 32.4 g/dL (32.0-36.0); Mean Corpuscular Volume 86.3 fL (80.0-100.0); Monocytes # (auto) 0.43 K/uL (0.11-0.59); Monocytes % (auto) 6.1 %; Neutrophils # (auto) 4.51 K/uL (1.40-6.50); Neutrophils % (auto) 64.5 %; Platelet Count 176 K/uL (130-400); RDW Coefficient of Variation 14.4 % (11.5-14.5); RDW Standard Deviation 45.2 fL (36.4-46.3); Red Blood Count 4.08 M/uL (4.20-5.40)
[2024-05-18 07:24] LABS: Albumin Globulin Ratio 1.3 (0.9-2); Albumin Level 3.3 gm/dl (3.4-5.0); BUN Creatinine Ratio 29.1 (10-20); Bilirubin,Total 0.3 mg/dl (0.2-1.0); Calcium 8.3 mg/dl (8.6-10.3); Creatinine Clr Calc Pharmacy 70.8 ml/min; Globulin 2.5 gm/dl (2.5-4.0); Potassium 3.9 mmol/L (3.5-5.1); Total Protein 5.8 gm/dl (6.0-8.3)
--- NOTE | 2024-05-18 09:41 | Infectious Disease Progress Nt ---
Date of Service May 18, 2024 Assessment & Plan (1) Bacteremia: (2) COVID-19: (3) Hypoxia: Plan Problems: #Aeromonas hydrophila/caviae bacteremia #COVID-19 #Hypoxia: on 3 L NC, now resolved Micro: 05/16 BCx x2: NGTD 05/15 BCx x2: Aeromonas hydrophila/caviae in 3/4 bottles (S amox/clav, amp/sul, ceftriaxone, cefuroxime, TMP/SMX, pip/tazo. R cefaz) Abx: Cefepime 05/15 - 05/17 Ceftriaxone 05/17 - present 69 yo F with TOMASA not on CPAP, asthma, diastolic HF, obesity, HTN, depression who presented on 05/15 with weakness after sliding off a couch at home and being unable to get up, nasal congestion, shortness of breath, admitted with COVID-19 and found to have Aeromonas hydrophila/caviae bacteremia of unclear source. Denied abd pain, N/V, dysuria. No wounds. On presentation, she was febrile to 38.7, 88% on room air. Labs showed no leukocytosis, procalcitonin 0.31. UA negative. RPP positive for COVID-19. Blood cultures collected. CXR with bilateral perihilar prominent bronchovascular markings with pulmonary vascular congestion. Pt was started on remdesivir, dexamethasone, diuresis. Blood cultures returned with Aeromonas hydrophila/caviae in 3/4 sets. Pt is on cefepime. Discussion: Unclear source of Aeromonas bacteremia--typically found in fresh and brackish water. Can cause soft tissue infections and sepsis in immunocompromised individuals, and can be associated with diarrheal disease in immunocompetent. Pt without signs of soft tissue infection or diarrhea however. Most patients with Aeromonas bacteremia are immunocompromised. Cases of Aeromonas infection causing intraabdominal abscess, hepatobiliary infection, SBP, meningitis, endocarditis, suppurative thrombophlebitis, osteomyelitis, UTI, pneumonia (i.e near drowning), empyema, lung abscess have been reported. However, pt without clear signs of any of these. Resistant to penicillin and ampicillin, often resistant to cefazolin, but often susceptible to third generation cephalosporins, carbapenems, fluoroquinolones. Recommendations: - On discharge, can transition to Augmentin 875 mg PO BID through 05/22 to complete a total 7 day course of antibiotics Will sign off. Admission and Anticipated Discharge Date Admission Date: May 15, 2024 Subjective This patient recommendation is based on a telemedicine consult request which was completed asynchronously through chart review and information provided by the primary physician. The patient was not seen or examined today. The evaluation is consultative in nature and all patient care and treatment decisions can either be accepted or rejected by the patient's primary hospital-based treating physician using their own independent medical judgment for their patient. Time Spent Reviewing Chart: 11 - 20 minutes No acute events Results & Data Vital Signs (Past 12 Hours) Vital Signs Temp Pulse Pulse Resp BP Pulse Ox O2 Del Method 05/18/24 09:23 36.4 C L 68 19 166/77 H 92 05/18/24 09:18 Room Air 05/18/24 07:52 36.4 C L 68 19 166/77 H 92 Room Air 05/18/24 07:16 61 05/18/24 03:54 36.9 C 64 18 107/65 93 Nasal Cannula 05/18/24 00:00 64 05/17/24 23:15 36.6 C 67 18 109/66 94 Nasal Cannula O2 Flow Rate 05/18/24 09:23 05/18/24 09:18 05/18/24 07:52 05/18/24 07:16 05/18/24 03:54 2 05/18/24 00:00 05/17/24 23:15 2 Laboratory Results Short CBC 05/18/24 Range/Units 06:21 WBC 7.00 (4.8-10.8) K/ul Hgb 11.4 L (12.0-16.0) g/dl Hct 35.2 L (37.0-47.0) % Plt Count 176 (130-400) K/uL BMP 05/18/24 06:21 Sodium 138 Potassium 3.9 Chloride 103 Carbon Dioxide 31 BUN 23 Creatinine 0.79 Glucose 90 Calcium 8.3 L Liver Function 05/18/24 Range/Units 06:21 Total Bilirubin 0.3 (0.2-1.0) mg/dl AST 12 L (13-39) U/L ALT 13 (7-52) U/L Alkaline Phosphatase 39 (34-104) U/L Albumin 3.3 L (3.4-5.0) gm/dl Medications Administered Current Inpatient Medications Acetaminophen (Acetaminophen 325 Mg Tab) 650 mg PO Q4H PRN PRN Reason: pain/fever Stop: 06/14/24 07:17 Last Admin: 05/16/24 23:10 Dose: 650 mg Albuterol (Albuterol Hfa 8 Gm Inhaler) 2 puffs INH Q4R PRN PRN Reason: Shortness Of Breath Or Wheezin Stop: 06/15/24 06:59 Aspirin (Aspirin 81 Mg Ectab) 81 mg PO BID [facility] Stop: 06/14/24 08:59 Last Admin: 05/18/24 07:50 Dose: 81 mg Enoxaparin Sodium (Enoxaparin Inj 40 Mg/0.4 Ml Syr) 40 mg SQ Q12H [facility] Stop: 06/14/24 07:44 Last Admin: 05/18/24 05:56 Dose: 40 mg Escitalopram Oxalate (Escitalopram Oxalate 20 Mg Tab) 20 mg PO QAM [facility] Stop: 06/14/24 08:59 Last Admin: 05/18/24 07:52 Dose: 20 mg Fluticasone/Vilanterol (Fluticasone/Vilanterol 200/25mcg 14 Puffs/Inhaler) 1 puffs INH DAILY [facility] Stop: 06/14/24 08:59 Last Admin: 05/18/24 07:50 Dose: 1 puffs Furosemide (Furosemide 20 Mg Tab) 20 mg PO QAM [facility] Stop: 06/15/24 08:59 Last Admin: 05/18/24 07:51 Dose: 20 mg Remdesivir 100 mg/ Sodium (Chloride) 250 mls @ 250 mls/hr IV Q24H [facility] Stop: 05/19/24 06:14 Last Infusion: 05/18/24 07:46 Dose: Infused Dexamethasone 6 mg/ Syringe 1.5 mls @ 1 mls/min IV Q24H [facility] Stop: 06/15/24 06:29 Last Admin: 05/18/24 05:56 Dose: 1 mls/min Ceftriaxone Sodium (Rocephin) 2,000 mg in 50 mls @ 100 mls/hr IV Q24H [facility] [place] Stop: 05/31/24 13:59 Last Infusion: 05/17/24 14:50 Dose: Infused Lorazepam (Lorazepam 0.5 Mg Tab) 0.5 mg PO DAILY PRN PRN Reason: anxiety Stop: 06/14/24 07:17 Losartan Potassium (Losartan Potassium 25 Mg Tab) 25 mg PO DAILY [facility] Stop: 06/14/24 08:59 Last Admin: 05/18/24 07:51 Dose: 25 mg Melatonin (Melatonin 3 Mg Tab) 6 mg PO HS PRN PRN Reason: Insomnia Stop: 06/14/24 07:17 Last Admin: 05/16/24 20:06 Dose: 6 mg Metoprolol Succinate (Metoprolol Succ 25mg Ext Rel Tab) 25 mg PO QAM [facility] [place] Stop: 06/14/24 08:59 Last Admin: 05/18/24 07:51 Dose: 25 mg Ondansetron HCl (Ondansetron Inj 2 Mg/Ml 2 Ml Vial) 4 mg IV Q6H PRN PRN Reason: Nausea Stop: 06/14/24 07:17 Pantoprazole Sodium (Pantoprazole 40 Mg Tab) 40 mg PO QAM [facility] [place] Stop: 06/14/24 08:59 Last Admin: 05/18/24 07:51 Dose: 40 mg Polyethylene Glycol (Polyethylene (Miralax) 17 Gm Pack) 17 gm PO DAILY PRN PRN Reason: Constipation Stop: 06/14/24 07:17 Propranolol HCl (Propranolol Hcl 20 Mg Tab) 40 mg PO BID [facility] [place] Stop: 06/14/24 08:59 Last Admin: 05/18/24 07:51 Dose: 40 mg
--- NOTE | 2024-05-18 11:33 | Discharge Summary ---
Date of Service May 18, 2024 Admission HPI Per Admitting Provider Pt is a 69 yo female with a past med hx of TOMASA not on CPAP, asthma, diastolic HF (last echo april 2021), obesity, HTN, depression who presents to the hospital on 05/15 for weakness after sliding off the couch at home and being unable to get up, found to have COVID-19, admitted for hypoxia with ambulation. Pt seen at bedside. She states she has felt very weak today and maybe yesterday as well and also notes some nasal congestion. She states she does feel her breathing is a bit more labored than usual but no chest pain. No abdominal pain. No nausea or vomiting. No dysuria. She states she lives with her but he is currently admitted at a different hospital, so she is on her own. She states overall she just feels weaker than normal, but otherwise no complaints. With the fall today, she states she went to get up off the couch and ended up sliding off to the ground. No head trauma, no LOC, no chest pain/SOB/palpitations preceding incident. Her biggest concern at admission is that she has a dog at home that would need taken care of with admission to the hospital, but does state her daughter can likely come get her keys to do that. Admission Exam (Per Admitting) Constitutional The patient is awake, alert and oriented 3, well developed and well nourished, normocephalic and atraumatic, lying in bed and in no acute distress. HEENT--PERRL, EOMI, mucous membranes and oropharynx mildly dry Neck--supple. No JVD. No bruits. Thyroid normal, trachea midline, no adenopathy. Heart--normal S1 and S2. No murmurs, rubs or gallops. Lungs--clear bilaterally, no respiratory distress, no accessory muscle use. Abdomen--normal bowel sounds and soft. Extremities--no cyanosis or clubbing. No edema. Dermatologic--normal skin turgor, normal color, no abnormal lymph nodes, no rash. Neurologic--cranial nerves II through XII grossly intact. Rheumatologic--normal range of motion. Psychiatric--normal affect. Discharge Data Consultations 05/15/24 04:29 ED Decision to Admit Stat 05/16/24 07:43 Consult Infectious Diseases Routine Hospital Course (1) COVID-19: (2) Obstructive sleep apnea: (3) Asthma: (4) Depression with anxiety: (5) Chronic diastolic (congestive) heart failure: (6) Bacteremia: Plan Pt is a 69 yo female with a past med hx of TOMASA not on CPAP, asthma, diastolic HF (last echo april 2021), obesity, HTN, depression who presents to the hospital on 05/15 for weakness after sliding off the couch at home and being unable to get up, found to have COVID-19, admitted for hypoxia with ambulation. Bacteremia Blood culture growing Aeromonas source is uncertain Switch IV cefepime to ceftriaxone per infectious diseases. Will discharge on p.o. Augmentin ID is on consult #COVID-19 infection in asthmatic pt - also with hx of TOMASA but does not use CPAP (states she was ordered one but had issues with it, not interested in CPAP here) - admission [facility] + for COVID 19 - will continue remdesivir - will continue dexamethasone 6 mg daily - tylenol for fever - home albuterol q4h - home advair or formulary equivalent #HFpEF - was given 2L in 1L boluses x2 in the ED - CXR on admission with pulm congestion - takes lasix 20 mg daily, will do 40 mg dose on admission then continue daily dosing - consider new echo - continue metoprolol #HTN - continue home losartan - continue home propranolol #Depression with anxiety - continue home escitalopram - home lorazepam for prn anxiety Hypoxia Secondary to COVID PNA and Pulm congestion Now resolved, patient on room air Holding home statin given remdesivir VTE: Lovenox Disposition: d/c today Coding Level of Care Code 51389 INP/OBS DISCH >30 MIN Diagnoses COVID-19 U07.1 Obstructive sleep apnea G47.33 Uncomplicated asthma, unspecified asthma severity, unspecified whether persistent J45.909 Asthma severity: unspecified severity Asthma persistence: unspecified Asthma complication type: uncomplicated Depression with anxiety F41.8 Chronic diastolic (congestive) heart failure I50.32 Bacteremia R78.81 Time Spent (min) 35
[2024-05-18 11:42] VITALS: BP 134/75; PULSE 73; RESP 16; TEMP 97.7; O2SAT 93
== END 2024-05-18 14:00 | disposition home health service (06) | DRG 177 ==
LOC: SUATTDRO → ED 01:20 → EDINP 01:20 → 3N 07:18 → SUATTDRO 17:51 → 2N 21:46